=== PATIENT | female | born 2005 | race Caucasian/White ===

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

== ENCOUNTER 2023-01-18 08:30 | Outpatient (CLI) | payer OTHER, SELFPAY ==
[2023-01-18 08:52] VITALS: TEMP 36.7; O2SAT 99
[2023-01-18 08:53] VITALS: BP 118/65; PULSE 80
[2023-01-18 09:16] VITALS: BMI 34.9
--- NOTE | 2023-01-19 01:56 | OB.TRI.PN_ITS ---
Progress Notes Date of Service: 01/18/23 Progress Note: Patient presents for triage evaluation secondary to decreased movement FHT: 140 Moderate variability reactive 10 x 10 accels no decelerations category I tracing [place]: no regular Contractions Assessment and plan: dec movement Reactive NST, reassuring maternal and status patient discharged to home to follow-up as scheduled. See problem list details for additional plan information. Charges/Coding Procedures Urinary/Genital [id number]: 44464-44 non-stress test Interp
== END 2023-01-18 09:28 | disposition home or self-care (01) ==
LOC: WPOUT 08:36 → WP 08:37
PROVIDERS: PCP Nurse Practitioner Pediatrics; Referring Provider Obstetrics & Gynecology; Visit Provider Obstetrics & Gynecology
DX: O36.8190 Decreased fetal movements, unspecified trimester, not applicable or unspecified (principal); Z3A.00 Weeks of gestation of pregnancy not specified
CPT/HCPCS: 59050; 99221; G0378

== ENCOUNTER → 2023-02-08 | Outpatient (CLI) | payer OTHER, SELFPAY ==
[2023-02-08 10:44] LABS: Absolute Lymphocyte Count 1.67 X10^3/uL (0.83-4.51); Absolute Neutrophil Count 6.8 X10^3/uL (2.0-7.7); Basophil# 0.02 X10^3/uL; Basophil% 0.2 % (0-1); Eosinophil# 0.07 X10^3/uL; Eosinophils% 0.8 % (0-5); Hematocrit 34.3 % (37-47); Hemoglobin 11.2 g/dL (12.0-15.0); Lymphocyte # 1.67 X10^3/ul (0.83-4.51); Mean Corp Hgb Conc 32.7 g/dL (32-36); Mean Corpuscular Hgb 28.8 pg (27.0-32.0); Mean Corpuscular Volume 88.2 fL (81-99); Mean Platelet Vol. 10.4 fl (6.2-12.0); Monocyte# 0.66 X10^3/uL; Monocyte% 7.1 % (0-10); NRBC Flagged by Analyzer 0 % (0-5); Neutrophil % 73.1 % (47-70); Platelet Count 169 K/mm3 (150-450); RBC Distribution Width SD 42.4 fl (35.1-43.9); Red Blood Count 3.89 M/mm3 (4.2-5.4); White Blood Count 9.3 K/mm3 (4.4-11.0)
[2023-02-08 11:21] LABS: Glucose Challenge Gest 1H 50g 96 mg/dL (70-140)
[2023-02-08 11:53] LABS: HIV - WCH Non-Reactive (Nonreactive); Syphilis Antibodies Non-reactive
== END | disposition home or self-care (01) ==
LOC: PAVLAB 10:32
PROVIDERS: PCP Nurse Practitioner Pediatrics; Referring Provider Obstetrics & Gynecology; Visit Provider Obstetrics & Gynecology
DX: Z34.00 Encounter for supervision of normal first pregnancy, unspecified trimester (principal)
CPT/HCPCS: 36415; 82950; 85025; 86703; 86780

== ENCOUNTER → 2023-02-26 | Outpatient (CLI) | payer OTHER, SELFPAY | END | disposition home or self-care (01) | LOC: LABSPEC 16:16 | PROVIDERS: PCP Nurse Practitioner Pediatrics; Referring Provider Nurse Practitioner Women's Health; Visit Provider Nurse Practitioner Women's Health | DX: N89.8 Other specified noninflammatory disorders of vagina (principal) | CPT/HCPCS: 87070; 87205 ==

== ENCOUNTER → 2023-04-09 | Outpatient (CLI) | payer OTHER, SELFPAY | END | disposition home or self-care (01) | LOC: LABSPEC 11:37 | PROVIDERS: PCP Nurse Practitioner Pediatrics; Referring Provider Registered Nurse; Visit Provider Registered Nurse | DX: Z34.90 Encounter for supervision of normal pregnancy, unspecified, unspecified trimester (principal) | CPT/HCPCS: 87081 ==

== ENCOUNTER 2023-05-01 17:20 | Outpatient (CLI) | payer OTHER, SELFPAY ==
[2023-05-01 17:31] VITALS: BMI 37.0
[2023-05-01 17:36] VITALS: BP 126/82; PULSE 93
[2023-05-01] MEDS: Lactated Ringers 1,000 ML 999 ML IV (18:05)
[2023-05-01 18:16] LABS: Mucous, Urine 0 SEEN /hpf (<or=2+); Red Blood Cells-Urine 0 SEEN /hpf (0-5)
[2023-05-01 18:25] LABS: Color, Urine Yellow (Yellow); Glucose, Dipstick Normal (Normal); Ketone-Dipstick 5 mg/dl (Negative); Leukocyte Esterase-Dipstick 100 /ul (Negative); Nitrite-Dipstick Negative (Negative); Occult Blood-Urine Negative /ul (Negative); Protein-Dipstick 15 mg/dl (Negative); Urine Bilirubin Dipstick Negative (Negative); Urine Clarity Sl. Cloudy (Clear); Urine Urobilinogen 1 mg/dl (Normal)
[2023-05-01 18:43] LABS: Bacteria 1+ /hpf (None Seen); Squamous Epithelial Cells - UA 0-5 SEEN /hpf (5-10); White Blood Cells 0-5 SEEN /hpf (0-5)
--- NOTE | 2023-05-02 23:45 | OB.TRI.HP_ITS ---
HPI - General HPI Narrative LUCY ANDERSON, is a 18 @ 39 weeks 2 days who presents to L&D with lower than usual amount of kicks. By the time she got to us and was put on monitor the baby was moving rapidly Maternal Data Information RADHA Calculator Estimated Delivery Date Method Current WG Current Estimate 05/06/23 Ultrasound #1 39w 3d Other Estimates 05/11/23 LMP (Certain) 38w 5d 05/02/23 Ultrasound #2 40w 0d PFSH PFSH Medical History Anxiety Migraines Home Medications docosahexaenoic acid 200 mg capsule ( DHA) mg PO 12/13/22 [History Last Taken Unknown] Allergy/AdvReac Type Severity Reaction Status Date / Time doxycycline Allergy Intermediate hives, Verified 04/30/23 09:57 itching Family History Father Heart disease, Onset Age: 50 [place] Social History adopted: No household members: other details: 3 roommates housing: house current occupational status: employed 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 current occupational exposures/hazards: No pets and animals: Yes (boyfriend changing litter box) pets and animals: cat(s) and dog(s) history of recent travel: No sexually active: Yes Smoking Status: Never smoker second hand exposure: Yes alcohol intake: never substance use type: does not use well-balanced diet: rarely or never caffeine: Yes Type: carbonated beverages Number of servings: 2 and coffee Number of servings: 2 eating out: 1-3 times/week what type of physical activity do you participate in: walking frequency: 3-4 times per week seatbelt use: sometimes do you feel safe at home: Yes History 1 Elective abortions Hx Para 0 Spontaneous abortions Hx # Term Pregnancies Ectopic pregnancies Hx # Pregnancies Multiple births # of living children Visit Details Expected Delivery Route/Plan Labor Preferences- CB/BF classes: discussed labor support person: Esteban labor intervention preferences: low intervention pain management options preferred: prefers natural labor but open to epidural cut cord/dad catch: cord : yes PP control planned: considering IUD discussed possible routes of delivery and associated risks: [] special requests: [] Plans Covid status: discussed Flu vaccine: discussed Tdap vaccine: Discussed, obtained Rhogam: NA LARC form signed: yes movement and labor precautions reviewed. Problem list reviewed and updated with the most current plan of care details and appropriate orders placed. Relevant counseling for the gestational age provided. Continue routine care and follow up unless otherwise noted in visit notes/problem list details OB Flowsheet Initial Weight: 195 lb Date -?-?-?-?-?-?-?-?-?-?-?-?- EGA Weight BP Urine Prot -?-?-?-?-?-?-?-?-?-?-?-?- Glucose FHR FuHt Pres Dilation -?-?-?-?-?-?-?-?-?-?-?-?- Effaced St Visit Note 10/02/22 -?-?-?-?-?-?-?-?-?-?-?-?- 9w 1d 195 lb 8 oz (+8 oz) 115/75 -?-?-?-?-?-?-?-?-?-?-?-?- 185 -?-?-?-?-?-?-?-?-?-?-?-?- SM- CRL cons SM- CRL 2.2cm cons with LMP, small subchorionic hematoma seen 10/18/22 -?-?-?-?-?-?-?-?-?-?-?-?- 11w 3d 193 lb (-2 lb) 121/77 Negative -?-?-?-?-?-?-?-?-?-?-?-?- Negative 155 -?-?-?-?-?-?-?-?-?-?-?-?- JV- CRL now jewel uring 12 weeks. we discussed keeping due date consistent with the first ultrasound with radha 05/06/23 for accuracy. no longer see a subchorionic hem. pt reassured. 11/15/22 -?-?-?-?-?-?-?-?-?-?-?-?- 15w 3d 187 lb 4 oz (-7 lb 12 oz) 120/82 Negative -?-?-?-?-?-?-?-?-?-?-?-?- Negative 170 -?-?-?-?-?-?-?-?-?-?-?-?- MH-No Vb. Feels well. Normal PN labs. NIPT today. 12/13/22 -?-?-?-?-?-?-?-?-?-?-?-?- 19w 3d 187 lb 8 oz (-7 lb 8 oz) 187/8 118/78 Negative -?-?-?-?-?-?-?-?-?-?-?-?- Negative 150 -?-?-?-?-?-?-?-?-?-?-?-?- KW- no vb/ctx. A FP discussed-declines today. 01/10/23 -?-?-?-?-?-?-?-?-?-?-?-?- 23w 3d 191 lb 6 oz (-3 lb 10 oz) 126/76 Negative -?-?-?-?-?-?-?-?-?-?-?-?- Negative 140 24 -?-?-?-?-?-?-?-?-?-?-?-?- KW-+fm, no vb/lo f/ctx. no concerns. 28 week labs discussed 02/08/23 -?-?-?-?-?-?-?-?-?-?-?-?- 27w 4d 200 lb 8 oz (+5 lb 8 oz) 112/76 Negative -?-?-?-?-?-?-?-?-?-?-?-?- Negative 140 28 -?-?-?-?-?-?-?-?-?-?-?-?- SM- no vb lof go od fm n oregular ctx cbc gct today 02/26/23 -?-?-?-?-?-?-?--?-?-?-?-?- 30w 1d 200 lb 2 oz (+5 lb 2 oz) 112/74 Negative -?-?-?-?-?-?-?-?-?-?-?-?- Negative 146 30 -?-?-?-?-?-?-?-?-?-?-?-?- MH-Good FM. NO V B. Feels has increased DC w/irritation. See exam. 03/12/23 -?-?-?-?-?-?-?-?-?-?-?-?- 32w 1d 201 lb (+6 lb) 135/88 Negative -?-?-?-?-?-?-?-?-?-?-?-?- Negative 135 32 -?-?-?-?-?-?-?-?-?-?-?-?- LC- no lof/vb/ct x. good fm. increased nasal congestion no fevers. comfort techniques reviewed. 03/26/23 -?-?-?-?-?-?-?-?-?-?-?-?- 34w 1d 202 lb 2 oz (+7 lb 2 oz) 109/72 Negative -?-?-?-?-?-?-?-?-?-?-?-?- Negative 135 34 -?-?-?-?-?-?-?-?-?-?-?-?- SM- no vb lof go od fm no regular ctx discussed labor preferences 04/09/23 -?-?-?-?-?-?-?-?-?-?-?-?- 36w 1d 205 lb 4 oz (+10 lb 4 oz) 118/76 Negative -?-?-?-?-?-?-?-?-?-?-?-?- Negative 137 35 0.5 -?-?-?-?-?-?-?-?-?-?-?-?- 20 -3 LC- no vb/ ctx/lof. good fm. fell yesterday on bottom. enc to call if occurs in future. gbs collected today. 04/17/23 -?-?-?-?-?-?-?-?-?-?-?-?- 37w 2d 205 lb 4 oz (+10 lb 4 oz) 126/82 Negative -?-?-?-?-?-?-?-?-?-?-?-?- Negative 152 37 0.5 -?-?-?-?-?-?-?-?-?-?-?-?- MH-No VB, LOF. N o reg CTX. No cervical change. 04/24/23 -?-?-?-?-?-?-?-?-?-?-?-?- 38w 2d 207 lb (+12 lb) 125/76 Trace -?-?-?-?-?-?-?-?-?-?-?-?- Negative 140 37 1 -?-?-?-?-?-?-?-?-?-?-?-?- -3 KW-no vb /lof/ctx. good fm. labor precautions. 04/30/23 -?-?-?-?-?-?-?-?-?-?-?-?- 39w 1d 208 lb 8 oz (+13 lb 8 oz) 111/75 Negative -?-?-?-?-?-?-?-?-?-?-?-?- Negative 155 38 Cephalic 1 .5 -?-?-?-?-?-?-?-?-?-?-?-?- 60 -2 Sm- no vb lof good fm no regular ctx ROS Constitutional Constitutional: Reports systems reviewed and no addt'l complaints, except as doc umented Gastrointestinal Gastrointestinal: Denies bloating, constipation, cramping, diarrhea, nausea or vomiting Genitourinary Genitourinary: Reports other Details: Denies vaginal odor, vaginal bleeding, or vaginal discharge ; Denies difficulty urinating or flank pain NST FHR Rate Baby A Baseline: baseline 120 with runs of accels up to 150's Variability:: Minimal Accelerations:: 15 x 15 Decelerations:: None NST Reactive:: Yes FHR Category:: Category I Uterine Activity:: occasional contractions Assessment & Plan (1) Decreased movement affecting management of mother, antepartum: (2) Obesity affecting : COMMENT: 1 TM GCT, reviewed healthy weight gain. (3) : QUALIFIERS: Weeks of gestation: 39 weeks Qualified Code(s): Z3A.39 - 39 weeks gestation of COMMENT: GBS negative. NIPT low risk declines carrier and ntd screening, nl anatomy (4) Anxiety disorder affecting , antepartum: COMMENT: stable-not on medication (5) Supervision of normal first : QUALIFIERS: Trimester: third trimester Qualified Code(s): Z34.03 - Encounter for supervision of normal first , third trimester COMMENT: PRR RADHA 05/11/23 brigitte Torres PLAN: Plan nst shows very active fetus with baseline of 120 and runs of prolonged accelerations, moderate variability with accelerations. Charges/Coding Multi Select Codes Visit Charges Office Visit/Consults: 67821 OV L3 Est Urinary/Genital Urinary/Genital CPT Codes: 28537-60 non-stress test Interp
--- NOTE | 2023-05-02 23:45 | OB.TRI.NOTE ---
HPI - General HPI Narrative LUCY ANDERSON, is a 18 @ 39 weeks 2 days who presents to L&D with lower than usual amount of kicks. By the time she got to us and was put on monitor the baby was moving rapidly Maternal Data Information RADHA Calculator Estimated Delivery Date Method Current WG Current Estimate 05/06/23 Ultrasound #1 39w 3d Other Estimates 05/11/23 LMP (Certain) 38w 5d 05/02/23 Ultrasound #2 40w 0d PFSH PFSH Medical History Anxiety Migraines Home Medications docosahexaenoic acid 200 mg capsule ( DHA) mg PO 12/13/22 [History Last Taken Unknown] Allergy/AdvReac Type Severity Reaction Status Date / Time doxycycline Allergy Intermediate hives, Verified 04/30/23 09:57 itching Family History Father Heart disease, Onset Age: 50 [place] Social History adopted: No household members: other details: 3 roommates housing: house current occupational status: employed 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 current occupational exposures/hazards: No pets and animals: Yes (boyfriend changing litter box) pets and animals: cat(s) and dog(s) history of recent travel: No sexually active: Yes Smoking Status: Never smoker second hand exposure: Yes alcohol intake: never substance use type: does not use well-balanced diet: rarely or never caffeine: Yes Type: carbonated beverages Number of servings: 2 and coffee Number of servings: 2 eating out: 1-3 times/week what type of physical activity do you participate in: walking frequency: 3-4 times per week seatbelt use: sometimes do you feel safe at home: Yes History 1 Elective abortions Hx Para 0 Spontaneous abortions Hx # Term Pregnancies Ectopic pregnancies Hx # Pregnancies Multiple births # of living children Visit Details Expected Delivery Route/Plan Labor Preferences- CB/BF classes: discussed labor support person: Esteban labor intervention preferences: low intervention pain management options preferred: prefers natural labor but open to epidural cut cord/dad catch: cord : yes PP control planned: considering IUD discussed possible routes of delivery and associated risks: [] special requests: [] Plans Covid status: discussed Flu vaccine: discussed Tdap vaccine: Discussed, obtained Rhogam: NA LARC form signed: yes movement and labor precautions reviewed. Problem list reviewed and updated with the most current plan of care details and appropriate orders placed. Relevant counseling for the gestational age provided. Continue routine care and follow up unless otherwise noted in visit notes/problem list details OB Flowsheet Initial Weight: 195 lb Date <del>?</del> EGA Weight BP Urine Prot <del>?</del> Glucose FHR FuHt Pres Dilation <del>?</del> Effaced St Visit Note 10/02/22 <del>?</del> 9w 1d 195 lb 8 oz (+8 oz) 115/75 <del>?</del> 185 <del>?</del> SM- CRL cons SM- CRL 2.2cm cons with LMP, small subchorionic hematoma seen 10/18/22 <del>?</del> 11w 3d 193 lb (-2 lb) 121/77 Negative <del>?</del> Negative 155 <del>?</del> JV- CRL now measuring 12 weeks. we discussed keeping due date consistent with the first ultrasound with radha 05/06/23 for accuracy. no longer see a subchorionic hem. pt reassured. 11/15/22 <del>?</del> 15w 3d 187 lb 4 oz (-7 lb 12 oz) 120/82 Negative <del>?</del> Negative 170 <del>?</del> MH-No Vb. Feels well. Normal PN labs. NIPT today. 12/13/22 <del>?</del> 19w 3d 187 lb 8 oz (-7 lb 8 oz) 187/8 118/78 Negative <del>?</del> Negative 150 <del>?</del> KW- no vb/ctx. AFP discussed-declines today. 01/10/23 <del>?</del> 23w 3d 191 lb 6 oz (-3 lb 10 oz) 126/76 Negative <del>?</del> Negative 140 24 <del>?</del> KW-+fm, no vb/lof/ctx. no concerns. 28 week labs discussed 02/08/23 <del>?</del> 27w 4d 200 lb 8 oz (+5 lb 8 oz) 112/76 Negative <del>?</del> Negative 140 28 <del>?</del> SM- no vb lof good fm n oregular ctx cbc gct today 02/26/23 <del>?</del> 30w 1d 200 lb 2 oz (+5 lb 2 oz) 112/74 Negative <del>?</del> Negative 146 30 <del>?</del> MH-Good FM. NO VB. Feels has increased DC w/irritation. See exam. 03/12/23 <del>?</del> 32w 1d 201 lb (+6 lb) 135/88 Negative <del>?</del> Negative 135 32 <del>?</del> LC- no lof/vb/ctx. good fm. increased nasal congestion no fevers. comfort techniques reviewed. 03/26/23 <del>?</del> 34w 1d 202 lb 2 oz (+7 lb 2 oz) 109/72 Negative <del>?</del> Negative 135 34 <del>?</del> SM- no vb lof good fm no regular ctx discussed labor preferences 04/09/23 <del>?</del> 36w 1d 205 lb 4 oz (+10 lb 4 oz) 118/76 Negative <del>?</del> Negative 137 35 0.5 <del>?</del> 20 -3 LC- no vb/ctx/lof. good fm. fell yesterday on bottom. enc to call if occurs in future. gbs collected today. 04/17/23 <del>?</del> 37w 2d 205 lb 4 oz (+10 lb 4 oz) 126/82 Negative <del>?</del> Negative 152 37 0.5 <del>?</del> MH-No VB, LOF. No reg CTX. No cervical change. 04/24/23 <del>?</del> 38w 2d 207 lb (+12 lb) 125/76 Trace <del>?</del> Negative 140 37 1 <del>?</del> -3 KW-no vb/lof/ctx. good fm. labor precautions. 04/30/23 <del>?</del> 39w 1d 208 lb 8 oz (+13 lb 8 oz) 111/75 Negative <del>?</del> Negative 155 38 Cephalic 1.5 <del>?</del> 60 -2 Sm- no vb lof good fm no regular ctx ROS Constitutional Constitutional: Reports systems reviewed and no addt'l complaints, except as documented Gastrointestinal Gastrointestinal: Denies bloating, constipation, cramping, diarrhea, nausea or vomiting Genitourinary Genitourinary: Reports other Details: Denies vaginal odor, vaginal bleeding, or vaginal discharge ; Denies difficulty urinating or flank pain NST FHR Rate Baby A Baseline: baseline 120 with runs of accels up to 150's Variability:: Minimal Accelerations:: 15 x 15 Decelerations:: None NST Reactive:: Yes FHR Category:: Category I Uterine Activity:: occasional contractions Assessment & Plan (1) Decreased movement affecting management of mother, antepartum: (2) Obesity affecting : COMMENT: 1 TM GCT, reviewed healthy weight gain. (3) : QUALIFIERS: Weeks of gestation: 39 weeks Qualified Code(s): Z3A.39 - 39 weeks gestation of COMMENT: GBS negative. NIPT low risk declines carrier and ntd screening, nl anatomy (4) Anxiety disorder affecting , antepartum: COMMENT: stable-not on medication (5) Supervision of normal first : QUALIFIERS: Trimester: third trimester Qualified Code(s): Z34.03 - Encounter for supervision of normal first , third trimester COMMENT: PRR RADHA 05/11/23 brigitte Torres PLAN: Plan nst shows very active fetus with baseline of 120 and runs of prolonged accelerations, moderate variability with accelerations. Charges/Coding Multi Select Codes Visit Charges Office Visit/Consults: 47302 OV L3 Est Urinary/Genital Urinary/Genital CPT Codes: 16283-25 non-stress test Interp
== END 2023-05-01 19:30 | disposition home or self-care (01) ==
LOC: WPOUT 17:22 → WP 17:23
PROVIDERS: PCP Nurse Practitioner Pediatrics; Referring Provider Obstetrics & Gynecology; Visit Provider Obstetrics & Gynecology
DX: O36.8130 Decreased fetal movements, third trimester, not applicable or unspecified (principal); Z3A.39 39 weeks gestation of pregnancy; O99.213 Obesity complicating pregnancy, third trimester; O99.343 Other mental disorders complicating pregnancy, third trimester; F41.9 Anxiety disorder, unspecified
CPT/HCPCS: 96360; 59025; 59050; 81001; 87086; 87428; 99221; J7120; G0378

== ENCOUNTER 2023-05-07 19:11 | Inpatient (IN) | payer OTHER, SELFPAY ==
[2023-05-07] VITALS (10 sets, daily range): BP systolic 129–131; BP diastolic 70–87; PULSE 86–114; TEMP 36.6–36.8; O2SAT 97–99; BMI 37.2
[2023-05-07] MEDS: 0.9% Saline Lock 10 ML Syringe IV (20:00)
[2023-05-07 20:24] LABS: Absolute Lymphocyte Count 1.72 X10^3/uL (0.83-4.51); Absolute Neutrophil Count 7.8 X10^3/uL (2.0-7.7); Basophil# 0.03 X10^3/uL; Basophil% 0.3 % (0-1); Eosinophil# 0.04 X10^3/uL; Eosinophils% 0.4 % (0-5); Hematocrit 35.8 % (37-47); Hemoglobin 11.6 g/dL (12.0-15.0); Lymphocyte # 1.72 X10^3/ul (0.83-4.51); Mean Corp Hgb Conc 32.4 g/dL (32-36); Mean Corpuscular Hgb 27.9 pg (27.0-32.0); Mean Corpuscular Volume 86.1 fL (81-99); Mean Platelet Vol. 11.4 fl (6.2-12.0); Monocyte% 4.9 % (0-10); NRBC Flagged by Analyzer 0 % (0-5); Neutrophil # 7.82 X10^3/uL (2.7-7.7); Neutrophil % 77.1 % (47-70); Platelet Count 158 K/mm3 (150-450); RBC Distribution Width SD 42.9 fl (35.1-43.9); Red Blood Count 4.16 M/mm3 (4.2-5.4); White Blood Count 10.1 K/mm3 (4.4-11.0)
[2023-05-07 21:04] LABS: Syphilis Antibodies Non-reactive
--- NOTE | 2023-05-07 21:46 | HP.PCM.OB_ITS ---
HPI - General General Date of Admission: 05/07/23 HPI Narrative LUCY ANDERSON, is a 18 F who presents for oligo hydramnios 4 cm today in US. no vb lof admits good fm no regular ctx Maternal Data Information RADHA Calculator Estimated Delivery Date Method Current WG Current Estimate 05/06/23 Ultrasound #1 40w 1d Other Estimates 05/11/23 LMP (Certain) 39w 3d 05/02/23 Ultrasound #2 40w 5d PFSH PFSH Medical History Anxiety Migraines Home Medications docosahexaenoic acid 200 mg capsule ( DHA) mg PO 12/13/22 [History Last Taken Unknown] Allergy/AdvReac Type Severity Reaction Status Date / Time doxycycline Allergy Intermediate hives, Verified 05/07/23 20:15 itching Family History Father Heart disease, Onset Age: 50 [place] Surgical History no surgical history Social History adopted: No household members: other details: 3 roommates housing: house current occupational status: employed 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 current occupational exposures/hazards: No pets and animals: Yes (boyfriend changing litter box) pets and animals: cat(s) and dog(s) history of recent travel: No sexually active: Yes Smoking Status: Never smoker second hand exposure: Yes alcohol intake: never substance use type: does not use well-balanced diet: rarely or never caffeine: Yes Type: carbonated beverages Number of servings: 2 and coffee Number of servings: 2 eating out: 1-3 times/week what type of physical activity do you participate in: walking frequency: 3-4 times per week seatbelt use: sometimes do you feel safe at home: Yes History 1 Elective abortions Hx Para 0 Spontaneous abortions Hx # Term Pregnancies Ectopic pregnancies Hx # Pregnancies Multiple births # of living children Visit Details Expected Delivery Route/Plan Labor Preferences- CB/BF classes: discussed labor support person: Esteban labor intervention preferences: low intervention pain management options preferred: prefers natural labor but open to epidural cut cord/dad catch: cord : yes PP control planned: considering IUD discussed possible routes of delivery and associated risks: [] special requests: [] Plans Covid status: discussed Flu vaccine: discussed Tdap vaccine: Discussed, obtained Rhogam: NA LARC form signed: yes movement and labor precautions reviewed. Problem list reviewed and updated with the most current plan of care details and appropriate orders placed. Relevant counseling for the gestational age provided. Continue routine care and follow up unless otherwise noted in visit notes/problem list details OB Flowsheet Initial Weight: 195 lb Date -?-?-?-?-?-?-?-?-?-?-?-?- EGA Weight BP Urine Prot -?-?-?-?-?-?-?-?-?-?-?-?- Glucose FHR FuHt Pres Dilation -?-?-?-?-?-?-?-?-?-?-?-?- Effaced St Visit Note 10/02/22 -?-?-?-?-?-?-?-?-?-?-?-?- 9w 1d 195 lb 8 oz (+8 oz) 115/75 -?-?-?-?-?-?-?-?-?-?-?-?- 185 -?-?-?-?-?-?-?-?-?-?-?-?- SM- CRL cons SM- CRL 2.2cm cons with LMP, small subchorionic hematoma seen 10/18/22 -?-?-?-?-?-?-?-?-?-?-?-?- 11w 3d 193 lb (-2 lb) 121/77 Negative -?-?-?-?-?-?-?-?-?-?-?-?- Negative 155 -?-?-?-?-?-?-?-?-?-?-?-?- JV- CRL now jewel uring 12 weeks. we discussed keeping due date consistent with the first ultrasound with radha 05/06/23 for accuracy. no longer see a subchorionic hem. pt reassured. 11/15/22 -?-?-?-?-?-?-?-?-?-?-?-?- 15w 3d 187 lb 4 oz (-7 lb 12 oz) 120/82 Negative -?-?-?-?-?-?-?-?-?-?-?-?- Negative 170 -?-?-?-?-?-?-?-?-?-?-?-?- MH-No Vb. Feels well. Normal PN labs. NIPT today. 12/13/22 -?-?-?-?-?-?-?-?-?-?-?-?- 19w 3d 187 lb 8 oz (-7 lb 8 oz) 187/8 118/78 Negative -?--?-?-?-?-?-?-?-?-?-?-?- Negative 150 -?-?-?-?-?-?-?-?-?-?-?-?- KW- no vb/ctx. A FP discussed-declines today. 01/10/23 -?-?-?-?-?-?-?-?-?-?-?-?- 23w 3d 191 lb 6 oz (-3 lb 10 oz) 126/76 Negative -?-?-?-?-?-?-?-?-?-?-?-?- Negative 140 24 -?-?-?-?-?-?-?-?-?-?-?-?- KW-+fm, no vb/lo f/ctx. no concerns. 28 week labs discussed 02/08/23 -?-?-?-?-?-?-?-?-?-?-?-?- 27w 4d 200 lb 8 oz (+5 lb 8 oz) 112/76 Negative -?-?-?-?-?-?-?-?-?-?-?-?- Negative 140 28 -?-?-?-?-?-?-?-?-?-?-?-?- SM- no vb lof go od fm n oregular ctx cbc gct today 02/26/23 -?-?-?-?-?-?-?-?-?-?-?-?- 30w 1d 200 lb 2 oz (+5 lb 2 oz) 112/74 Negative -?-?-?-?-?-?-?-?-?-?-?-?- Negative 146 30 -?-?-?-?-?-?-?-?-?-?-?-?- MH-Good FM. NO V B. Feels has increased DC w/irritation. See exam. 03/12/23 -?-?-?-?-?-?-?-?-?-?-?-?- 32w 1d 201 lb (+6 lb) 135/88 Negative -?-?-?-?-?-?-?-?-?-?-?-?- Negative 135 32 -?-?-?-?-?-?-?-?-?-?-?-?- LC- no lof/vb/ct x. good fm. increased nasal congestion no fevers. comfort techniques reviewed. 03/26/23 -?-?-?-?-?-?-?-?-?-?-?-?- 34w 1d 202 lb 2 oz (+7 lb 2 oz) 109/72 Negative -?-?-?-?-?-?-?-?-?-?-?-?- Negative 135 34 -?-?-?-?-?-?-?-?-?-?-?-?- SM- no vb lof go od fm no regular ctx discussed labor preferences 04/09/23 -?-?-?-?-?-?-?-?-?-?-?-?- 36w 1d 205 lb 4 oz (+10 lb 4 oz) 118/76 Negative -?-?-?-?-?-?-?-?-?-?-?-?- Negative 137 35 0.5 -?-?-?-?-?-?-?-?-?-?-?-?- 20 -3 LC- no vb/ ctx/lof. good fm. fell yesterday on bottom. enc to call if occurs in future. gbs collected today. 04/17/23 -?-?-?-?-?-?-?-?-?-?-?-?- 37w 2d 205 lb 4 oz (+10 lb 4 oz) 126/82 Negative -?-?-?-?-?-?-?-?-?-?-?-?- Negative 152 37 0.5 -?-?-?-?-?-?-?-?-?-?-?-?- MH-No VB, LOF. N o reg CTX. No cervical change. 04/24/23 -?-?-?-?-?-?-?-?-?-?-?-?- 38w 2d 207 lb (+12 lb) 125/76 Trace -?-?-?-?-?-?-?-?-?-?-?-?- Negative 140 37 1 -?-?-?-?-?-?-?-?-?-?-?-?- -3 KW-no vb /lof/ctx. good fm. labor precautions. 04/30/23 -?-?-?-?-?-?-?-?-?-?-?-?- 39w 1d 208 lb 8 oz (+13 lb 8 oz) 111/75 Negative -?-?-?-?-?-?-?-?-?-?-?-?- Negative 155 38 Cephalic 1 .5 -?-?-?-?-?-?-?-?-?-?-?-?- 60 -2 Sm- no vb lof good fm no regular ctx 05/07/23 -?-?-?-?-?-?-?-?-?-?-?-?- 40w 1d 210 lb 6 oz (+15 lb 6 oz) 112/76 -?-?-?-?-?-?-?-?-?-?-?-?- 150 37 Cephalic 1.5 -?-?-?-?-?-?-?-?-?-?-?-?- 60 -4 SM- no vb lof good fm no regular ctx get growth US NST FHR Rate Baby A Baseline: 130 Variability:: Moderate Accelerations:: 15 x 15 Decelerations:: None NST Reactive:: Yes FHR Category:: Category I Uterine Activity:: irregular ROS Constitutional Constitutional: Reports systems reviewed and no addt'l complaints, except as documented Eyes Eyes: Denies change in vision ENT HEENT: Reports systems reviewed and no addt'l complaints, except as documented; Denies headache(s) Cardiovascular Cardiovascular: Reports systems reviewed and no addt'l complaints, except as documented; Denies chest pain or dyspnea Respiratory/Chest Respiratory/Chest: Reports systems reviewed and no addt'l complaints, except as documented Gastrointestinal Gastrointestinal: Reports systems reviewed and no addt'l complaints, except as documented; Denies abdominal pain Genitourinary Genitourinary: Reports systems reviewed and no addt'l complaints, except as docu mented, contractions Details: present (irregular) and movement Details: present; Denies dysuria or genital lesions Musculoskeletal Musculoskeletal: Reports systems reviewed and no addt'l complaints, except as documented Neurologic Neurologic: Reports systems reviewed and no addt'l complaints, except as documented Endocrine Endocrinology: Reports systems reviewed and no addt'l complaints, except as documented Vital Signs Vital Signs Vital Signs: 05/07/23 19:47 05/07/23 19:48 05/07/23 19:48 Temperature Temperature Source Pulse Rate 114 H Blood Pressure 131/87 H BP Systolic 131 BP Diastolic 87 Pulse Ox 98 05/07/23 19:48 05/07/23 19:48 05/07/23 19:48 Temperature 97.8 F Temperature Source Temporal Pulse Rate Blood Pressure BP Systolic BP Diastolic Pulse Ox 99 05/07/23 20:39 05/07/23 20:39 05/07/23 20:55 Temperature Temperature Source Pulse Rate 87 96 Blood Pressure BP Systolic BP Diastolic Pulse Ox 97 05/07/23 20:55 05/07/23 21:00 05/07/23 21:00 Temperature Temperature Source Pulse Rate 91 Blood Pressure BP Systolic BP Diastolic Pulse Ox 98 99 05/07/23 21:13 05/07/23 21:13 05/07/23 21:18 Temperature Temperature Source Pulse Rate 86 91 Blood Pressure BP Systolic BP Diastolic Pulse Ox 98 05/07/23 21:18 Temperature Temperature Source Pulse Rate Blood Pressure BP Systolic BP Diastolic Pulse Ox 98 Weight Weight: 210 lb 1.608 oz Body Mass Index (BMI) 37.2 Physical Exam Const alert, oriented x3, no apparent distress and healthy appearing HEENT normocephalic and moist oral mucous membranes Head and Scalp: atraumatic Neck full ROM, no lymphadenopathy, supple and thyroid normal General: trachea midline Lymph Lymphatic: no lymphadenopathy noted Chest inspection of chest normal Resp normal respiratory effort Cardio regular rate GI normal to inspection, nondistended, normoactive bowel sounds, soft to palpation and non-tender Inspection: gravid external exam normal Manual OB Exam: estimated gestational size appropriate, presentation cephalic, dilated, effaced and station Extremity normal to inspection General Extremity: Negative for edema Skin no rashes or lesions noted Neuro no focal motor deficits and deep tendon reflexes 2+ bilaterally Motor Exam: strength 5/5 throughout and clonus absent Psych mental status grossly normal Labs Labs Labs: Blood Type O POSITIVE Antibody Screen NEGATIVE Hct 35.8 % (37-47) L Hgb 11.6 g/dL (12.0-15.0) L Obstetrics US Syphilis Total Ab Non-reactive Rubella IgG Antibody Reactive (Nonreactive) Hep Bs Antigen Non-Reactive (Nonreactive) Chlamydia DNA (KARIME) Negative (Negative) Neisseria gonorrhoeae DNA (KARIME) Negative (Negative) HIV 1&2 Antibody Non-Reactive (Nonreactive) Glucose 1 Hr 50 gm 96 mg/dL (70-140) Assessment & Plan (1) Uterine size date discrepancy: (2) Obesity affecting : COMMENT: 1 TM GCT, reviewed healthy weight gain. (3) : QUALIFIERS: Weeks of gestation: 40 weeks Qualified Code(s): Z3A.40 - 40 weeks gestation of COMMENT: GBS negative. NIPT low risk declines carrier and ntd screening, nl anatomy (4) Anxiety disorder affecting , antepartum: COMMENT: stable-not on medication (5) Supervision of normal first : QUALIFIERS: Trimester: third trimester Qualified Code(s): Z34.03 - Encounter for supervision of normal first , third trimester COMMENT: PRR RADHA 05/11/23 brigitte Torres (6) Encounter for induction of labor: (7) Oligohydramnios in third trimester: PLAN: Plan Patient presents IOL, plan management for with cytotec. Pain management: plans epidural. GBS negative. Management of any complications: oligo I have reviewed the [facility] and made any clinically relevant updates.
[2023-05-07] MEDS: miSOPROStol 25 MCG TABLET VAGINAL (21:57)
[2023-05-08] VITALS (115 sets, daily range): BP systolic 103–143; BP diastolic 52–80; PULSE 81–181; RESP 18; TEMP 36.3–38; O2SAT 90–100
[2023-05-08] MEDS: 0.9% Saline Lock 10 ML Syringe IV ×2 (00:01→13:00)
[2023-05-08] MEDS: Lactated Ringers 1,000 ML 50 ML IV (00:01)
[2023-05-08] MEDS: LACTATED RINGERS 500 ML 999 ML IV ×4 (00:01→08:27)
[2023-05-08] MEDS: fentaNYL-bupivacaine (epidural) 100 ML BAG EPIDURAL ×2 (00:49→05:17)
--- NOTE | 2023-05-08 03:17 | PCM.PN.BLA ---
Progress Note arom clear fluid 6 cm made quick change internal placed. exp managment, position changes
[2023-05-08] MEDS: Lactated Ringers 1,000 ML 200 ML IV ×2 (05:17→08:00)
[2023-05-08] MEDS: Terbutaline 1 MG/ML Vial 0.25 MG SC (05:54)
[2023-05-08] MEDS: Amnioinfusion- 0.9% NS 1,000 ML IV.SOLN. 1000 ML INTRA-UTER (06:02)
[2023-05-08] MEDS: Oxytocin 10 UNITS/ML Vial IM (09:47)
[2023-05-08] MEDS: Oxytocin 15 Units/NS 250ml 15 UNITS/250 ML IV.SOLN 83 UNITS IV (09:49)
--- NOTE | 2023-05-08 10:18 | OP.PCM_ITS ---
Assessment & Plan (1) Vaginal delivery: COMMENT: KW 40 IOL Oligo boy Zack Maternal Data Information RADHA Calculator Estimated Delivery Date Method Current WG Current Estimate 05/06/23 Ultrasound #1 40w 2d Other Estimates 05/11/23 LMP (Certain) 39w 4d 05/02/23 Ultrasound #2 40w 6d Final RADHA: 05/06/23 Final RADHA Source: US >20 weeks Gestational age: 40.2 Vaginal Delivery Maternal Presentation Maternal Presentation: Medically Indicated Induction Maternal Presentation: Progressed well to 10cm dilated and made steady progress with effective maternal pushing. Delivered the head in DIMITRY presentation. The head was delivered atraumatically and no nuchal cord was identified. The anterior and posterior shoulders delivered without complication followed by the rest of the infant, cord was noted to be wrapped under the posterior shoulder. the infant was placed on the maternal abdomen. Delayed cord clamping was employed for approximately 2 minutes. Cord was clamped and cut and gentle traction was applied to the cord and the placenta delivered spontaneously. Immediately following, it was noted to be intact with a 3 vessel cord. Some trailing membranes noted and gently extracted with ring forceps. The perineum and vagina were inspected and noted to have no laceration a second degree laceration which was repaired with 3-0 Vicryl in the usual fashion. EBL was 150cc. Patient and infant tolerated delivery well. Apgars 8/9. Dr Abdul notified of vaginal delivery and orders reviewed. Physician agrees with current plan of care. Type of Induction: Cytotec Medical Reason for Induction: Compromise: list: (oligohydramnios ) Operative Information Date of Procedure: 05/08/23 Pre-Operative Diagnosis: See AP comments Post-Operative Diagnosis: Same Surgery / Procedure Performed: Spontaneous Vaginal Delivery marketing effectiveness manager #1: Anne Brooks Type of Anesthesia: Epidural Estimated Blood Loss: 150 Time of Delivery: 09:15 Findings Presentation: Vertex Amniotic Fluid Description: Lightly stained meconium Placental Delivery Description: Spontaneous Placenta Disposition: [facility] Cord Vessel Description: 3 Vessels Cord Entanglement: - (under posterior shoulder) Infant A Gender: Male (1 minute): 8 (5 minute): 9 Delayed Cord Clamping: Yes Post Vaginal Delivery Medications Given After Delivery: IV Pitocin and IM Pitocin Episiotomy Description: None Laceration: 2nd degree Complication Complications: None Multi Select Codes Urinary/Genital Urinary/Genital CPT Codes: 79887 Vaginal Delivery [facility]
--- NOTE | 2023-05-08 13:00 | DCINST_ITS ---
Discharge Instructions Diet Discharge Diet: No restrictions Activity Discharge Activity: Return to Normal Activity May resume sexual activity in: 6-8 weeks Dressing / Incision Call your doctor if you observe: Fever of 101 or Higher, Coldness, Increased Pain, Numbness or Tingling, Change in Color, Inability to urinate, Inability to have a bowel movement, Using more than 1 pad per hour, Shortness of breath, Dizziness, Fainting spells, Swelling in the ankles, Chest pain, Increased palpitations (irregular heartbeat), Calf discomfort and Uncontrolled pain Follow Up Care Please Follow Up With: Anne Brooks CNM When: Please call the office to schedule your follow up appointment in 6 weeks. If you had high blood pressure please call to schedule an appointment in 2 weeks. Test Results: Test results from this visit will be discussed in further detail at your follow- up appointment, if applicable. Discharge Plan Admission Admit Date/Time: 05/07/23 19:11 Attending Provider: Anne Brooks Primary Care Provider: Marine Mart NP Discharge Orders/Prescriptions Prescriptions: No Action DHA 200 mg capsule PO Referrals / Follow Up: Marine Mart NP, CHANGE PERSON-C [Primary Care Provider] - Disposition Disposition (needs filled in before D/C Order can be placed): Home, Self Care
[2023-05-09 00:21] VITALS: BP 114/69; PULSE 88; RESP 18; TEMP 36.1; O2SAT 98
[2023-05-09 05:04] VITALS: BP 104/50; PULSE 81; RESP 16; TEMP 36.1; O2SAT 97
--- NOTE | 2023-05-09 07:58 | PCM.PN.OB ---
Subjective Subjective Patient doing well without complaints. Tolerating PO. Ambulating and voiding without difficulty. Feeding well. Denies chest pain, shortness of breath, calf pain/swelling, fevers, chills, lightheadedness. Objective Data Objective Data Vital Signs: Vital Signs Temp Pulse Resp BP Pulse Ox O2 Del Method 97 F L 81 16 104/50 L 97 Room Air 05/09/23 05:04 05/09/23 05:04 05/09/23 05:04 05/09/23 05:04 05/09/23 05:04 05/09/23 05:04 Oxygen Delivery Method Room Air Weight: 210 lb 1.608 oz Body Mass Index (BMI) 37.2 Intake & Output: Intake and Output for Last 24 Hours 05/07/23 05/08/23 05/09/23 23:59 23:59 23:59 Intake Total 3517.50 / 3517.50 Output Total 1500 / 1500 Balance 2016.50 / 2016.50 Lab / Micro Data 05/07/23 20:00 ROS Constitutional Constitutional: Denies chills, fatigue, fever(s), poor appetite or weakness Eyes Eyes: Denies blurry vision, change in vision, seeing flashes or spots in vision ENT HEENT: Denies dizziness, headache(s), loss taste/smell or sore throat Cardiovascular Cardiovascular: Denies chest pain, dizziness, dyspnea, irregular heart rhythm, palpitations or rapid heart rate Respiratory/Chest Respiratory/Chest: Denies chest tightness, cough, dyspnea or breast pain Gastrointestinal Gastrointestinal: Denies abdominal pain, constipation or vomiting Genitourinary Genitourinary: Denies dysuria or flank pain Musculoskeletal Musculoskeletal: Denies difficulty walking, joint pain, limited range of motion or numbness Neurologic Neurologic: Denies abnormal movements, abnormal speech, dizziness, numbness, seizure-like activity or syncope Psychiatric Psychiatric: Denies anxiety, behavioral changes, change in appetite, confusion, depression or suicidal thoughts Physical Exam Const alert, oriented x3 and no apparent distress General Appearance: cooperative and comfortable Resp normal respiratory effort Cardio regular rate GI normal to inspection, nondistended, normoactive bowel sounds GI Narrative: uterus is firm below umbilicus Palpation: soft Back/Spine no CVA tenderness and thoraco-lumbar ROM normal Extremity normal to inspection, no clubbing, cyanosis or edema, no calf tenderness and no pedal edema Psych mental status grossly normal, thought process normal, cooperative, affect normal, speech normal, activity/motor behavior normal, denies homicidal ideation and denies suicidal ideation Assessment & Plan (1) Vaginal delivery: COMMENT: KW 40 IOL Oligo boy Zack (2) Anxiety disorder affecting , antepartum: COMMENT: stable-not on medication PLAN: Plan s/p PPD # 1 1. routine post delivery care 2. breast feeding- support given 3. rh positive 4. rubella immune
[2023-05-09 09:00] VITALS: BP 106/60; PULSE 80; RESP 16; TEMP 36.6
[2023-05-09 13:48] VITALS: BP 116/71; PULSE 85; RESP 16; TEMP 36.6
[2023-05-09 20:37] VITALS: BP 125/71; PULSE 18; RESP 18; TEMP 36.4
[2023-05-10 03:00] VITALS: BP 117/68; PULSE 79; RESP 18
--- NOTE | 2023-05-10 07:24 | PCM.PN.OB ---
Subjective Subjective Patient doing well without complaints. Tolerating PO. Ambulating and voiding without difficulty. feeding well. Denies chest pain, shortness of breath, calf pain/swelling, fevers, chills, lightheadedness. Objective Data Objective Data Vital Signs: Vital Signs Temp Pulse Resp BP Pulse Ox O2 Del Method 97.6 F L 79 18 117/68 97 Room Air 05/09/23 20:37 05/10/23 03:00 05/10/23 03:00 05/10/23 03:00 05/09/23 05:04 05/10/23 03:00 Oxygen Delivery Method Room Air Weight: 210 lb 1.608 oz Body Mass Index (BMI) 37.2 Intake & Output: Intake and Output for Last 24 Hours 05/08/23 05/09/23 05/10/23 23:59 23:59 23:59 Intake Total 3517.50 / 3517.50 Output Total 1500 / 1500 Balance 2017.50 / 2017.50 Lab / Micro Data 05/07/23 20:00 ROS Constitutional Constitutional: Reports systems reviewed and no addt'l complaints, except as documented Cardiovascular Cardiovascular: Reports systems reviewed and no addt'l complaints, except as documented Respiratory/Chest Respiratory/Chest: Reports systems reviewed and no addt'l complaints, except as documented Gastrointestinal Gastrointestinal: Reports systems reviewed and no addt'l complaints, except as documented Physical Exam Const alert, oriented x3 and no apparent distress HEENT Head and Scalp: atraumatic Resp normal respiratory effort GI soft to palpation and non-tender Bimanual Exam - Vag & Uterus: uterus non-tender Uterus Palpation: uterus fundus firm (below Umbilicus) Assessment & Plan (1) Vaginal delivery: COMMENT: KW 40 IOL Oligo boy Zack (2) Anxiety disorder affecting , antepartum: COMMENT: stable-not on medication PLAN: Plan s/p PPD # 2 1. routine post delivery care 2. breast feeding- support given 3. rh positive 4. rubella immune
[2023-05-10 08:34] VITALS: BP 111/74; PULSE 87; RESP 16; TEMP 36.7; O2SAT 99
== END 2023-05-10 10:19 | disposition home or self-care (01) | DRG 807 ==
PROVIDERS: Obstetrics & Gynecology; Admitting Provider Advanced Practice Midwife; PCP Nurse Practitioner Pediatrics; Visit Provider Advanced Practice Midwife
DX: O41.03X0 Oligohydramnios, third trimester, not applicable or unspecified (principal); Z37.0 Single live birth; E66.8 Other obesity; O99.214 Obesity complicating childbirth; O26.843 Uterine size-date discrepancy, third trimester; Z3A.40 40 weeks gestation of pregnancy; O77.0 Labor and delivery complicated by meconium in amniotic fluid; O70.1 Second degree perineal laceration during delivery
CPT/HCPCS: 59025; 59050; 85025; 86780; 86850; 86900; 86901; 93005; 99221; J7030; J7120; A4216; G0378

== ENCOUNTER → 2023-05-07 | Outpatient (CLI) | payer OTHER, SELFPAY ==
--- NOTE | 2023-05-07 18:25 | US_ITS ---
STUDY: SECOND AND THIRD TRIMESTER OBSTETRICAL ULTRASOUND - LIMITED REASON FOR EXAM: Female, 18 years old uterine size date discrepancy -- RONALDO LMP: PRIOR ULTRASOUND: None. TECHNIQUE: Transabdominal TECHNICAL QUALITY: Adequate. FINDINGS: There is a single intrauterine fetus. The fetus is in a cephalic presentation. There is demonstrated cardiac activity with a heart rate of 144 bpm. There is a normal amniotic fluid volume. The largest amniotic fluid pocket measures 4.7 cm. The amniotic fluid index (RONALDO) is 6.5 cm. The placenta is anterior in location and is not low lying. There are Grade 2 placental changes. The cervix measures cm in length. BIOMETRY: BPD: 9.6 cm: 39 weeks, 1 days HC: 35.4 cm: 41 weeks, 3 days AC: 34.8 cm: 38 weeks, 5 days FL: 7.5 cm: 38 weeks, 2 days Age by LMP: 40 weeks, 1 days. RADHA by LMP: 05/06/2023. age by prior US: weeks, days. RADHA by prior US: . age by current US: 39 weeks, 3 days. RADHA by current US: 05/11/2023. Estimated weight: 3597 grams, +/- 540 grams, percentile. Gender: US/OB Limited With Biometrics IMPRESSION: Living intrauterine of 39 weeks 3 days as described above. Electronically Signed: Jaquan Wilson MD at 20:54 EDT ,
== END | disposition home or self-care (01) ==
LOC: US 18:20
PROVIDERS: PCP Nurse Practitioner Pediatrics; Visit Provider Obstetrics & Gynecology
DX: O26.849 Uterine size-date discrepancy, unspecified trimester (principal); Z3A.00 Weeks of gestation of pregnancy not specified
CPT/HCPCS: 76816

== ENCOUNTER 2023-06-30 02:43 | Observation (INO) | payer OTHER, SELFPAY ==
[2023-06-30] VITALS (8 sets, daily range): BP systolic 106–121; BP diastolic 55–88; PULSE 57–78; RESP 14–18; TEMP 36.5–36.7; O2SAT 95–100; BMI 33.3; BMI 33.8
[2023-06-30 03:36] LABS: Absolute Lymphocyte Count 0.55 X10^3/uL (0.83-4.51); Absolute Neutrophil Count 5.3 X10^3/uL (2.0-7.7); Basophil# 0.03 X10^3/uL; Basophil% 0.5 % (0-1); Eosinophil# 0.05 X10^3/uL; Eosinophils% 0.8 % (0-5); Hematocrit 43.8 % (37-47); Hemoglobin 13.5 g/dL (12.0-15.0); Lymphocyte # 0.55 X10^3/ul (0.83-4.51); Lymphocyte % 8.6 % (19-41); Mean Corp Hgb Conc 30.8 g/dL (32-36); Mean Corpuscular Hgb 26.5 pg (27.0-32.0); Mean Corpuscular Volume 85.9 fL (81-99); Mean Platelet Vol. 11.2 fl (6.2-12.0); Monocyte# 0.44 X10^3/uL; Monocyte% 6.9 % (0-10); NRBC Flagged by Analyzer 0 % (0-5); Neutrophil # 5.27 X10^3/uL (2.7-7.7); Neutrophil % 82.9 % (47-70); POSITIVE DIFFERENTIAL YES; Platelet Count 229 K/mm3 (150-450); RBC Distribution Width CV 13.8 % (11.6-14.6); RBC Distribution Width SD 43.7 fl (35.1-43.9); White Blood Count 6.4 K/mm3 (4.4-11.0)
[2023-06-30] MEDS: Morphine 4 MG/ML Syringe IV (03:37)
[2023-06-30] MEDS: Ondansetron 4 MG/2 ML Vial IV (03:37)
[2023-06-30] MEDS: 0.9% Normal Saline (1000mL) 1,000 ML 999 ML IV (03:37)
[2023-06-30 03:41] LABS: Differential Indicated SCAN CRITERIA MET
[2023-06-30 03:55] LABS: AST(SGOT) 636 U/L (15-37); Alanine Aminotransfer ALT/SGPT 399 U/L (13-56); Albumin, Serum 4.2 g/dL (3.2-5.0); Alkaline Phosphatase 407 U/L (45-117); Anion Gap 5 (5-15); BUN 11 mg/dL (7-18); Bilirubin, Direct 1.49 mg/dL (0.00-0.30); Calcium,Total 9.7 mg/dL (8.5-10.1); Chloride 107 mmol/L (98-107); Creatinine, Serum 0.85 mg/dL (0.55-1.02); EST Glomerular Filtration Rate 91 mL/min (>60); Est Glom Filt Rate - Afr Amer 110 mL/min (>60); Estimated Creatinine Clearance 87.33 ml/min; Globulin 3.7 g/dL (2.2-4.2); Glucose 151 mg/dL (74-106); Lipase 65 U/L (13-75); Potassium 3.7 mmol/L (3.5-5.1); Protein, Total 7.9 g/dL (6.4-8.2); Sodium Level 139 mmol/L (136-145)
[2023-06-30 04:03] LABS: Differential Comment SCANNED
--- NOTE | 2023-06-30 04:06 | CT_ITS ---
EXAM: CT ABDOMEN AND PELVIS WITH INTRAVENOUS CONTRAST CLINICAL INDICATION: abd pain TECHNIQUE: Helically acquired images were obtained of the abdomen and pelvis with intravenous contrast. This CT exam was performed using one or more of the following dose reduction techniques: automated exposure control, adjustment of the mA and/or kV according to patient size, and/or use of iterative reconstruction technique. CONTRAST: 100 cc of Isovue-370 IV. RADIATION DOSE: CTDIvol = 17.18 mGy, DLP = 982.73 mGy-cm COMPARISON: No relevant prior studies available. FINDINGS: LOWER THORAX: Unremarkable. Lung bases are clear. No cardiomegaly. No significant pericardial effusion. ABDOMEN: LIVER: See below. GALLBLADDER AND BILE DUCTS: Mild pericholecystic and periportal edema. No intra- or extrahepatic biliary ductal dilation. PANCREAS: Unremarkable. No focal cystic or solid mass. SPLEEN: Unremarkable. Normal size without focal cystic or solid mass. ADRENALS: Unremarkable. No nodules. KIDNEYS AND URETERS: Unremarkable. Normal renal size and position. No hydronephrosis. STOMACH AND BOWEL: Moderate amount of fecal material throughout the colon. No stomach or bowel distention. No focal inflammatory change. PELVIS: APPENDIX: Normal appendix. BLADDER: Unremarkable. REPRODUCTIVE: Unremarkable as visualized. No mass. ABDOMEN and PELVIS: INTRAPERITONEAL SPACE: Unremarkable. No ascites or other fluid collection. No free air. BONES/JOINTS: Unremarkable. No suspicious lytic or blastic abnormality. SOFT TISSUES: See above. VASCULATURE: Unremarkable. Abdominal aorta is non-dilated. LYMPH NODES: Unremarkable. No enlarged lymph nodes. CT/Abdomen/Pelvis W IV Cont ONLY IMPRESSION: 1. Mild pericholecystic and periportal edema. This may be due to rapid IV hydration. No radiopaque stone identified. 2. Constipation. Electronically Signed: Diego Tejada MD at 5:05 EST ,
[2023-06-30 04:40] LABS: Mucous, Urine 0 SEEN /hpf (<or=2+); Red Blood Cells-Urine 0 SEEN /hpf (0-5); White Blood Cells 0 SEEN /hpf (0-5)
[2023-06-30 04:41] LABS: Color, Urine Yellow (Yellow); Glucose, Dipstick Normal (Normal); Ketone-Dipstick 5 mg/dl (Negative); Leukocyte Esterase-Dipstick 25 /ul (Negative); Nitrite-Dipstick Negative (Negative); Occult Blood-Urine Negative /ul (Negative); Protein-Dipstick 30 mg/dl (Negative); Urine Clarity Clear (Clear); Urine Urobilinogen 4 mg/dl (Normal); Urine pH 6.5 (5.0 - 8.0)
[2023-06-30 05:04] LABS: Urine Bilirubin Dipstick 3 mg/dL (Negative)
[2023-06-30 05:05] LABS: Bacteria 1+ /hpf (None Seen); Squamous Epithelial Cells - UA 0-5 SEEN /hpf (5-10)
--- NOTE | 2023-06-30 05:33 | US_ITS ---
EXAM: US ABDOMEN LIMITED, RIGHT UPPER QUADRANT CLINICAL INDICATION: RUQ pain TECHNIQUE: Real-time ultrasound of the right upper quadrant with image documentation. COMPARISON: No relevant prior studies available. FINDINGS: LIVER: Hepatopedal flow in the main portal vein. There is normal echotexture. No intrahepatic biliary ductal dilation. GALLBLADDER: Cholelithiasis and sludge within the gallbladder with an 8 mm stone at the gallbladder neck. No gallbladder wall thickening is demonstrated. No pericholecystic fluid. Negative sonographic Hernandez''s sign. COMMON BILE DUCT: Common bile duct is mildly enlarged at 8.3 mm. PANCREAS: Unremarkable as visualized. No focal abnormality is demonstrated in the pancreas. No pancreatic ductal dilatation. RIGHT KIDNEY: Unremarkable. There is no hydronephrosis. No shadowing calculus. No focal lesion or perinephric collection is demonstrated. US/Gallbladder IMPRESSION: 1. Cholelithiasis and sludge within the gallbladder with an 8 mm stone at the gallbladder neck. 2. Common bile duct is mildly enlarged at 8.3 mm. No choledocholithiasis identified. Electronically Signed: Diego Tejada MD at 7:34 EST ,
--- NOTE | 2023-06-30 06:40 | EX.ED.DYSGE1 ---
HPI <Dr. Cr Hudson DO - Last Filed: 07/02/23 22:39> History of Present Illness Chief Complaint: Abd Pain Informant: patient and parent Narrative Narrative: Patient is a 18-year-old female with past medical history of anxiety. She is approximately 8 weeks after a full-term vaginal delivery. She states she has been doing well but that this evening/morning she developed pain in her right upper quadrant/midepigastric region that was sharp and stabbing in nature and led to bouts of nausea and vomiting. She states the pain has subsided slightly from its onset but has been persistent for multiple hours and secondary to this she comes in for evaluation PFS <Dr. 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 current occupational exposures/hazards: No pets and animals: Yes (boyfriend changing litter box) pets and animals: cat(s) and dog(s) history of recent travel: No sexually active: Yes Smoking Status: Never smoker second hand exposure: Yes alcohol intake: never substance use type: does not use well-balanced diet: rarely or never caffeine: Yes Type: carbonated beverages Number of servings: 2 and coffee Number of servings: 2 eating out: 1-3 times/week what type of physical activity do you participate in: walking frequency: 3-4 times per week seatbelt use: sometimes do you feel safe at home: Yes ROS <Dr. Cr Hudson DO - Last Filed: 07/02/23 22:39> ROS ED Constitutional Constitutional ED: Denies chills or fever(s) Eyes Eyes: Denies change in vision ENT ENT ED: Denies rhinorrhea or sore throat Cardiovascular Cardiovascular: Denies chest pain Respiratory/Chest Respiratory/Chest: Denies cough or dyspnea Gastrointestinal Gastrointestinal: Reports abdominal pain, nausea and vomiting; Denies diarrhea Genitourinary Genitourinary ED: Denies dysuria or hematuria Musculoskeletal Musculoskeletal: Denies back pain or myalgias Integumentary Denies rash Neurologic Neurologic: Denies headache(s) Hematologic/Lymphatic Hematologic/Lymphatic: Denies easy bleeding or easy bruising EXAM <Dr. Cr Hudson, DO - Last Filed: 07/02/23 22:39> Physical Exam Const Vital Signs: 06/30/23 02:44 06/30/23 06:14 Temperature 97.9 F 97.7 F L Temperature Source Temporal Oral Pulse Rate 76 78 Respiratory Rate 15 16 Blood Pressure 111/82 H 121/78 H Blood Pressure Mean 91 92 Pulse Ox 99 98 Oxygen Delivery Method Room Air Room Air Positive well nourished and well developed General Appearance ED: well developed; Negative for pallor HEENT Reports moist mucous membranes HEENT Narrative: No oral lesions no airway edema or compromise No signs of infection noted in the posterior pharynx Eyes PERRL and EOMs intact bilaterally General Eye ED: Negative for scleral icterus Neck supple Resp normal respiratory effort and clear to auscultation bilaterally Cardio regular rate and regular rhythm Rate: other Other Details: Heart is regular rate and rhythm without murmurs rubs or gallop Radial and carotid pulses are equal and symmetric GI non-distended GI Narrative: Abdomen is soft and nondistended with normal active bowel sounds. There is mild pain with palpation in the midepigastric region with greatest amount of pain present in the right upper quadrant with voluntary guarding at this site and positive Hernandez sign. No pulsatile mass or fluid wave noted. No rigidity present Auscultation: normoactive bowel sounds Palpation: soft Extremity normal to inspection Extremity Narrative: No asymmetric edema no pitting edema negative Homans' sign bilaterally Neuro oriented x3, CN's II-XII intact bilaterally and no sensory deficits noted Sensorium / Orientation: alert Motor Exam: strength 5/5 throughout Psych mental status grossly normal Skin no rashes or lesions noted General Skin Exam: Negative for jaundice or pallor <Dr. Car Salamanca MD - Last Filed: 06/30/23 08:54> Physical Exam Const Vital Signs: 06/30/23 02:44 06/30/23 06:14 Temperature 97.9 F 97.7 F L Temperature Source Temporal Oral Pulse Rate 76 78 Respiratory Rate 15 16 Blood Pressure 111/82 H 121/78 H Blood Pressure Mean 91 92 Pulse Ox 99 98 Oxygen Delivery Method Room Air Room Air MDM <Dr. Cr Hudson DO - Last Filed: 07/02/23 22:39> [facility] Narrative Medical decision making narrative: Patient presented to the ER with stable vitals but had sudden onset of midepigastric to right upper quadrant pain leading to bouts of nausea and vomiting. Differential diagnosis is for biliary colic versus acute cholecystitis versus common bile duct stone versus pancreatitis versus gastroenteritis. Based on her pain being greatest in the right upper quadrant with positive Hernandez sign there is concern that this is gallbladder dysfunction and therefore basic labs were obtained. Labs show elevation to her liver enzymes concerning for gallbladder dysfunction. The patient's previous labs were reviewed and these were obtained in November 2021. At that time her total bilirubin was 0.2 her direct bilirubin was 0.1 AST was 27 ALT 42 and alkaline phosphatase 128. The values at this time are drastically elevated compared to this concerning for gallbladder dysfunction or potential biliary duct stone. A CT was then obtained with IV contrast showing pericholecystic and periportal edema without obvious stone sludge or signs of acute cholecystitis or biliary duct stone. The case was discussed with Dr. Oscar/general surgeon who recommends patient undergo an ultrasound at this time to further check for potential gallstones or biliary duct stone as a cause of her drastic liver enzymes and symptoms. At this time the gallbladder ultrasound and evaluation by general surgery still pending so the patient will be signed out to the day physician Dr. Salamanca. Most likely based on the patient's symptoms and drastic elevation to her liver enzymes she will require admission for further evaluation and treatment History & Record Review Discussion w/independent historian: Patient and Family Lab Data Attestation: I reviewed the patient's lab results. Labs: Laboratory Results - last 24 hr 06/30/23 06/30/23 03:30 04:30 WBC 6.4 RBC 5.10 Hgb 13.5 Hct 43.8 MCV 85.9 MCH 26.5 L MCHC 30.8 L RDW Std Deviation 43.7 RDW Coeff of Cristino 13.8 Plt Count 229 MPV 11.2 Immature Gran % (Auto) 0.300 Neut % (Auto) 82.9 H Lymph % (Auto) 8.6 L [place] % (Auto) 6.9 Eos % (Auto) 0.8 Baso % (Auto) 0.5 Absolute Neuts (auto) 5.3 Absolute Lymphs (auto) 0.55 L Nucleated RBC % 0 Differential Comment SCANNED Sodium 139 Potassium 3.7 Chloride 107 Carbon Dioxide 27.0 Anion Gap 5 BUN 11 Creatinine 0.85 Estim Creat Clear Calc 87.33 Est GFR (MDRD) Af Amer 110 Est GFR (MDRD) Non-Af 91 BUN/Creatinine Ratio 13.0 Glucose 151 H Calcium 9.7 Total Bilirubin 2.00 H Direct Bilirubin 1.49 H AST 636 H ALT 399 H Alkaline Phosphatase 407 H Total Protein 7.9 Albumin 4.2 Globulin 3.7 Lipase 65 Urine Color Yellow Urine Clarity Clear Urine pH 6.5 Ur Specific [place] 1.020 Urine Protein 30 H Urine Glucose (UA) Normal Urine Ketones 5 H Urine Occult Blood Negative Urine Nitrite Negative Urine Bilirubin 3 H Urine Urobilinogen 4 H Ur Leukocyte Esterase 25 H Urine RBC 0 SEEN Urine WBC 0 SEEN Ur Squamous Epith Cells 0-5 SEEN Urine Bacteria 1+ Urine Mucus 0 SEEN Radiography Diagnostic Testing: Clinical Impression(s) from Imaging Studies Abdomen/Pelvis CT 06/30/23 04:06 IMPRESSION: 1. Mild pericholecystic and periportal edema. This may be due to rapid IV hydration. No radiopaque stone identified. 2. Constipation. Electronically Signed: Diego Tejada MD at 5:05 EST , Gallbladder Ultrasound 06/30/23 05:33 IMPRESSION: 1. Cholelithiasis and sludge within the gallbladder with an 8 mm stone at the gallbladder neck. 2. Common bile duct is mildly enlarged at 8.3 mm. No choledocholithiasis identified. 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 Car Salamanca MD - Last Filed: 06/30/23 08:54> [facility] Lab Data Labs: Laboratory Results - last 24 hr 06/30/23 06/30/23 03:30 04:30 WBC 6.4 RBC 5.10 Hgb 13.5 Hct 43.8 MCV 85.9 MCH 26.5 L MCHC 30.8 L RDW Std Deviation 43.7 RDW Coeff of Cristino 13.8 Plt Count 229 MPV 11.2 Immature Gran % (Auto) 0.300 Neut % (Auto) 82.9 H Lymph % (Auto) 8.6 L [place] % (Auto) 6.9 Eos % (Auto) 0.8 Baso % (Auto) 0.5 Absolute Neuts (auto) 5.3 Absolute Lymphs (auto) 0.55 L Nucleated RBC % 0 Differential Comment SCANNED Sodium 139 Potassium 3.7 Chloride 107 Carbon Dioxide 27.0 Anion Gap 5 BUN 11 Creatinine 0.85 Estim Creat Clear Calc 87.33 Est GFR (MDRD) Af Amer 110 Est GFR (MDRD) Non-Af 91 BUN/Creatinine Ratio 13.0 Glucose 151 H Calcium 9.7 Total Bilirubin 2.00 H Direct Bilirubin 1.49 H AST 636 H ALT 399 H Alkaline Phosphatase 407 H Total Protein 7.9 Albumin 4.2 Globulin 3.7 Lipase 65 Urine Color Yellow Urine Clarity Clear Urine pH 6.5 Ur Specific [place] 1.020 Urine Protein 30 H Urine Glucose (UA) Normal Urine Ketones 5 H Urine Occult Blood Negative Urine Nitrite Negative Urine Bilirubin 3 H Urine Urobilinogen 4 H Ur Leukocyte Esterase 25 H Urine RBC 0 SEEN Urine WBC 0 SEEN Ur Squamous Epith Cells 0-5 SEEN Urine Bacteria 1+ Urine Mucus 0 SEEN Radiography Diagnostic Testing: Clinical Impression(s) from Imaging Studies Abdomen/Pelvis CT 06/30/23 04:06 IMPRESSION: 1. Mild pericholecystic and periportal edema. This may be due to rapid IV hydration. No radiopaque stone identified. 2. Constipation. Electronically Signed: Diego Tejada MD at 5:05 EST , Gallbladder Ultrasound 06/30/23 05:33 IMPRESSION: 1. Cholelithiasis and sludge within the gallbladder with an 8 mm stone at the gallbladder neck. 2. Common bile duct is mildly enlarged at 8.3 mm. No choledocholithiasis identified. Electronically Signed: Diego Tejada MD at 7:34 EST , Treatment and Re-Evaluation Comments:: Patient checked out to me for ultrasound results, I reviewed the images and the report which I agree with, showing stones, sludge, and a gallstone stuck in the neck of the gallbladder, which explains the symptoms she was reporting. No radiographic evidence of choledocholithiasis although the common bile duct is mildly enlarged 8.3 mm. Currently she is asymptomatic and doing well clinically. Discussed with Dr. Oscar, who will see her in the emergency department to admit her, recommend starting Zosyn which we will do, discussed with the patient and her significant other and they are comfortable with that. Discharge Plan Dx/Rx/DC Orders Clinical Impression: Acute calculous cholecystitis, Elevated liver enzymes Disposition Disposition: Acute Care Hospital [facility] Discharge Date/Time: 06/30/23 10:27
[2023-06-30] MEDS: Piperacil/Tazobactam 3.375 GM in 0.9% Normal Saline (50mL MB+) 50 ML IV ×3 (09:22→22:31)
--- NOTE | 2023-06-30 10:36 | PCM.HP.STD ---
HPI - General General Date of Admission: 06/30/23 Date of Service: 06/30/23 Chief Complaint: Acute onset abdominal pain with associated nausea and vomiting HPI Narrative LUCY ANDERSON, is a 18 F who presents to [facility] ER with complaints of acute onset upper abdominal pain and associated nausea and vomiting. She states she has experienced this pain to a milder degree ever since her son was born 8 weeks ago, but after this started at approximately 1600 yesterday it became persistent and associated with the vomiting- both of which were new from her prior presentations. She describes the pain as starting in the right upper quadrant and wrapping around to the back shortly after eating clam chowder yesterday. Presently, while at rest, she denies any particular discomfort. Patient's ER work-up is notable for CT imaging that showed periportal edema but no evidence of cholelithiasis. CBC demonstrated normal white blood cell count but there is evidence of neutrophilia in the differential. CMP shows cholestatic pattern to the elevation of patient's LFTs and hyperbilirubinemia with a total bilirubin of 2.0. Reflex ultrasound was requested by me and showed evidence of cholelithiasis with a 8 mm stone in the gallbladder neck as well as mild common bile duct dilatation to a diameter of 8.3. Notably, radiology does not identify any evidence of cholecystitis with gallbladder wall thickening. Patient has no significant past medical history apart from some anxiety and migraines. There is no past surgical history. 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 current occupational exposures/hazards: No pets and animals: Yes (boyfriend changing litter box) pets and animals: cat(s) and dog(s) history of recent travel: No sexually active: Yes Smoking Status: Never smoker second hand exposure: Yes alcohol intake: never substance use type: does not use well-balanced diet: rarely or never caffeine: Yes Type: carbonated beverages Number of servings: 2 and coffee Number of servings: 2 eating out: 1-3 times/week what type of physical activity do you participate in: walking frequency: 3-4 times per week seatbelt use: sometimes do you feel safe at home: Yes ROS Constitutional Constitutional: Denies chills or fever(s) Gastrointestinal Gastrointestinal: Reports abdominal pain, nausea and vomiting Vital Signs Vital Signs Vital Signs: 06/30/23 02:44 06/30/23 06:14 06/30/23 08:00 Temperature 97.9 F 97.7 F L Temperature Source Temporal Oral Pulse Rate 76 78 Respiratory Rate 15 16 18 Blood Pressure 111/82 H 121/78 H Blood Pressure Mean 91 92 Pulse Ox 99 98 Oxygen Delivery Method Room Air Room Air 06/30/23 10:00 Temperature Temperature Source Pulse Rate Respiratory Rate 18 Blood Pressure Blood Pressure Mean Pulse Ox Oxygen Delivery Method Weight Weight: 188 lb 7.924 oz Body Mass Index (BMI) 33.3 Physical Exam Const alert, oriented x3, no apparent distress and well nourished General Appearance: cooperative Resp normal respiratory effort GI GI Narrative: Laxity of abdominal wall with some striae consistent with recent weight loss from . Patient's abdomen is nondistended. There is tenderness present in the right upper quadrant and epigastrium. Patient does have a positive Hernandez sign. Results Lab / Micro Data 06/30/23 03:30 06/30/23 03:30 Labs: Laboratory Results - last 24 hr 06/30/23 03:30: WBC 6.4, RBC 5.10, Hgb 13.5, Hct 43.8, MCV 85.9, MCH 26.5 L, MCHC 30.8 L, RDW Std Deviation 43.7, RDW Coeff of Cristino 13.8, Plt Count 229, MPV 11.2, Immature Gran % (Auto) 0.300, Neut % (Auto) 82.9 H, Lymph % (Auto) 8.6 L, [place] % (Auto) 6.9, Eos % (Auto) 0.8, Baso % (Auto) 0.5, Absolute Neuts (auto) 5.3, Absolute Lymphs (auto) 0.55 L, Nucleated RBC % 0, Differential Comment SCANNED, Sodium 139, Potassium 3.7, Chloride 107, Carbon Dioxide 27.0, Anion Gap 5, BUN 11, Creatinine 0.85, Estim Creat Clear Calc 87.33, Est GFR (MDRD) Af Amer 110, Est GFR (MDRD) Non-Af 91, BUN/Creatinine Ratio 13.0, Glucose 151 H, Calcium 9.7, Total Bilirubin 2.00 H, Direct Bilirubin 1.49 H, AST 636 H, ALT 399 H, Alkaline Phosphatase 407 H, Total Protein 7.9, Albumin 4.2, Globulin 3.7, Lipase 65 06/30/23 04:30: Urine Color Yellow, Urine Clarity Clear, Urine pH 6.5, Ur Specific [place] 1.020, Urine Protein 30 H, Urine Glucose (UA) Normal, Urine Ketones 5 H, Urine Occult Blood Negative, Urine Nitrite Negative, Urine Bilirubin 3 H, Urine Urobilinogen 4 H, Ur Leukocyte Esterase 25 H, Urine RBC 0 SEEN, Urine WBC 0 SEEN, Ur Squamous Epith Cells 0-5 SEEN, Urine Bacteria 1+, Urine Mucus 0 SEEN Imagaing Radiology Impression Abdomen/Pelvis CT 06/30/23 04:06 IMPRESSION: 1. Mild pericholecystic and periportal edema. This may be due to rapid IV hydration. No radiopaque stone identified. 2. Constipation. Electronically Signed: Diego Tejada MD at 5:05 EST , Gallbladder Ultrasound 06/30/23 05:33 IMPRESSION: 1. Cholelithiasis and sludge within the gallbladder with an 8 mm stone at the gallbladder neck. 2. Common bile duct is mildly enlarged at 8.3 mm. No choledocholithiasis identified. Electronically Signed: Diego Tejada MD at 7:34 EST , Assessment & Plan Assessment/Plan (1) Choledocholithiasis with acute cholecystitis: PLAN: This is a 18-year-old, otherwise healthy but recently , female who presents with acute onset right upper quadrant abdominal discomfort and associated nausea and vomiting. Given her ER work-up her presentation is highly suggestive for choledocholithiasis with associated early cholecystitis. More specifically she has transaminitis with hyperbilirubinemia and a cholestatic pattern, dilatation of her common bile duct and cholelithiasis showing on ultrasound. With exam she has a positive Hernandez sign. Taken together, I have recommended that we proceed with admission, IV antibiotics and trending her comprehensive metabolic panel. If it downtrends further tomorrow, will plan for cholecystectomy with intraoperative cholangiography. If, however, we observe an increase in her LFTs there may be an indication to involve gastroenterology in consultation prior to proceeding to surgery. Given that no operation is planned for today will go ahead with a clear liquid diet. Patient has informed me that she is breast-feeding her and wishes to return to this following her hospital stay. Charges/Coding Visit Charges Inpatient E&M: 46416 Init Hosp L2
[2023-06-30] MEDS: 0.9% Normal Saline (1000mL) 1,000 ML 125 ML IV ×2 (11:27→22:32)
[2023-06-30] MEDS: Acetaminophen 500 MG Tablet PO (18:24)
[2023-06-30 21:54] LABS: Internal QC Validated? YES +Cl - CLEAR BKGD; Pregnancy, Urine Negative Negative
[2023-07-01] VITALS (10 sets, daily range): BP systolic 113–130; BP diastolic 51–83; PULSE 50–109; RESP 14–16; TEMP 36.6–37.2; O2SAT 97–100; BMI 33.8
[2023-07-01 06:14] LABS: Absolute Lymphocyte Count 1.93 X10^3/uL (0.83-4.51); Absolute Neutrophil Count 1.9 X10^3/uL (2.0-7.7); Basophil# 0.02 X10^3/uL; Basophil% 0.4 % (0-1); Eosinophil# 0.18 X10^3/uL; Hemoglobin 11.5 g/dL (12.0-15.0); Lymphocyte # 1.93 X10^3/ul (0.83-4.51); Lymphocyte % 42.8 % (19-41); Mean Corp Hgb Conc 30.3 g/dL (32-36); Mean Corpuscular Hgb 26.7 pg (27.0-32.0); Mean Corpuscular Volume 88.2 fL (81-99); Mean Platelet Vol. 11.5 fl (6.2-12.0); Monocyte% 11.1 % (0-10); NRBC Flagged by Analyzer 0 % (0-5); Neutrophil # 1.87 X10^3/uL (2.7-7.7); Neutrophil % 41.5 % (47-70); Platelet Count 178 K/mm3 (150-450); RBC Distribution Width SD 45.5 fl (35.1-43.9); Red Blood Count 4.31 M/mm3 (4.2-5.4); White Blood Count 4.5 K/mm3 (4.4-11.0)
[2023-07-01] MEDS: Piperacil/Tazobactam 3.375 GM in 0.9% Normal Saline (50mL MB+) 50 ML IV ×2 (06:15→13:45)
[2023-07-01 06:53] LABS: ALB/GLOB Ratio 1.3 RATIO (0.9-2.4); AST(SGOT) 188 U/L (15-37); Alanine Aminotransfer ALT/SGPT 361 U/L (13-56); Albumin, Serum 3.7 g/dL (3.2-5.0); Alkaline Phosphatase 308 U/L (45-117); Anion Gap 6 (5-15); BUN 10 mg/dL (7-18); BUN/Creat Ratio 11.9 RATIO (10-20); Calcium,Total 8.5 mg/dL (8.5-10.1); Chloride 109 mmol/L (98-107); Creatinine, Serum 0.84 mg/dL (0.55-1.02); EST Glomerular Filtration Rate 92 mL/min (>60); Est Glom Filt Rate - Afr Amer 111 mL/min (>60); Estimated Creatinine Clearance 88.37 ml/min; Globulin 2.8 g/dL (2.2-4.2); Glucose 71 mg/dL (74-106); Lipase 17 U/L (13-75); Magnesium 2.1 mg/dL (1.6-2.6); Phosphorus 4.3 mg/dL (2.5-4.9); Potassium 3.8 mmol/L (3.5-5.1); Protein, Total 6.5 g/dL (6.4-8.2); Sodium Level 141 mmol/L (136-145)
--- NOTE | 2023-07-01 09:05 | PCM.PN.SRG ---
Subjective Subjective Seen and examined during AM rounds. She is found sitting up in bed but reports that she is feeling much better today. She does not have any significant abdominal discomfort. Objective Data Objective Data Vital Signs: Vital Signs Temp Pulse Resp BP Pulse Ox O2 Del Method 98.9 F 57 L 14 118/75 99 Room Air 07/01/23 08:16 07/01/23 08:16 07/01/23 08:16 07/01/23 08:16 07/01/23 08:16 07/01/23 08:21 Oxygen Delivery Method Room Air Weight: 190 lb 14.725 oz Body Mass Index (BMI) 33.8 Intake & Output: Intake and Output for Last 24 Hours 06/29/23 06/30/23 07/01/23 23:59 23:59 23:59 Intake Total 2460 / 2460 1014.58 / 1014.58 Balance 2460 / 2460 1014.58 / 1014.58 Lab / Micro Data 07/01/23 05:30 07/01/23 05:30 Labs: Laboratory Results - last 24 hr 06/30/23 21:25: Urine Test Negative 07/01/23 05:30: WBC 4.5, RBC 4.31, Hgb 11.5 L, Hct 38.0, MCV 88.2, MCH 26.7 L, MCHC 30.3 L, RDW Std Deviation 45.5 H, RDW Coeff of Cristino 14.0, Plt Count 178, MPV 11.5, Immature Gran % (Auto) 0.200, Neut % (Auto) 41.5 L, Lymph % (Auto) 42.8 H, [place] % (Auto) 11.1 H, Eos % (Auto) 4.0, Baso % (Auto) 0.4, Absolute Neuts (auto) 1.9 L, Absolute Lymphs (auto) 1.93, Nucleated RBC % 0, Sodium 141, Potassium 3.8, Chloride 109 H, Carbon Dioxide 26.0, Anion Gap 6, BUN 10, Creatinine 0.84, Estim Creat Clear Calc 88.37, Est GFR (MDRD) Af Amer 111, Est GFR (MDRD) Non-Af 92, BUN/Creatinine Ratio 11.9, Glucose 71 L, Calcium 8.5, Phosphorus 4.3, Magnesium 2.1, Total Bilirubin 0.60, AST 188 H, ALT 361 H, Alkaline Phosphatase 308 H, Total Protein 6.5, Albumin 3.7, Globulin 2.8, Albumin/Globulin Ratio 1.3, Lipase 17 Physical Exam Const oriented x3 and no apparent distress Resp normal respiratory effort GI GI Narrative: Persistent epigastric and right upper quadrant tenderness with exam. Positive Hernandez sign persists Assessment & Plan Assessment/Plan (1) Choledocholithiasis with acute cholecystitis: PLAN: This is a 18-year-old female hospital day 2 for admission for probable choledocholithiasis with acute cholecystitis. Her transaminitis and hyperbilirubinemia are responding as would be expected with spontaneous resolution of her choledocholithiasis and her labs are downtrending. However, her exam still suggests cholecystitis with positive Hernandez sign. I have reiterated our plans to proceed with cholecystectomy and intraoperative cholangiogram later today. Patient to remain n.p.o. with empiric antibiotics until that time. All questions were answered from both patient and her family. As long as patient is not confirmed to have persistent choledocholithiasis or there are any other unexpected findings in the operating room, she could be eligible for discharge postoperatively. She and her family were made aware of this possibility and are very interested in discharge given that the separation from her has been difficult. Charges/Coding Visit Charges Inpatient E&M: 19042 Subs Hosp L2
[2023-07-01] MEDS: Lactated Ringers 1,000 ML 15 ML IV (15:00)
--- NOTE | 2023-07-01 15:00 | RAD_ITS ---
CLINICAL HISTORY: Female, 18 years old. Cholecystectomy PROCEDURE: CHOLANGIOGRAM - intraoperative CONSENT: Informed consent obtained SEDATION: General FLUOROSCOPY TIME (if supplied): (:31) seconds. 2 separate cine loops were obtained, one of 135 images, the other 52 Placement of the catheter and the procedure were performed by: Dr. Oscar Fluoroscopy was provided by Kathleen Serrano, who was present in the room time of the procedure. TECHNIQUE: (All elements of maximal sterile barrier technique followed, including US elements as applicable) After the gallbladder was removed. The cystic duct was cannulized, and contrast injected into the cystic duct. There is normal filling of the cystic duct, common bile duct, and there is free flow of contrast into the duodenum. There is no evidence of extravasation of contrast outside the biliary tree to suspect a bile leak. RAD/Cholangiogram/ O R,Initial IMPRESSION: Normal intraoperative cholangiogram Electronically Signed: Breezy Stauffer MD at 10:07 EST ,
[2023-07-01] MEDS: Bupivacaine 0.25% 30 ML Vial (15:40)
--- NOTE | 2023-07-01 15:45 | OP.PCM_ITS ---
Report of Operation Date of Procedure: 07/01/23 Pre-Operative Diagnosis: Choledocholithiasis with cholecystitis Post-Operative Diagnosis: Dilated common bile duct with acute cholecystitis Surgery/Procedure Performed:: Laparoscopic cholecystectomy with intraoperative cholangiogram Description of Surgical Findings:: ? Mild acute cholecystitis ? Mildly dilated common bile duct Surgeon: Diego Oscar [employer] consultant: Rani Calles Type of Anesthesia: General/Supplemental Anesthesiologist: Paul Mckeon Estimated Blood Loss (mL): 20 Description of Procedure: After proper identification in the preoperative holding area the patient was brought to the operating room where she was positioned supine on the operating room table. Preoperatively SCDs were placed. Antibiotics had been administered on the medical surgical [facility] floor just prior to patient's arrival. General anesthesia was then induced. Patient's abdomen was prepped and draped in usual sterile fashion. A formal timeout was conducted to confirm both patient and the procedure. Procedure was begun with a supraumbilical incision which was extended deeply down to the level of the fascia. The fascia was elevated and incised, as well as the peritoneum. A finger sweep was performed to ensure there were no underlying adhesions and a 12 mm balloon trocar was inserted. Pneumoperitoneum was established at 15 mmHg. 3 additional trocars were placed in the epigastrium and in the right upper quadrant (3 x 5 mm). Inspection of the peritoneum revealed no inadvertent injury to the viscera below. The gallbladder was visualized with mild inflammation. The gallbladder fundus was then grasped and elevated cephalad. Then, using careful dissection the peritoneum was opened and the structures of the hepatocystic triangle were delineated. Once the critical view of safety was obtained, the cystic duct was singly clipped and partially divided with a ductotomy. The proximal duct was milked of any debris until there was backflow of bile. A cholangiocatheter was fed into the proximal segment of the cystic duct and clipped into place. Using an Ort[place] clamp, a cholangiocatheter was fed into the proximal segment of the cystic duct and clamped into place. Under fluoroscopy a cholangiogram was then obtained showing a normal length cystic duct flowing into a common bile duct with unobstructed antegrade flow of contrast into the duodenum. There was also retrograde flow through the common hepatic duct into the right and left hepatic ducts. Satisfied with this result, the cholangiocatheter was withdrawn and the proximal cystic duct was sealed with clips and the cystic duct was completely transected. The same process was used for the cystic artery. The gallbladder was then removed from the gallbladder fossa with the use of electrocautery. It is of note that in the last one third of the gallbladder is attachment to the liver there was a aberrant secondary cystic artery feeding the fundal portion of the gallbladder required clipping and division to remove the gallbladder fully. S elective electrocautery was used to obtain hemostasis in the gallbladder fossa. The gallbladder was placed in an Endo Catch bag and removed from the peritoneum. Morison's pouch was irrigated and the effluent was suctioned free of the peritoneum. Hemostasis was again confirmed. Pneumoperitoneum was evacuated and the fascia of the 12 mm port sites was closed with #1Vicryl in a [id number] fashion. A total of 30 mL of local anesthetic was injected at the port sites for postoperative pain control. The skin of each port site was then closed in subcuticular fashion using 4-0 Monocryl. Steri-Strips and bandages were applied as dressings. Patient tolerated the procedure well without any apparent complications. On emergence from their anesthetic the patient was taken to PACU for ongoing recovery. Complications None Admit VTE Documentation VTE Mechan Device Prophylaxis: SCD's Procedures Digestive 40xxx-49xxx: [id number] Laparo cholecystectomy/graph
--- NOTE | 2023-07-01 16:29 | PCM.DC ---
Discharge Instructions Diet Discharge Diet: No restrictions Activity Discharge Activity: May Not Drive (No driving while using narcotic pain medication) and May Shower (Postoperative day 1) May shower in (days): 2 Ice area for (Minutes): 20 Lifting Restrictions: No lifting greater than 15 pounds for 2 weeks after surgery Dressing / Incision Call your doctor if your incision/area has: Continuous Slow Oozing, Increased Pain/ Swelling, Increased Redness, Foul Smelling Discharge and Swelling at the incision site Call your doctor if you observe: Fever of 101 or Higher Remove Dressing in: 2 days (Please leave Steri-Strips intact until they fall off spontaneously or are taken off at your follow-up visit) Cleanse incision/area with: Soap & Water Follow Up Care Please Follow Up With: Diego Oscar MD When: 7-10days postop Test Results: Test results from this visit will be discussed in further detail at your follow-up appointment, if applicable. Discharge Plan Admission Admit Date/Time: 06/30/23 10:41 Primary Reason for Your Visit: Cholecystitis Attending Provider: Diego Oscar Primary Care Provider: Marine Mart NP Discharge Orders/Prescriptions Prescriptions: New oxycodone 5 mg Tablet 5 mg PO Q6H PRN PRN (Reason: Pain Score 6-10) 3 Days Qty: 10 0RF Referrals / Follow Up: Marine Mart NP, [employer] [Primary Care Provider] - Disposition Disposition (needs filled in before D/C Order can be placed): Home, Self Care
--- NOTE | 2023-07-01 16:32 | DS.PCM_ITS ---
Providers Date of Admission: 06/30/23 Primary Care Physician: Marine Mart, BAY-C Reason For Visit: CHOLECYSTITIS WITH CHOLEDOCHOLITHIASIS Diagnosis Discharge Diagnosis (1) Choledocholithiasis with acute cholecystitis: Status: Acute Code(s): K80.42 - Calculus of bile duct with acute cholecystitis without obstruction Plan: This is a 18-year-old female hospital day 2 for admission for probable choledocholithiasis with acute cholecystitis. Her transaminitis and hyperbilirubinemia are responding as would be expected with spontaneous resolution of her choledocholithiasis and her labs are downtrending. However, her exam still suggests cholecystitis with positive Hernandez sign. I have reiterated our plans to proceed with cholecystectomy and intraoperative cholangiogram later today. Patient to remain n.p.o. with empiric antibiotics until that time. All questions were answered from both patient and her family. As long as patient is not confirmed to have persistent choledocholithiasis or there are any other unexpected findings in the operating room, she could be eligible for discharge postoperatively. She and her family were made aware of this possibility and are very interested in discharge given that the separation from her has been difficult. Medications at Discharge Home Medications oxycodone 5 mg tablet 5 mg PO Q6H PRN PRN Pain Score 6-10 3 days #10 tabs 07/01/23 Hospital Course Operations cholecystecomy (With intraoperative cholangiogram 07/01/2023) Procedures None Summary of Care Provided Hospital Course: Patient 18-year-old female who presented on 06/30/2023 with complaints of acute onset abdominal pain with associated nausea and vomiting. She was found to have markedly elevated LFTs and hyperbilirubinemia. CT imaging demonstrated periportal edema as well as edema about the gallbladder. Reflex ultrasound confirmed the presence of cholelithiasis and a mildly dilated common bile duct. When she was also found to have a positive Hernandez sign on exam she was deemed to have choledocholithiasis with cholecystitis. Fortunately, her comprehensive metabolic panel values down trended spontaneously?suggesting spontaneous passage of a stone and she was taken hospital day 2 for laparoscopic cholecystectomy with intraoperative cholangiogram. Procedure was completed in uncomplicated fashion cholangiogram did not show any evidence of a distal filling defect. Postoperatively she tolerated a clear liquid diet and was thus advanced to a regular diet. After resting on the floor she determined that she felt well enough for discharge to home and pain medication had been already ordered to her preferred pharmacy. We reiterated the expectation for outpatient follow-up and discharged home was granted. Weight / BMI Weight Weight: 190 lb 14.725 oz Body Mass Index (BMI) 33.8 ABG / Lab / Microbiology Data 07/01/23 05:30 07/01/23 05:30 Laboratory: Laboratory Results - last 24 hr 06/30/23 21:25: Urine Test Negative 07/01/23 05:30: WBC 4.5, RBC 4.31, Hgb 11.5 L, Hct 38.0, MCV 88.2, MCH 26.7 L, MCHC 30.3 L, RDW Std Deviation 45.5 H, RDW Coeff of Cristino 14.0, Plt Count 178, MPV 11.5, Immature Gran % (Auto) 0.200, Neut % (Auto) 41.5 L, Lymph % (Auto) 42.8 H, [place] % (Auto) 11.1 H, Eos % (Auto) 4.0, Baso % (Auto) 0.4, Absolute Neuts (auto) 1.9 L, Absolute Lymphs (auto) 1.93, Nucleated RBC % 0, Sodium 141, Potassium 3.8, Chloride 109 H, Carbon Dioxide 26.0, Anion Gap 6, BUN 10, Creatinine 0.84, Estim Creat Clear Calc 88.37, Est GFR (MDRD) Af Amer 111, Est GFR (MDRD) Non-Af 92, BUN/Creatinine Ratio 11.9, Glucose 71 L, Calcium 8.5, Phosphorus 4.3, Magnesium 2.1, Total Bilirubin 0.60, AST 188 H, ALT 361 H, Alkaline Phosphatase 308 H, Total Protein 6.5, Albumin 3.7, Globulin 2.8, Albumin/Globulin Ratio 1.3, Lipase 17 D/C Instructions Discharge Diet: No restrictions May shower in (days): 2 Ice area for (Minutes): 20 Call your doctor if your incision/area has: Continuous Slow Oozing, Increased Pain/ Swelling, Increased Redness, Foul Smelling Discharge and Swelling at the incision site Call your doctor if you observe: Fever of 101 or Higher Cleanse incision/area with: Soap & Water Please Follow Up With: Diego Oscar MD When: 7-10days postop Meaningful Use Info Meaningful Use Diagnoses (Choose all that apply): None applicable Discharge Plan Admission Admit Date/Time: 06/30/23 10:41 Primary Reason for Your Visit: Cholecystitis Attending Provider: Diego Oscar Primary Care Provider: Marine Mart NP Discharge Orders/Prescriptions Prescriptions: New oxycodone 5 mg Tablet 5 mg PO Q6H PRN PRN (Reason: Pain Score 6-10) 3 Days Qty: 10 0RF Referrals / Follow Up: Marine Mart NP, [employer] [Primary Care Provider] - Disposition Disposition (needs filled in before D/C Order can be placed): Home, Self Care Charges/Coding Visit Charges Inpatient E&M: 35675 Disch Hosp
[2023-07-01] MEDS: Acetaminophen 500 MG Tablet PO (18:13)
--- NOTE | 2023-07-02 13:45 | GALL_PTH ---
PATIENT: LUCY ANDERSON LOC: [facility]3 U#:[id number] AGE/SX: 18/F ROOM: MS308 RE06/30/[address]: Dr. Diego Oscar MD : 2005 BED: 1 DIS: 07/01/2023 SPEC #: [id number] RECD: 07/03/23 08:45 STATUS: LISA CONLEYJerry #: [id number] KESHIA: 07/02/23 13:[address]: Diego Oscar DEPT: SURGICAL PATHOLOGY RECD BY: Lana Martin ENTERED: 07/03/23 08:45 SP TYPE: KASIE KING DR: Marine Mart, B[facility] Tissues: Gallbladder, NOS Procedures: Surgery Specimen Level III HEADER OPERATION: Laparoscopic cholecystectomy with IOC PRE-OP DIAGNOSIS: Choledocholithiasis with acute cholecystitis TISSUE SUBMITTED: Gallbladder MICROSCOPIC DIAGNOSIS Gallbladder, cholecystectomy: Cholesterolosis, chronic cholecystitis and cholelithiasis. AM:katerina 07/04/2023 MICROSCOPIC DESCRIPTION Slides are reviewed. GROSS DESCRIPTION Received is one container labeled with the patient's name and designated gallbladder. The specimen consists of a gallbladder measuring 8.5 x 3.3 x 3.2 cm. The external surface is smooth and glistening. Focally, it is granular, hemorrhagic and contains cautery artifact. The lumen of the gallbladder contains yellow-green mucoid bile and a single chalky, yellow calculus measuring 0.7 cm and impacted in the cystic duct. The mucosa is bile-stained and without any mass lesions. The gallbladder wall averages 0.2 cm in thickness and is free of mass lesions. Cloth Folder Machine sections of the gallbladder and the cystic duct at margin of resection are submitted in one cassette. / AM:katerina 07/03/2023 TC:3 CPT: 44805
== END 2023-07-01 20:02 | disposition home or self-care (01) | DRG 419 ==
LOC: ED 02:58 → MS3 11:23
PROVIDERS: Emergency Medicine; Admitting Provider Surgery; Emergency Provider Emergency Medicine; PCP Nurse Practitioner Pediatrics; Visit Provider Surgery
PROC: (CPT 47610; principal; 2023-07-01 13:25)
DX: K80.66 Calculus of gallbladder and bile duct with acute and chronic cholecystitis without obstruction (principal)
CPT/HCPCS: 47563; 00790; 36415; 74177; 74300; 76000; 76705; 80048; 80053; 80076; 81001; 81025; 83690; 83735; 84100; 85025; 88304; 94668; 96361; 96365; 96366; 96375; 99221; 99284; J7030; J7120; Q9967; A4216; G0378; J2405

== ENCOUNTER → 2023-12-12 | Outpatient (CLI) | payer OTHER, SELFPAY ==
[2023-12-12 15:16] LABS: Absolute Neutrophil Count 2.9 X10^3/uL (2.0-7.7); Basophil# 0.01 X10^3/uL; Basophil% 0.2 % (0-1); Eosinophil# 0.15 X10^3/uL; Eosinophils% 2.7 % (0-5); Hemoglobin 13.3 g/dL (12.0-15.0); Lymphocyte % 36.5 % (19-41); Mean Corp Hgb Conc 31.7 g/dL (32-36); Mean Corpuscular Hgb 27.5 pg (27.0-32.0); Mean Corpuscular Volume 86.8 fL (81-99); Mean Platelet Vol. 11.4 fl (6.2-12.0); Monocyte# 0.44 X10^3/uL; NRBC Flagged by Analyzer 0 % (0-5); Neutrophil # 2.88 X10^3/uL (2.7-7.7); Neutrophil % 52.6 % (47-70); Platelet Count 204 K/mm3 (150-450); RBC Distribution Width CV 13.7 % (11.6-14.6); RBC Distribution Width SD 43.8 fl (35.1-43.9); Red Blood Count 4.84 M/mm3 (4.2-5.4); White Blood Count 5.5 K/mm3 (4.4-11.0)
[2023-12-12 16:00] LABS: Ferritin 25 ng/mL (8-252)
[2023-12-14 06:09] LABS: Transferrin 289 mg/dL (192-364)
== END | disposition home or self-care (01) ==
LOC: MFPLAB 13:52
PROVIDERS: PCP Nurse Practitioner Pediatrics; Visit Provider Family Medicine
DX: D64.9 Anemia, unspecified (principal)
CPT/HCPCS: 36415; 82728; 84466; 85025

== ENCOUNTER → 2024-05-15 | Outpatient (CLI) | payer OTHER, SELFPAY | END | disposition home or self-care (01) | PROVIDERS: PCP Nurse Practitioner Pediatrics; Referring Provider Advanced Practice Midwife; Visit Provider Advanced Practice Midwife | DX: B37.9 Candidiasis, unspecified (principal) | CPT/HCPCS: 87070; 87205 ==

== ENCOUNTER → 2024-06-10 | Outpatient (CLI) | payer OTHER, SELFPAY ==
[2024-06-10 18:48] LABS: Absolute Lymphocyte Count 2.23 X10^3/uL (0.83-4.51); Absolute Neutrophil Count 4.5 X10^3/uL (2.0-7.7); Basophil# 0.03 X10^3/uL; Basophil% 0.4 % (0-1); Eosinophil# 0.14 X10^3/uL; Eosinophils% 1.9 % (0-5); Hematocrit 42.5 % (37-47); Hemoglobin 13.5 g/dL (12.0-15.0); Lymphocyte # 2.23 X10^3/ul (0.83-4.51); Lymphocyte % 30.1 % (19-41); Mean Corp Hgb Conc 31.8 g/dL (32-36); Mean Corpuscular Hgb 28.3 pg (27.0-32.0); Mean Corpuscular Volume 89.1 fL (81-99); Mean Platelet Vol. 11.4 fl (6.2-12.0); Monocyte# 0.47 X10^3/uL; Monocyte% 6.3 % (0-10); NRBC Flagged by Analyzer 0 % (0-5); Neutrophil # 4.54 X10^3/uL (2.7-7.7); Neutrophil % 61.2 % (47-70); Platelet Count 252 K/mm3 (150-450); RBC Distribution Width CV 12.8 % (11.6-14.6); RBC Distribution Width SD 41.9 fl (35.1-43.9); Red Blood Count 4.77 M/mm3 (4.2-5.4); White Blood Count 7.4 K/mm3 (4.4-11.0)
[2024-06-10 19:10] LABS: ALB/GLOB Ratio 1.2 RATIO (0.9-2.4); AST(SGOT) 13 U/L (15-37); Alanine Aminotransfer ALT/SGPT 27 U/L (13-56); Alkaline Phosphatase 147 U/L (45-117); Anion Gap 8 (5-15); BUN 14 mg/dL (7-18); BUN/Creat Ratio 18.2 RATIO (10-20); Chloride 108 mmol/L (98-107); Creatinine, Serum 0.77 mg/dL (0.55-1.02); EST Glomerular Filtration Rate 100 mL/min (>60); Est Glom Filt Rate - Afr Amer 121 mL/min (>60); Globulin 3.3 g/dL (2.2-4.2); Glucose 96 mg/dL (74-106); Potassium 3.5 mmol/L (3.5-5.1); Protein, Total 7.3 g/dL (6.4-8.2); Sodium Level 140 mmol/L (136-145); T4 Free Direct 0.89 ng/dL (0.76-1.46)
[2024-06-10 20:17] LABS: Vitamin D,25 Hydroxy 13.9 ng/mL
== END | disposition home or self-care (01) ==
LOC: MFPLAB 14:55
PROVIDERS: PCP Family Medicine; Referring Provider Family Medicine; Visit Provider Family Medicine
DX: R53.83 Other fatigue (principal); D64.9 Anemia, unspecified
CPT/HCPCS: 36415; 80053; 82306; 84439; 84443; 84481; 85025

== ENCOUNTER → 2024-06-16 | Outpatient (CLI) | payer OTHER, SELFPAY ==
[2024-06-18 22:07] LABS: Chlamydia By Nucleic Acid AMP Negative (Negative); Gonococcus By Nucleic Acid AMP Negative (Negative)
[2024-06-24 13:07] LABS: HPV Reflexed? NOT INDICATED
== END | disposition home or self-care (01) ==
LOC: LABSPEC 15:45
PROVIDERS: PCP Family Medicine; Referring Provider Nurse Practitioner Women's Health; Visit Provider Nurse Practitioner Women's Health
DX: Z12.4 Encounter for screening for malignant neoplasm of cervix (principal); Z11.3 Encounter for screening for infections with a predominantly sexual mode of transmission
CPT/HCPCS: 87491; 87591; 88175; G0145

== ENCOUNTER 2024-06-26 17:46 | Emergency (ER) | payer OTHER, SELFPAY ==
[2024-06-26 17:47] VITALS: BP 126/80; PULSE 93; RESP 18; TEMP 36.2; O2SAT 100; BMI 34.5
[2024-06-26] MEDS: Ketorolac 15 MG/ML Vial IV (18:34)
[2024-06-26] MEDS: DiphenhydrAMINE 50 MG/ML Syringe 25 MG IV (18:34)
[2024-06-26] MEDS: Metoclopramide 10 MG/2 ML Vial IV (18:34)
--- NOTE | 2024-06-26 19:49 | EDS_ITS ---
HPI History of Present Illness Chief Complaint: Headache Detail of Chief Complaint: Unilateral left-sided headache with sonophobia and photophobia Informant: patient Onset/Context/Timing Onset: Today (A couple of hours prior to presentation) Context: Sudden Timing: Continuous Quality -Headache: Positive for Similar Prior Headaches and Throbbing Location: Left Current Severity: Severe Maximum Severity: Severe Worsened by: Sound and light Relieved by: Nothing Associated Symptoms/Injury Associated Symptoms: Positive for Nausea, Preceding Aura and Photophobia; Negative for Fever, Vomiting, Sore Throat, Sinus Pressure, Numbness, Tingling, Visual Changes, Blurred Vision or Visual Loss Injury - ORTIZ: Negative for Direct Trauma Narrative Narrative: Patient is a 19-year-old female. Last normal menstrual period 1 year ago. She has an IUD in place. She has history of migraine headaches. She denies fever, chills night sweats. She does endorse photophobia. Denies double vision blurred vision loss of vision. She had some mild ringing in ears initially. She has none now. She denies decreased hearing. Denies trouble speech or swallowing. She denies cardiac respiratory symptoms. She does report nausea without vomiting. She denies paresthesia, anesthesia or motor weakness upper lower extremity. Denies problems with coordination or balance. Prior similar symptoms: Yes Recent Illness/Hospitalization: No PFSH PFSH Medical History Vaginal delivery Anxiety Migraines Home Medications ?Medication ?Instructions ?Recorded ?Last Taken ?Type dextroamphetamine-amphetamine 7.5 7.5 mg PO QDAY 06/16/24 Unknown History mg tablet (Adderall) escitalopram oxalate 10 mg tablet 10 mg PO QDAY 06/16/24 Unknown History (Lexapro) levonorgestrel 20.4 mcg/24 hr (up 1 device intrauterine ONCE 06/16/24 Unknown History to 8 yrs) 52 mg intrauterine device (Liletta) Allergy/AdvReac Type Severity Reaction Status Date / Time doxycycline Allergy Intermediate hives, Verified 06/26/24 17:50 itching Family History Father Heart disease, Onset Age: 50 [place] Surgical History Status post laparoscopic cholecystectomy Social History adopted: No household members: other details: 3 roommates housing: house current occupational status: employed 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 current occupational exposures/hazards: No pets and animals: Yes (boyfriend changing litter box) pets and animals: cat(s) and dog(s) history of recent travel: No sexually active: Yes Smoking Status: Never smoker second hand exposure: Yes alcohol intake: never substance use type: does not use well-balanced diet: rarely or never caffeine: Yes Type: carbonated beverages Number of servings: 2 and coffee Number of servings: 2 eating out: 1-3 times/week what type of physical activity do you participate in: walking frequency: 3-4 times per week seatbelt use: sometimes do you feel safe at home: Yes ROS ROS ED Constitutional Constitutional ED: Denies chills, fever(s), subjective, sweats or weight loss Eyes Eyes: Denies blurry vision, change in vision or diplopia ENT ENT ED: Denies ear pain, rhinorrhea or sore throat Cardiovascular Cardiovascular: Denies chest pain or palpitations Respiratory/Chest Respiratory/Chest: Denies cough, dyspnea or dyspnea on exertion Gastrointestinal Gastrointestinal: Reports nausea; Denies abdominal pain, diarrhea or vomiting Genitourinary Genitourinary ED: Denies dysuria, hematuria or urinary frequency Musculoskeletal Musculoskeletal: Denies back pain or neck pain Integumentary Denies rash Neurologic Neurologic: Reports headache(s); Denies paresthesias or weakness Psychiatric Psychiatric: Denies anxiety Hematologic/Lymphatic Hematologic/Lymphatic: Denies easy bleeding or easy bruising EXAM Physical Exam Const Vital Signs: 06/26/24 17:47 06/26/24 19:43 Temperature 97.1 F L 98.2 F Temperature Source Oral Pulse Rate 93 98 Respiratory Rate 18 16 Blood Pressure 126/80 H 128/67 H Blood Pressure Mean 95 87 Pulse Ox 100 98 Oxygen Delivery Method Room Air Positive well nourished and well developed Constitutional Narrative: Patient has a shirt overhead to block out the light. BMI is 34.5. General Appearance ED: well developed; Negative for NAD or pallor HEENT Reports normocephalic, TM's clear and moist mucous membranes HEENT Narrative: Uvula is midline. There is no deviation with protrusion. atraumatic; Negative for temporal artery tenderness or vesicular rash Face and Sinus: Negative for sinus tenderness Tympanic Membrane ED: Yes TM's clear Eyes PERRL and EOMs intact bilaterally Eyes Narrative: There is no nystagmus. There is no APD. General Eye ED: Negative for pale conjunctiva or scleral icterus Neck no lymphadenopathy, supple, no meningeal signs and no JVD Resp normal respiratory effort and clear to auscultation bilaterally Cardio regular rate, regular rhythm, S1 normal heart sound, S2 normal heart sound and no murmurs Back/Spine no CVA tenderness Extremity normal to inspection and full ROM Neuro oriented x3, CN's II-XII intact bilaterally and no sensory deficits noted Neuro Narrative: There is no dysmetria. There is no clonus at the ankles and no Babinski noted. Mark Coma Scale: document GCS findings Spontaneous Obeys Commands Oriented 15 Sensorium / Orientation: awake and alert Coordination / Balance: [id number] test normal and Romberg test negative Speech: speech normal Motor Exam: strength 5/5 throughout Psych mental status grossly normal Skin General Skin Exam: elasticity normal and turgor normal; Negative for jaundice or pallor MDM MDM MDM Narrative Medical decision making narrative: Suspect this is patient's typical migraine. Doubt sinusitis, subarachnoid hemorrhage, venous sinus thrombosis. In my opinion will treat with Benadryl, ketorolac and Reglan. If no improvement then will consider advanced imaging and laboratory testing. Patient was reassessed at 1950. Her headache is resolved. She would like to go home. Discharge Plan Triage Chief Complaint: Headache ED Provider: Robb Reinoso Dx/Rx/DC Orders Clinical Impression: Migraine headache with aura, IUD (intrauterine device) in place Prescriptions: No Action dextroamphetamine-amphetamine [Adderall] 7.5 mg tablet 7.5 mg PO QDAY escitalopram oxalate [Lexapro] 10 mg tablet 10 mg PO QDAY Liletta 20.4 mcg/24 hr (8 yrs) 52 mg intrauterine device 1 device intrauterine ONCE Rx Instructions: as a single dose Primary Care Provider: Alisha Heller Referrals: Alisha Heller MD [Primary Care Provider] - Print Language: Welsh Disposition Disposition: Home, Self Care
[2024-06-26 20:00] VITALS: BP 128/67; PULSE 98; RESP 16; TEMP 36.8; O2SAT 98
== END 2024-06-26 20:00 | disposition home or self-care (01) ==
PROVIDERS: Emergency Provider Emergency Medicine; PCP Family Medicine; Visit Provider Emergency Medicine
DX: G43.109 Migraine with aura, not intractable, without status migrainosus (principal); F41.9 Anxiety disorder, unspecified; Z88.1 Allergy status to other antibiotic agents; Z97.5 Presence of (intrauterine) contraceptive device; Z79.899 Other long term (current) drug therapy
CPT/HCPCS: 96374; 96375; 99284; A4216

== ENCOUNTER 2024-11-24 22:45 | Emergency (ER) | payer OTHER, SELFPAY ==
[2024-11-24 22:46] VITALS: BP 122/90; PULSE 139; RESP 28; TEMP 36.1; O2SAT 100; BMI 32.4
[2024-11-24 23:48] VITALS: BP 115/83; PULSE 114; RESP 18; O2SAT 100
--- NOTE | 2024-11-25 00:25 | CT_ITS ---
PROCEDURE: ABDOMEN/PELVIS W IV CONT ONLY 11/25/2024 REASON FOR EXAM: EPIGASTRIC PAIN TECHNIQUE: Abdomen and pelvis CT with intravenous contrast. Coronal and Sagittal reconstruction series were provided. PATIENT PREPARATION: Per protocol ORAL CONTRAST TYPE: None. CONTRAST: 94 cc Isovue 370 IV One or more dose reduction techniques were used (e.g., Automated exposure control, adjustment of the mA and/or kV according to patient size, use of iterative reconstruction technique. RADIATION DOSE SUMMARY: CTDlvol: 18.81 mGy DLP: 938.70 mGycm COMPARISON: None available FINDINGS: The lung bases are clear. The liver, adrenal glands, kidneys, pancreas and spleen appear within limits. CBD appears within limits post cholecystectomy. Abdominal aorta appears within limits. No adenopathy. No bowel dilation or free air. Normal caliber appendix without secondary signs. Ovaries and uterus appear within limits. Couple of follicles suggested right ovary. Intrauterine device appears centrally located. The bladder appears within limits. No free fluid. Subcutaneous soft tissues appear within limits. No hernia identified. CT/Abdomen/Pelvis W IV Cont ONLY IMPRESSION: No evidence of acute process. Reading Location: [id number]
--- NOTE | 2024-11-25 00:44 | EX.ED.DYSGE1 ---
HPI History of Present Illness Chief Complaint: Anxiety Narrative Narrative: Patient is a 88-uqtb-tqe-year-old female with past medical history of anxiety, migraines, cholecystectomy who presented to the emergency department the chief complaint of abdominal pain. Patient states that her pain is in the epigastric region rates her pain a 8 out of 10. States that this feels similar to when she had her gallbladder out. Patient denies recent sick contacts. She states that she has been passing gas. Patient states that she did have 1 episode of vomiting earlier today and feels that this was secondary to her freaking herself out. [facility] Medical History Vaginal delivery Anxiety Migraines Home Medications ?Medication ?Instructions ?Recorded ?Last Taken ?Type escitalopram oxalate 10 mg tablet 10 mg PO QDAY 06/16/24 Unknown History (Lexapro) levonorgestrel 20.4 mcg/24 hr (up 1 device intrauterine ONCE 06/16/24 Unknown History to 8 yrs) 52 mg intrauterine device (Liletta) dextroamphetamine-amphetamine ER 20 mg PO BID 11/24/24 Unknown History 20 mg 24hr capsule,extend release dicyclomine 20 mg tablet 20 mg PO TID #30 tabs 11/25/24 Unknown Rx ondansetron 4 mg disintegrating 4 mg PO Q6H PRN nausea and 11/25/24 Unknown Rx tablet vomiting #20 tabs Allergy/AdvReac Type Severity Reaction Status Date / Time doxycycline Allergy Intermediate hives, Verified 11/24/24 22:46 itching Family History Father Heart disease, Onset Age: 50 [place] Surgical History Status post laparoscopic cholecystectomy Social History adopted: No household members: other details: 3 roommates housing: house current occupational status: employed 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 current occupational exposures/hazards: No pets and animals: Yes (boyfriend changing litter box) pets and animals: cat(s) and dog(s) history of recent travel: No sexually active: Yes Smoking Status: Current every day smoker tobacco type: e-cigarettes second hand exposure: Yes alcohol intake: never substance use type: does not use well-balanced diet: rarely or never caffeine: Yes Type: carbonated beverages Number of servings: 2 and coffee Number of servings: 2 eating out: 1-3 times/week what type of physical activity do you participate in: walking frequency: 3-4 times per week seatbelt use: sometimes do you feel safe at home: Yes ROS ROS ED ROS Narrative Constitutional: Denies fevers, chills, headaches Cardiovascular: Denies chest pain or palpitations Respiratory: Denies cough and shortness of breath Abdomen: Complains of abdominal pain as noted above and 1 episode of emesis as noted above denies any other vomiting or diarrhea : Denies urinary symptoms, denies possibility states that she has IUD in place Neurological: Denies numbness, weakness, tingling Musculoskeletal: Denies back pain Skin: Denies rashes or lesions EXAM Physical Exam Narrative Exam Narrative: General: Patient is lying in bed rest comfortably did not appear to be in acute distress Head: Atraumatic, normocephalic Eyes: PERRL bilaterally, EOMI bilateral, no conjunctival injection noted Neck: Soft, supple, trachea midline Cardiovascular: Patient is tachycardic with a regular rhythm Respiratory: Clear to auscultation bilaterally Abdomen: Soft, nondistended, tender to palpation epigastric region no rebound or guarding on exam Extremities: +5/5 strength noted in the bilateral upper and lower extremities Neurological: Patient follow commands and that she was at [facility] years 2024 Skin: Warm, dry, intact no rashes or lesions noted Const Vital Signs: 11/24/24 22:46 11/24/24 23:48 11/25/24 01:00 Temperature 96.9 F L Temperature Source Temporal Pulse Rate 139 H 114 H 94 Respiratory Rate 28 H 18 18 Blood Pressure 122/90 H 115/83 H 117/60 Blood Pressure Mean 100 93 79 Pulse Ox 100 100 100 Oxygen Delivery Method Room Air Room Air Room Air MDM MDM MDM Narrative Medical decision making narrative: Patient is a 19-year-old female who presented to the emergency department chief complaint of abdominal pain. On the differential diagnose includes but not limited to bowel obstruction, viral gastroenteritis, pancreatitis. Once workup is obtained reviewed she will be reevaluated. Patient be given IV fluids morphine Zofran. Patient CBC reviewed and was largely unremarkable with no evidence leukocytosis white blood count normal at 10.7, hemoglobin is 14.4, plate count normal at 242. Patient sodium was 139, potassium mildly low at 3.2 she will be given 40 mill equivalents of oral supplementation here, creatinine normal at 0.79. Patient AST and ALT were normal at 18 and 16 respectively total bilirubin normal at 0.39. Patient lipase is normal at 19 test was negative. Patient CT abdomen pelvis with IV contrast reviewed showed no evidence of acute processes. On reevaluation patient she is feeling better she like to go home at this point time. Prescription for Bentyl and Zofran will be sent to the pharmacy. She was advised to continue supportive care and return with worsening symptoms or concerns. She is agreeable this plan all question concerns answered she was discharged home in stable condition. Lab Data Labs: Laboratory Results - last 24 hr 11/25/24 00:43 WBC 10.7 RBC 4.95 Hgb 14.4 Hct 42.5 MCV 85.9 MCH 29.1 MCHC 33.9 RDW Std Deviation 40.2 RDW Coeff of Cristino 13.1 Plt Count 242 MPV 11.2 Immature Gran % (Auto) 0.300 Neut % (Auto) 63.0 Lymph % (Auto) 28.7 [place] % (Auto) 6.9 Eos % (Auto) 0.7 Baso % (Auto) 0.4 Absolute Neuts (auto) 6.7 Absolute Lymphs (auto) 3.07 Nucleated RBC % 0 Sodium 139 Potassium 3.2 L Chloride 104 Carbon Dioxide 21.6 Anion Gap 13 BUN 14 Creatinine 0.79 Estim Creat Clear Calc 114.95 Est GFR (MDRD) Non-Af 110 BUN/Creatinine Ratio 17.3 Glucose 103 H Calcium 9.6 Total Bilirubin 0.39 AST 18 ALT 16 Alkaline Phosphatase 107 H Total Protein 7.1 Albumin 4.7 Globulin 2.3 Albumin/Globulin Ratio 2.0 Lipase 19 Serum , Qual NEGATIVE Radiography Diagnostic Testing: Clinical Impression(s) from Imaging Studies Abdomen/Pelvis CT 11/25/24 00:25 IMPRESSION: No evidence of acute process. Reading Location: [facility] Discharge Plan Triage Chief Complaint: Anxiety ED Provider: Good [facility] Dx/Rx/DC Orders Clinical Impression: Abdominal pain, IUD (intrauterine device) in place Prescriptions: New dicyclomine 20 mg tablet 20 mg PO TID Qty: 30 0RF ondansetron 4 mg tablet,disintegrating 4 mg PO Q6H PRN (Reason: nausea and vomiting) Qty: 20 0RF No Action escitalopram oxalate [Lexapro] 10 mg tablet 10 mg PO QDAY Liletta 20.4 mcg/24 hr (8 yrs) 52 mg intrauterine device 1 device intrauterine ONCE Rx Instructions: as a single dose dextroamphetamine-amphetamine 20 mg capsule,extended release 24hr 20 mg PO BID Primary Care Provider: Alisha Heller Referrals: Alisha Heller MD [Primary Care Provider] - Activity Restrictions/Additional Instructions: Your blood work here today was largely normal and your CT scan of your abdomen did not show any acute findings. Take prescriptions that were sent to your pharmacy as prescribed. Return with worsening symptoms or concerns otherwise follow-up with your doctor in outpatient setting. Print Language: Bel[place]ian Disposition Disposition: Home, Self Care
[2024-11-25] MEDS: 0.9% Normal Saline (1000mL) 1,000 ML 999 ML IV (00:45)
[2024-11-25] MEDS: Ondansetron 4 MG/2 ML Vial IV (00:45)
[2024-11-25 01:00] VITALS: BP 117/60; PULSE 94; RESP 18; O2SAT 100
[2024-11-25 01:23] LABS: Absolute Lymphocyte Count 3.07 X10^3/uL (0.83-4.51); Absolute Neutrophil Count 6.7 X10^3/uL (2.0-7.7); Basophil# 0.04 X10^3/uL; Basophil% 0.4 % (0-1); Eosinophil# 0.08 X10^3/uL; Eosinophils% 0.7 % (0-5); Hematocrit 42.5 % (37-47); Hemoglobin 14.4 g/dL (12.0-15.0); Lymphocyte # 3.07 X10^3/ul (0.83-4.51); Lymphocyte % 28.7 % (19-41); Mean Corp Hgb Conc 33.9 g/dL (32-36); Mean Corpuscular Hgb 29.1 pg (27.0-32.0); Mean Corpuscular Volume 85.9 fL (81-99); Mean Platelet Vol. 11.2 fl (6.2-12.0); Monocyte# 0.74 X10^3/uL; Monocyte% 6.9 % (0-10); NRBC Flagged by Analyzer 0 % (0-5); Neutrophil # 6.73 X10^3/uL (2.7-7.7); Platelet Count 242 K/mm3 (150-450); RBC Distribution Width CV 13.1 % (11.6-14.6); RBC Distribution Width SD 40.2 fl (35.1-43.9); Red Blood Count 4.95 M/mm3 (4.2-5.4); White Blood Count 10.7 K/mm3 (4.4-11.0)
[2024-11-25 01:33] LABS: Internal QC Validated? YES +Cl - CLEAR BKGD; Pregnancy, Serum, hCG Quali. NEGATIVE Negative
[2024-11-25 01:39] LABS: AST(SGOT) 18 U/L (<=31); Alanine Aminotransfer ALT/SGPT 16 U/L (<=34); Albumin, Serum 4.7 g/dL (3.5-5.0); Alkaline Phosphatase 107 U/L (35-104); Anion Gap 13 (5-15); BUN 14 mg/dL (4-19); BUN/Creat Ratio 17.3 RATIO (10-20); Calcium,Total 9.6 mg/dL (7.6-11.0); Carbon Dioxide 21.6 mmol/L (21.0-32.0); Chloride 104 mmol/L (98-108); Creatinine, Serum 0.79 mg/dL (0.70-1.20); EST Glomerular Filtration Rate 110 (>60); Estimated Creatinine Clearance 114.95 ml/min (50-250); Globulin 2.3 g/dL (2.2-4.2); Glucose 103 mg/dL (70-99); Lipase 19 U/L (13-75); Potassium 3.2 mmol/L (3.3-5.1); Protein, Total 7.1 g/dL (5.9-8.4); Sodium Level 139 mmol/L (133-145); Total Bilirubin 0.39 mg/dL (0.00-1.30)
[2024-11-25 02:19] VITALS: BP 103/77; PULSE 90; RESP 18; TEMP 36.7; O2SAT 100
[2024-11-25] MEDS: Potassium Chloride Oral Tablet 20 MEQ 40 MEQ PO (02:26)
[2024-11-25] MEDS: Dicyclomine 10 MG Capsule 20 MG PO (02:26)
== END 2024-11-25 02:31 | disposition home or self-care (01) ==
PROVIDERS: Emergency Provider Emergency Medicine; PCP Family Medicine; Visit Provider Emergency Medicine
DX: R10.13 Epigastric pain (principal); F41.9 Anxiety disorder, unspecified; Z90.49 Acquired absence of other specified parts of digestive tract; Z79.899 Other long term (current) drug therapy; F17.290 Nicotine dependence, other tobacco product, uncomplicated; Z97.5 Presence of (intrauterine) contraceptive device
CPT/HCPCS: 74177; 80053; 83690; 84703; 85025; 96361; 96374; 96375; 99284; Q9967; A4216; J2405

== ENCOUNTER → 2025-02-05 | Outpatient (CLI) | payer OTHER, SELFPAY ==
--- NOTE | 2025-02-05 07:12 | CT_ITS ---
PROCEDURE: BRAIN/HEAD WITHOUT CONTRAST 02/05/2025 REASON FOR EXAM: WORENDING MIGRAINES TECHNIQUE: BRAIN/HEAD WITHOUT CONTRAST Coronal and Sagittal reconstruction series were provided. One or more dose reduction techniques were used (e.g., Automated exposure control, adjustment of the mA and/or kV according to patient size, use of iterative reconstruction technique. RADIATION DOSE SUMMARY: CTDlvol: 44.99 mGy DLP: 745.49 mGycm COMPARISON: None FINDINGS: Brain: Normal CSF Spaces: Normal Sinuses/Mastoids: Mild degree of mucosal thickening of the inferior aspect of the right maxillary sinus. Bones: Unremarkable CT/Brain/Head without Contrast IMPRESSION: NORMAL NONCONTRAST HEAD CT. Reading Location: [id number]
--- OUTSIDE RECORDS SUMMARY | 2025-02-05 07:13 | XMS RPT_ITS | CCD ---
Author Organization [facility] Team Providers Care Edging Catcher Name Role Phone Inez Martinez MD Primary Care Provider Brittny BODY AND FENDER WORKER, BODY AND FENDER WORKER-C Marine Primary Care Provider Brittny BODY AND FENDER WORKER, BODY AND FENDER WORKER-C Marine Referring Provider Dr. Negar Chavez Attending Provider [phone] Unavailable Primary Care Provider UnavailDr. Cookie Suarez Attending Provider [phone] Callao BODY AND FENDER WORKER, BODY AND FENDER WORKER-C Marine Primary Care Provider Callao BODY AND FENDER WORKER, BODY AND FENDER WORKER-C Marine Referring Provider Dr. Negar Chavez Attending Provider [phone] Dr. Cookie Alvarado Attending Provider [phone] Daija BODY AND FENDER WORKER, BODY AND FENDER WORKER-C Tiffanie Attending Provider [phone] INEZ MARTINEZ Primary Care Unavailable INEZ MARTINEZ Attending Unavailable REFERRED, SELF Referring Unavailable MARINE BLOOM Primary Care Unavailable COOKIE HUBBARD Referring Unavailab REYNOLD Garcia Attending Unavailable INEZ MARTINEZ Primary Care Unavailable INEZ MARTINEZ Attending Unavailable INEZ MARTINEZ Referring Unavailable CAMERON Brooks Attending Provider [phone] Brittny BODY AND FENDER WORKER, BODY AND FENDER WORKER-C Marine Primary Care Provider Callao BODY AND FENDER WORKER, BODY AND FENDER WORKER-C Marine Referring Provider Dr. Negar Chavez Attending Provider [phone] Dr. Negar Chavez Referring Provider [phone] Dr. Negar Chavez Other Provider [phone] Callao BODY AND FENDER WORKER, BODY AND FENDER WORKER-C Marine Primary Care Provider Brittny BODY AND FENDER WORKER, BODY AND FENDER WORKER-C Marine Referring Provider [phone] CAMERON Brooks Attending Provider Pomeroy BODY AND FENDER WORKER, BODY AND FENDER WORKER-C Tiffanie Attending Provider [phone] CAMERON Mesa Attending Provider Brittny BODY AND FENDER WORKER, BODY AND FENDER WORKER-C Marine Primary Care Provider Callao BODY AND FENDER WORKER, BODY AND FENDER WORKER-C Marine Referring Provider [phone] CAMERON Mesa Attending Provider Dr. Negar Chavez Attending Provider [phone] Daija BODY AND FENDER WORKER, BODY AND FENDER WORKER-C Tiffanie Attending Provider [phone] CAMERON Brooks Attending Provider [phone] Dr. Cookie Alvarado Attending Provider [phone] Dr. Cookie Alvarado Referring Provider [phone] Dr. Cookie Alvarado Other Provider Dr. Negar Chavez Admit Provider Dr. Negar Chavez Other Provider CAMERON Brooks Admit Provider [phone] CAMERON Brooks Other Provider [phone] Cr Hudson Emergency Provider Dr. Diego Oscar Admit Provider Dr. Diego Oscar Attending Provider Dr. Diego Oscar Other Provider Callao BODY AND FENDER WORKER, BODY AND FENDER WORKER-C Marine Primary Care Provider Callao BODY AND FENDER WORKER, BODY AND FENDER WORKER-C Marine Referring Provider Daija BODY AND FENDER WORKER, BODY AND FENDER WORKER-C Tiffanie Attending Provider Unavailable Primary Care Provider Alisha Salazar MD Primary Care Provider Dr. Good Mabry DO Emergency Provider Pomeroy BODY AND FENDER WORKER, Tiffanie Referring Unavailable Daija BODY AND FENDER WORKER, Tiffanie Attending Unavailable Arron, Chalon Primary Care Unavailable Anne Brooks Attending Unavailable Anne Brooks Referring Unavailable Brittny BODY AND FENDER WORKER, Marine Primary Care Unavailira e Anne Brooks Attending Unavailable Brittny BODY AND FENDER WORKER, Marine Primary Care Unavailabl e Brittny BODY AND FENDER WORKER, Marine Referring Unavailabl e Arron, Chalon Primary Care Unavailable Callao BODY AND FENDER WORKER, Marine Referring Unavailabl e Daija BODY AND FENDER WORKER, Tiffanie Attending Unavailable Arron, Chalon Primary Care Unavailable Arron, Chalon Attending Unavailable Arron, Chalon Referring Unavailable ReinosoRobb Attending Unavailable Arron, Chalon Primary Care Unavailable Arron, Chalon Primary Care Unavailable Good Mabry Attending Unavailable Arron, Chalon Attending Unavailable Arron, Chalon Referring Unavailable Arron, Chalon Primary Care Unavailable Allergies Allergy Classification Reported Allergen(s) Allergy Type Date of Onset Reaction(s) Facility (17 sources) Doxycycline; Translations: [DOXYCYCLINE] Drug Allergy 1 Hives, Itching, Rash, Swelling [facility] Work Phone: (1 source) Doxycycline Drug Allergy 5 [facility] Medications Current Medications Medication Drug Class(es) Dates Sig (Normalized) Sig (Original) 24 hr amphetamine aspartate 5 mg / amphetamine sulfate 5 mg / dextroamphetamine saccharate 5 mg / dextroamphetamine sulfate 5 mg extended release oral capsule (3 sources) Central Nervous System Stimulant Start: 11-24-2024 take 1 capsule by mouth twice daily Dextroamphetamin e-Amphetamine 20 mg capsule,extended release 24hr Active 20 mg PO TWICE A DAY November 24, 2024 12:00am Start: 06-16-2024 End: 11-24-2024 take 1 tablet by mouth once daily Dextroamphetamine-Amphetamine (Adderall) 7.5 mg tablet Discontinued 7.5 mg PO daily June 16, 2024 1:00am November 24, 2024 11:42pm Start: 01-25-2024 take 1 capsule by mo [facility] once amphetamine-dextroamphetamine XR (ADDERA LL XR) 20 mg capsule Take 1 capsule by mouth every afternoon. 01/25/2024 Active azelaic acid 0.15 mg/mg topi paige gel (14 sources) Start: 12-26-2020 Azelaic Acid 1 5 % gel Apply to affected area. 12/26/2020 Active Start: 12-26-2020 End: 12-13-2022 Azelaic Acid 15 % gel Discon tinued TOPICAL December 26, 2020 12:00am December 13, 2022 1:40pm DAILY TO FULL FACE Comment on above: Apply to affected ar ea. dicyclomine hydrochloride 20 mg oral tablet (1 source) Anticholinergic Start: 11-26-19 25 take 1 tablet by mouth three times daily Dicyclomine 20 mg tablet Active 20 mg PO THREE TIMES A DAY November 25, 2024 12:00am escitalopram 10 mg oral tablet (2 sources) Serotonin Reuptake Inhibitor Start: 06-16-20 take 1 tablet by mouth once daily Escitalopram Oxalate (Lexapro) 10 mg tablet Active 10 mg PO daily June 16, 2024 1:00am Start: 02-29-2024 take 1 tablet by mouth once es citalopram oxalate (LEXAPRO) 20 mg tablet Take 1 tablet by mouth every afternoon. 02/29/2024 Active levonorgestrel 0.087844 mg/hr intrauterine system (1 source) Progestin, Progestin-containing Intrauterine Device Start: 06-16-2024 Levonorgestrel (Liletta) 20.4 mcg/24 hr (8 yrs) 52 mg intrauterine device Active 1 NMA INTRA-UTER ONCE June 16, 2024 1:00am as a single dose lisdexamfetamine dimesylate 20 mg oral capsule (3 sources) Central Nervous System Stimulant Start: 12-18-2014 take 1 capsule by mouth once daily lisdexamfetamine (VYVANSE) 20 mg capsule Take 1 capsule by mouth once daily. 30 capsule 0 12/18/2014 Active Comment on above: Take 1 capsule by [facility] once daily. [place] (Nk) (1 source) Start: 07-24-2023 [place] (Nk) Active July 24, 2023 1:00am [place] 3 1200 MG CAPS (1 source) Start: 03-11-2021 take 1 capsule by mouth twice daily at mealtime [place] 3 1200 MG CAPS Take 1 Capsule (1,200 mg) by mouth 2 times daily Take with meals 60 Capsule 2 03/11/2021 Active ondansetron 4 mg disintegrating oral tablet (4 sources) Serotonin-3 Receptor Antagonist Start: 11-25-2024 take 1 tablet by mouth every six hours as needed for nausea and vomiting Ondansetron 4 mg tablet,disintegrati ng Active 4 mg PO EVERY 6 HOURS as needed for nausea and vomiting November 25, 2024 12:00am Start: 06-03-2021 take 1 tablet by jacob th every eight hours as needed for nausea ondansetron (ZOFRAN) 8 mg tablet Take 1 Tablet (8 mg) by mouth every 8 hours as needed for Nausea for up to 21 days 06/03/2021 Active Comment on above: Take 1 Tablet (8 mg) by mouth every 8 hours as needed for Nausea for up to 21 days vit no.124/iron/folic ( VITAMIN ORAL) (3 sources) vit no.124/iron/folic ( VITAMIN ORAL) Take by mouth. Active vit no. 124/iron/folic ( VITAMIN ORAL) Take by mouth. 0 Active Comment on above: Take by mouth. spironolactone 50 mg oral tablet (3 sources) Aldosterone Antagonist Start: 06-02-20 take 1 tablet by mouth once daily spironolactone (ALDACTONE) 50 mg tablet TAKE 1 TABLET BY MOUTH ONCE DAILY at the same time every day 06/02/2021 Active Comment on above: TAKE 1 TABLET BY JACOB TH ONCE DAILY at the same time every day SUMAtriptan 50 mg oral tablet (4 sources) Serotonin-1b and Serotonin-1d Receptor Agonist Start: 06-03-20 SUMAtriptan (IMITREX) 50 mg tablet Take 1-2 tabs at onset of headache, may repeat dose 2 hours later prn with a max dose of 200 mg per day 06/03/2021 Active Comment on above: Take 1-2 tabs at ons et of headache, may repeat dose 2 hours later prn with a max dose of 200 mg per day vitamin B-2 (RIBOFLAVIN) 100 MG capsule (1 source) Start: 04-12-20 take 1 capsule by mouth twice daily vitamin B-2 (RIBOFLAVIN) 100 MG capsule Take 1 Cap (100 mg) by mouth 2 times daily 60 Cap 1 04/12/2020 Active Completed/Discontinued Medications Medication Drug Class(es) Dates Sig (Normalized) Sig (Original) docosahexaenoic acid 200 mg oral capsule (7 sources) Start: 12-13-2022 End: 06-30-2023 Docosahexaenoic Acid ( Dha) 200 mg capsule Discontinued mg PO December 13, 2022 12:00am June 30, 2023 3:51am fluconazole 150 mg oral tablet (1 source) Azole Antifungal Start: 05-15-2024 End: 06-16-2024 Fluconazole 150 mg tablet Discontinued 150 mg PO Every 3 Days 2 0 May 15, 2024 12:00am June 16, 2024 3:47pm december repeat second dose 72 hrs after first dose if symptoms persist metroNIDAZOLE 500 mg oral tablet (1 source) Nitroimidazole Antimicrobial Start: 05-17-2024 End: 06-16-2024 take 1 tablet by mouth twice daily Metronidazole 500 mg tablet Discontinued 500 mg PO TWICE A DAY May 17, 2024 12:00am June 16, 2024 3:47pm oxyCODONE hydrochloride 5 mg oral tablet (3 sources) Opioid Agonist Start: 07-01-2023 End: 07-17-2023 take 1 tablet by mouth every six hours as needed for pain Oxycodone 5 mg Tablet Discontinued 5 mg PO EVERY 6 HOURS NEEDED as needed for Pain Score 6-10 10 July 01, 2023 July 17, 2023 11:12am predniSONE 20 mg oral tablet (11 sources) Start: 12-26-2020 End: 07-20-2021 take 3 tablets by mouth once daily Prednisone 20 mg tablet Discontinued 60 mg PO DAILY December 26, 2020 12:00am July 20, 2021 10:49am Start: 12-26-2020 End: 07-20-2021 take 60 mg by mouth once daily Prednisone Discontinued 60 MG PO DAILY December 26, 2020 12:00am July 20, 2021 10:49am Problems Active Problems Problem Classification Problem Date Documented Date Episodic/Chronic Abdominal pain (2 sources) Abdominal pain; Translations: [Unspecified abdominal pain] Onset: 11-28-2024 11-25-2024 Episodic Anxiety disorders (10 sources) Anxiety; Translations: [Anxiety disorder, unspecified] 09-26-2022 Chronic Biliary tract disease (10 sources) Acute cholecystitis due to biliary calculus; Translations: [Calculus of gallbladder with acute cholecystitis without obstruction] 06-30-2023 Episodic Contraceptive and procreative management (2 sources) Encounter for routine checking of intrauterine contraceptive device; Translations: [Surveillance of intrauterine contraceptive device] 09-11-2023 Episodic Comment on above: brandon 06/2023 Disorders of lipid metabolism (1 source) Hyperlipidemia; Translations: [Other hyperlipidemia] Chronic Disorders of teeth and jaw (1 source) Toothache; Translations: [Other specified disorders of teeth and supporting structures] 04-14-2024 Episodic Disorders usually diagnosed in infancy, childhood, or adolescence (3 sources) Attention deficit hyperactivity disorder, predominantly inattentive type; Translations: [Other specified behavioral and emotional disorders with onset usually occurring in childhood and adolescence] Onset: 10-05-2011 10-05-2011 Chronic Headache; including migraine (2 sources) Migraine with aura; Translations: [Migraine with aura, not intractable, without status migrainosus] Onset: 01-22-2025 07-04-2024 Chronic Headache; including migraine (1 source) Headache; including migraine; Translations: [Headache, unspecified] Onset: 07-25-2024 Menstrual disorders (1 source) Amenorrhea, unspecified; Translations: [Amenorrhea, unspecified] Onset: 06-16-2024 Chronic Other complications of (10 sources) Maternal obesity complicating , childbirth and the puerperium, antepartum; Translations: [Obesity complicating , unspecified trimester] 10-02-2022 Chronic Comment on above: 1 TM GCT, reviewed h ealthy weight gain. Other complications of (20 sources) Obesity complicating , unspecified trimester; Translations: [Obesity complicating , childbirth, or the puerperium, unspecified as to episode of care or not applicable] 10-02-2022 Chronic Other complications of (9 sources) Anxiety in ; Translations: [Other mental disorders complicating , unspecified trimester] 09-26-2022 Episodic Other complications of (20 sources) Other mental disorders complicating , unspecified trimester; Translations: [Mental disorders of mother, antepartum condition or complication] 10-02-2022 Episodic Comment on above: stable-not on medica tion Other complications of (1 source) Other specified related conditions, unspecified trimester; Translations: [Other specified complications of , unspecified as to episode of care or not applicable] 02-26-2023 Episodic Other complications of (4 sources) Uterine size for dates discrepancy; Translations: [Uterine size-date discrepancy, unspecified trimester] 05-15-2023 Episodic Other complications of (4 sources) Reduced movement; Translations: [Decreased movements, unspecified trimester, not applicable or unspecified] 05-07-2023 Episodic Other complications of (4 sources) Decreased movements, unspecified trimester, not applicable or unspecified; Translations: [Decreased movements, affecting management of mother, antepartum condition or complication] 05-01-2023 Episodic Other complications of (2 sources) Uterine size-date discrepancy, unspecified trimester; Translations: [Uterine size date discrepancy, unspecified as to episode of care or not applicable] 05-10-2023 Episodic Other liver diseases (4 sources) Elevated liver enzymes level; Translations: [Abnormal levels of other serum enzymes] 06-30-2023 Episodic Other liver diseases (2 sources) Abnormal levels of other serum enzymes; Translations: [Other nonspecific abnormal serum enzyme levels] 06-30-2023 Episodic Other non-traumatic joint disorders (1 source) Hip pain; Translations: [Pain in left hip] Episodic Other and delivery including normal (20 sources) Normal ; Translations: [Encounter for supervision of normal first , unspecified trimester] 10-01-2022 Episodic Comment on above: KW 40 IOL [place] boy Zack PRR RADHA 05/11/23 boy Zack BF-Esteban GBS negative. NIPT l ow risk declines carrier and ntd screening, nl anatomy Other upper respiratory infections (2 sources) Sore throat symptom; Translations: [Acute pharyngitis, unspecified] 03-09-2023 Episodic Polyhydramnios and other problems of amniotic cavity (20 sources) Subchorionic hematoma; Translations: [Other specified disorders of amniotic fluid and membranes, first trimester, not applicable or unspecified] 10-02-2022 Episodic Comment on above: fu in 2-3 weeks to r eevaluate, 1.5cm. gone on visit 10/18/22 Spondylosis; intervertebral disc disorders; other back problems (1 source) Low back pain; Translations: [Lumbar pain] Episodic Past or Other Problems Problem Classification Problem Date Documented Date Episodic/Chronic Genitourinary symptoms and ill-defined conditions (3 sources) Urinary symptoms ; Translations: [Unspecified symptoms and signs involving the genitourinary system] Onset: 05-15-2024 06-16-2024 Episodic Malaise and fatigue (1 source) Other fatigue; Translations: [Other fatigue] Onset: 07-02-2024 Episodic Mycoses (2 sources) Mycosis; Translations: [Candidiasis, unspecified] Onset: 06-06-2024 06-16-2024 Episodic Other screening for suspected conditions (not mental disorders or infectious disease) (6 sources) Patient encounter status; Translations: [Encounter for test, result unknown] Onset: 07-07-2024 Episodic Results Test Name Value Interpretation Reference Range Facility Abdomen/Pelvis W IV Cont ONL Yon 11-25-2024 Abdomen/Pelvis W IV Cont ONLY [facility] Imaging Services [address] [place] [address] Abdomen/Pelvis W IV Cont ONLY MR#: [id number] Acct: [id number] Name: LUCY ANDERSON Rep #: [id number] : 2005 F 19 From: Jose Juan Martinez MD PCP: Dr. Alisha Heller MD Status: REG ER Study: Abdomen/Pelvis W IV Cont ONLY Date of Exam: Exam# [id number] Ordering Dr: Good Mabry DO PROCEDURE: ABDOMEN/PELVIS W IV CONT ONLY 11/25/2024 REASON FOR EXAM: EPIGASTRIC PAIN TECHNIQUE: Abdomen and pelvis CT with intravenous contrast. Coronal and Sagittal reconstruction series were provided. PATIENT PREPARATION: Per protocol ORAL CONTRAST TYPE: None. CONTRAST: 94 cc Isovue 370 IV One or more dose reduction techniques were used (e.g., Automated exposure control, adjustment of the mA and/or kV according to patient size, use of iterative reconstruction technique. RADIATION DOSE SUMMARY: CTDlvol: 18.81 mGy DLP: 938.70 mGycm COMPARISON: None available FINDINGS: The lung bases are clear. The liver, adrenal glands, kidneys, pancreas and spleen appear within limits. CBD appears within limits post cholecystectomy. Abdominal aorta appears within limits. No adenopathy. No bowel dilation or free air. Normal caliber appendix without secondary signs. Ovaries and uterus appear within limits. Couple of follicles suggested right ovary. Intrauterine device appears centrally located. The bladder appears within limits. No free fluid. Subcutaneous soft tissues appear within limits. No hernia identified. CT/Abdomen/Pelvis W IV Cont ONLY IMPRESSION: No evidence of acute process. Reading Location: [facility] CC: Dr. Alisha Heller MD; Dr. Good Mabry DO Industrial Methods Consultant: Signed Normal [facility] Absolute neutrophil countOrd ered By: Good Mabry on 11-25-2024 Neutrophils (Bld) [#/Vol] 6.7 10*3/uL 2.0-7.7 [facility] Anion gap in Serum or Plasma Ordered By: Good Mabry on 11-25-2024 Anion gap [Moles/Vol] 13 mmol/L - [facility] BUN/creatinine ratioOrdered By: Good Mabry on 11-25-2024 Urea nitrogen/Creatinine [Mass ratio] 17.3 mg/mg - [facility] Basophil percentageOrdered B y: Good Mabry on 11-25-2024 Basophils/100 WBC (Bld) 0.4 % 0-1 [facility] Beta HCG ( test) Ql Ordered By: Good Mabry on 11-25-2024 Serum Test, Qualitative Negative [facility] Bilirubin, totalOrdered By: oGod Mabry on 11-25-2024 Bilirubin [Mass/Vol] 0.39 mg/dL 0.00-1.30 [facility] CBC W/Diff, Automatedon 11-11 Absolute Lymph 3.07 X10 3/uL Normal 0.83-4.51 [facility] Comment on above: Performed By: #### L 501.2450, L500.4050, L100.0100, L700.6800 ####[facility] [address] [place], [address] Absolute Neut 6.7 X10 3/uL Normal 2.0-7.7 [facility] Comment on above: Performed By: #### L 501.2450, L500.4050, L100.0100, L700.6800 ####[facility] [address] [place], [address] Basophils/100 WBC (Bld) 0.4 % Normal 0-1 [facility] Comment on above: Performed By: #### L 501.2450, L500.4050, L100.0100, L700.6800 ####[facility] [address] [place], [address] Eosinophils/100 WBC (Bld) 0.7 % Normal 0-5 [facility] Comment on above: Performed By: #### L 501.2450, L500.4050, L100.0100, L700.6800 ####[facility] [address] [place], [address] Erythrocyte distribution width (RBC) [Ratio] 13.1 % Normal 11.6-14.6 [facility] Comment on above: Performed By: #### L 501.2450, L500.4050, L100.0100, L700.6800 ####[facility] [address] [place], [address] Hematocrit (Bld) [Volume fraction] 42.5 % Normal 37-47 [facility] Comment on above: Performed By: #### L 501.2450, L500.4050, L100.0100, L700.6800 ####[facility] [address] [place], [address] Hemoglobin (Bld) [Mass/Vol] 14.4 g/dL Normal 12.0-15.0 [facility] Comment on above: Performed By: #### L 501.2450, L500.4050, L100.0100, L700.6800 ####[facility] [address] [place], [address] IG% 0.300 Normal 0.0-0.9 [facility] Comment on above: Result Comment: IG% - Immature Granulocytes (promyelocytes, myelocytes and metamyelocytes) > 1% indicates that a LEFT SHIFT is Present. Performed By: #### L 501.2450, L500.4050, L100.0100, L700.6800 ####[facility] [address] [place], [address] Lymphocytes/100 WBC (Bld) 28.7 % Normal 19-41 [facility] Comment on above: Performed By: #### L 501.2450, L500.4050, L100.0100, L700.6800 ####[facility] [address] [place], [address] MCH (RBC) [Entitic mass] 29.1 pg Normal 27.0-32.0 [facility] Comment on above: Performed By: #### L 501.2450, L500.4050, L100.0100, L700.6800 ####[facility] [address] [place], [address] MCHC (RBC) [Mass/Vol] 33.9 g/dL Normal 32-36 [facility] Comment on above: Performed By: #### L 501.2450, L500.4050, L100.0100, L700.6800 ####[facility] [address] [place], [address] MCV (RBC) [Entitic vol] 85.9 fL Normal 81-99 [facility] Comment on above: Performed By: #### L 501.2450, L500.4050, L100.0100, L700.6800 ####[facility] [address] [place], [address] Monocytes/100 WBC (Bld) 6.9 % Normal 0-10 [facility] Comment on above: Performed By: #### L 501.2450, L500.4050, L100.0100, L700.6800 ####[facility] [address] [place], [address] Neutrophils/100 WBC (Bld) 63.0 % Normal 47-70 [facility] Comment on above: Performed By: #### L 501.2450, L500.4050, L100.0100, L700.6800 ####[facility] [address] [place], [address] Nucleated RBC (Bld) [#/Vol] 0 10*3/uL Normal 0-5 [facility] Comment on above: Performed By: #### L 501.2450, L500.4050, L100.0100, L700.6800 ####[facility] [address] [place], [address] Platelet mean volume (Bld) [Entitic vol] 11.2 fL Normal 6.2-12.0 [facility] Comment on above: Performed By: #### L 501.2450, L500.4050, L100.0100, L700.6800 ####[facility] [address] [place], [address] Platelets (Bld) [#/Vol] 242 10*3/uL Normal 150-450 [facility] Comment on above: Performed By: #### L 501.2450, L500.4050, L100.0100, L700.6800 ####[facility] [address] [place], [address] RBC (Bld) [#/Vol] 4.95 10*6/uL Normal 4.2-5.4 [facility] Comment on above: Performed By: #### L 501.2450, L500.4050, L100.0100, L700.6800 ####[facility] [address] [place], [address] RDW SD 40.2 fl Normal 35.1-43.9 [facility] Comment on above: Performed By: #### L 501.2450, L500.4050, L100.0100, L700.6800 ####[facility] [address] [place], [address] WBC (Bld) [#/Vol] 10.7 10*3/uL Normal 4.4-11.0 [facility] Comment on above: Performed By: #### L 501.2450, L500.4050, L100.0100, L700.6800 ####[facility] [address] [place], [address] Carbon dioxide, total [Moles /volume] in Central venous bloodOrdered By: Good Mabry on 11-25-2024 CO2 [Moles/Vol] 21.6 mmol/L 21.0-32.0 [facility] Chloride assayOrdered By: Sharan Mabry on 11-25-2024 Chloride [Moles/Vol] 104 mmol/L 98-108 [facility] Comprehensive Metabolic Prof ilon 11-25-2024 Albumin [Mass/Vol] 4.7 g/dL Normal 3.5-5.0 [facility] Comment on above: Performed By: #### L 501.2450, L500.4050, L100.0100, L700.6800 ####[facility] [address] [place], [address] Albumin/Globulin [Mass ratio] 2.0 {ratio} Normal 0.9-2.4 [facility] Comment on above: Performed By: #### L 501.2450, L500.4050, L100.0100, L700.6800 ####[facility] [address] [place], [address] ALK PHOS 107 U/L High 35-104 [facility] Comment on above: Performed By: #### L 501.2450, L500.4050, L100.0100, L700.6800 ####[facility] [address] [place], [address] ALT [Catalytic activity/Vol] 16 U/L Normal <=34 [facility] Comment on above: Performed By: #### L 501.2450, L500.4050, L100.0100, L700.6800 ####[facility] [address] [place], [address] AST [Catalytic activity/Vol] 18 U/L Normal <=31 [facility] Comment on above: Performed By: #### L 501.2450, L500.4050, L100.0100, L700.6800 ####[facility] [address] [place], [address] Bilirubin [Mass/Vol] 0.39 mg/dL Normal 0.00-1.30 [facility] Comment on above: Performed By: #### L 501.2450, L500.4050, L100.0100, L700.6800 ####[facility] [address] [place], [address] BUN/CRE 17.3 RATIO Normal 10-20 [facility] Comment on above: Performed By: #### L 501.2450, L500.4050, L100.0100, L700.6800 ####[facility] [address] [place], [address] Calcium [Mass/Vol] 9.6 mg/dL Normal 7.6-11.0 [facility] Comment on above: Performed By: #### L 501.2450, L500.4050, L100.0100, L700.6800 ####[facility] [address] [place], [address] Chloride [Moles/Vol] 104 mmol/L Normal 98-108 [facility] Comment on above: Performed By: #### L 501.2450, L500.4050, L100.0100, L700.6800 ####[facility] [address] [place], [address] CO2 [Moles/Vol] 21.6 mmol/L Normal 21.0-32.0 [facility] Comment on above: Performed By: #### L 501.2450, L500.4050, L100.0100, L700.6800 ####[facility] [address] [place], [address] Creatinine [Mass/Vol] 0.79 mg/dL Normal 0.70-1.20 [facility] Comment on above: Performed By: #### L 501.2450, L500.4050, L100.0100, L700.6800 ####[facility] [address] [place], [address] ECRCL 114.95 ml/min Normal 50-250 [facility] Comment on above: Performed By: #### L 501.2450, L500.4050, L100.0100, L700.6800 ####[facility] [address] [place], [address] GAP 13 Normal 5-15 [facility] Comment on above: Performed By: #### L 501.2450, L500.4050, L100.0100, L700.6800 ####[facility] [address] [place], [address] GFR/1.73 sq M.predicted among non-blacks MDRD (S/P/Bld) [Vol rate/Area] 110 mL/min/{1.73_m2} Normal >60 [facility] Comment on above: Result Comment: mL/m in/1.73m2 CKD-EPI Creatinine Equation (2020) Performed By: #### L 501.2450, L500.4050, L100.0100, L700.6800 ####[facility] [address] [place], [address] Globulin (S) [Mass/Vol] 2.3 g/dL Normal 2.2-4.2 [facility] Comment on above: Performed By: #### L 501.2450, L500.4050, L100.0100, L700.6800 ####[facility] [address] [place], [address] Glucose [Mass/Vol] 103 mg/dL High 70-99 [facility] Comment on above: Performed By: #### L 501.2450, L500.4050, L100.0100, L700.6800 ####[facility] [address] [place], [address] Potassium [Moles/Vol] 3.2 mmol/L Low 3.3-5.1 [facility] Comment on above: Performed By: #### L 501.2450, L500.4050, L100.0100, L700.6800 ####[facility] [address] [place], [address] Sodium [Moles/Vol] 139 mmol/L Normal 133-145 [facility] Comment on above: Performed By: #### L 501.2450, L500.4050, L100.0100, L700.6800 ####[facility] [address] [place], [address] T PROT 7.1 g/dL Normal 5.9-8.4 [facility] Comment on above: Performed By: #### L 501.2450, L500.4050, L100.0100, L700.6800 ####[facility] [address], [address] Urea nitrogen [Mass/Vol] 14 mg/dL Normal 4-19 [facility] Comment on above: Performed By: #### L 501.2450, L500.4050, L100.0100, L700.6800 ####[facility] [address] [place], [address] Emergency Department Summary on 11-25-2024 Emergency Department Summary [facility] Medical Records Department [address] [place] [address] Emergency Department Summary 11/25/24 MR#: [id number] Acct: [id number] Name: LUCY ANDERSON Rep #: [id number] : 2005 19 From: Good Mabry DO PCP: Dr. Alisha Heller MD Status:REG ER Location: ED HPI History of Present Illness Chief Complaint: Anxiety Narrative Narrative: Patient is a 64-lhlv-jmq-year-old female with past medical history of anxiety, migraines, cholecystectomy who presented to the emergency department the chief complaint of abdominal pain. Patient states that her pain is in the epigastric region rates her pain a 8 out of 10. States that this feels similar to when she had her gallbladder out. Patient denies recent sick contacts. She states that she has been passing gas. Patient states that she did have 1 episode of vomiting earlier today and feels that this was secondary to her freaking herself out. [facility] Medical History Vaginal delivery Anxiety Migraines Home Medications ???Medication ???Instructions ???Recorded ???Last Taken ???Type escitalopram oxalate 10 mg tablet 10 mg PO QDAY 06/16/24 Unknown Hi story (Lexapro) levonorgestrel 20.4 mcg/24 hr (up 1 device intrauterine ONCE Unknown History to 8 yrs) 52 mg intrauterine device (Liletta) dextroamphetamine-am phetamine ER 20 mg PO BID 11/24/24 Unknown Hist ory 20 mg 24hr capsule,extend release dicyclomine 20 mg tablet 20 mg PO TID #30 tabs 11/25/24 Unk nown Rx ondansetron 4 mg disintegrating 4 mg PO Q6H PRN nausea and 5 Unknown Rx tablet vomiting #20 tabs Allergy/AdvReac Type Severity Reaction Status Date / Time doxycycline Allergy Intermediate hives, Verified 11/24/24 22:46 itching Family History Father Heart disease, Onset Age: 50 [place] Surgical History Status post laparoscopic cholecystectomy Social History adopted: No household members: other details: 3 roommates housing: house current occupational status: employed 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 occupational exposures/hazards: No pets and animals: Yes (boyfriend changing litter box) pets and animals: cat(s) and dog(s) history of recent travel: No sexually active: Yes Smoking Status: Current every day smoker tobacco type: e-cigarettes second hand exposure: Yes alcohol intake: never substance use type: does not use well-balanced diet: rarely or never caffeine: Yes Type: carbonated beverages Number of servings: 2 and coffee Number of servings: 2 eating out: 1-3 times/week what type of physical activity do you participate in: walking frequency: 3-4 times per week seatbelt use: sometimes do you feel safe at home: Yes ROS ROS ED ROS Narrative Constitutional: Denies fevers, chills, headaches Cardiovascular: Denies chest pain or palpitations Respiratory: Denies cough and shortness of breath Abdomen: Complains of abdominal pain as noted above and 1 episode of emesis as noted above denies any other vomiting or diarrhea : Denies urinary symptoms, denies possibility states that she has IUD in place Neurological: Denies numbness, weakness, tingling Musculoskeletal: Denies back pain Skin: Denies rashes or lesions EXAM Physical Exam Narrative Exam Narrative: General: Patient is lying in bed rest comfortably did not appear to be in acute distress Head: Atraumatic, normocephalic Eyes: PERRL bilaterally, EOMI bilateral, no conjunctival injection noted Neck: Soft, supple, trachea midline Cardiovascular: Patient is tachycardic with a regular rhythm Respiratory: Clear to auscultation bilaterally Abdomen: Soft, nondistended, tender to palpation epigastric region no rebound or guarding on exam Extremities: +5/5 strength noted in the bilateral upper and lower extremities Neurological: Patient follow commands and that she was at [facility] 2024 Skin: Warm, dry, intact no rashes or lesions noted Const Vital Signs: 11/24/24 22:46 11/24/24 23:48 11/25/24 01:00 Temperature 96.9 F L Temperature Source Temporal Pulse Rate 139 H 114 H 94 Respiratory Rate 28 H 18 18 Blood Pressure 122/90 H 115/83 H 117/60 Blood Pressure Mean 100 93 79 Pulse Ox 100 100 100 Oxygen Delivery Method Room Air Room Air Room Air MDM MDM MDM Narrative Medical decision making narrative: Patient is a 19-year-old female who presented to the emergency department chief complaint of abdominal pain. On the differential diagnose includes but not limited to bowel obstruction, viral gastroenteritis, pancreatitis (more content not included)... Normal [facility] Eosinophil percentageOrdered By: Good Mabry on 11-25-2024 Eosinophils/100 WBC (Bld) 0.7 % 0-5 [facility] Erythrocyte distribution wid th (RBC) [Ratio]Ordered By: Good Mabry on 11-25-2024 Erythrocyte distribution width (RBC) [Entitic vol] 40.2 fL 35.1-43.9 [facility] Erythrocyte distribution wid th ratioOrdered By: Good Mabry on 11-25-2024 Erythrocyte distribution width (RBC) [Ratio] 13.1 % 11.6-14.6 [facility] Estimation of creatinine dee aranceOrdered By: Good Mabry on 11-25-2024 Estimated Creatinine Clearance Calc 114.95 ml/min 50-250 [facility] GFR/1.73 sq M.predicted barron g non-blacks MDRD (S/P/Bld) [Vol rate/Area]Ordered By: Good Mabry on 11-25-2024 Estimated GFR (MDRD) Non-Af Amer 110 >60 [facility] Comment on above: mL/min/1.73m2 CKD-EP I Creatinine Equation (2020) Hematocrit Auto (Bld) [Volum e fraction]Ordered By: Good Mabry on 11-25-2024 Hematocrit (Bld) [Volume fraction] 42.5 % 37-47 [facility] Hemoglobin measurementOrdere d By: Good Mabry on 11-25-2024 Hemoglobin (Bld) [Mass/Vol] 14.4 g/dL 12.0-15.0 [facility] Immature granulocytes/100 WB C Auto (Bld)Ordered By: Good Mabry on 11-25-2024 Immature granulocytes/100 WBC (Bld) 0.300 % 0.0-0.9 [facility] Comment on above: IG% - Immature Granu locytes (promyelocytes, myelocytes and metamyelocytes) > 1% indicates that a LEFT SHIFT is Present. Laboratory - Chemistry and C hemistry - challengeOrdered By: Good Mabry on 11-25-2024 AST [Catalytic activity/Vol] 18 U/L <32 [facility] Lipaseon 11-25-2024 Lipase [Catalytic activity/Vol] 19 U/L Normal 13-75 [facility] Comment on above: Result Comment: Plea se note: LIPASE revised reference range effective 22. New Lipase methodology. Expected to produce lower values than the previous assay method. NEW Reference Range: 13 - 75 U/L Performed By: #### L 501.2450, L500.4050, L100.0100, L700.6800 ####[facility] [address] [place], [address] Lipase measurementOrdered By : Good Mabry on 11-25-2024 Lipase [Catalytic activity/Vol] 19 U/L 13-75 [facility] Comment on above: Please note:LIPASE r evised reference range effective 22. New Lipase methodology. Expected to produce lower values than the previous assay method. NEW Reference Range: 13 - 75 U/L Lymphocytes Auto (Unsp spec) [#/Vol]Ordered By: Good Mabry on 11-25-2024 Lymphocytes (Bld) [#/Vol] 3.07 10*3/uL 0.83-4.51 [facility] Lymphocytes/100 WBC Auto (Un sp spec)Ordered By: Good Mabry on 11-25-2024 Lymphocytes/100 WBC (Bld) 28.7 % 19-41 [facility] MCV (mean corpuscular volume ) determinationOrdered By: Good Mabry on 11-25-2024 MCV (RBC) [Entitic vol] 85.9 fL 81-99 [facility] Mean corpuscular hemoglobin (MCH) determinationOrdered By: Good Mabry on 11-25-2024 MCH (RBC) [Entitic mass] 29.1 pg 27.0-32.0 [facility] Mean corpuscular hemoglobin concentration (MCHC) determinationOrdered By: Good Mabry on 11-25-2024 MCHC (RBC) [Mass/Vol] 33.9 g/dL 32-36 [facility] Mean platelet volume determi nationOrdered By: Good Mabry on 11-25-2024 Platelet mean volume (Bld) [Entitic vol] 11.2 fL 6.2-12.0 [facility] Monocyte percentageOrdered B y: Good Mabry on 11-25-2024 Monocytes/100 WBC (Bld) 6.9 % 0-10 [facility] Neutrophil percentageOrdered By: Good Mabry on 11-25-2024 Neutrophils/100 WBC (Bld) 63.0 % 47-70 [facility] Nucleated red blood cell per centageOrdered By: Good Mabry on 11-25-2024 Nucleated RBC/100 WBC (Bld) [Ratio] 0 % 0-5 [facility] Platelet countOrdered By: Sharan Mabry on 11-25-2024 Platelets (Bld) [#/Vol] 242 10*3/uL 150-450 [facility] Potassium (Unsp spec) [Mass/ Vol]Ordered By: Good Mabry on 11-25-2024 Potassium [Moles/Vol] 3.2 mmol/L Low 3.3-5.1 [facility] ,Serum,hCG Quali.on 11-25-2024 HCG, SERUM QUAL Negative Normal [facility] Comment on above: Performed By: #### L 501.2450, L500.4050, L100.0100, L700.6800 ####[facility] [address] [place], [place], [id number] RBC Auto (Bld) [#/Vol]Ordere d By: Good Mabry on 11-25-2024 RBC (Bld) [#/Vol] 4.95 10*6/uL 4.2-5.4 [facility] Serum creatinine measurement (mass/volume)Ordered By: Good Mabry on 11-25-2024 Creatinine [Mass/Vol] 0.79 mg/dL 0.70-1.20 [facility] Serum globulin measurementOr dered By: Good Mabry on 11-25-2024 Globulin (S) [Mass/Vol] 2.3 g/dL 2.2-4.2 [facility] Serum glucose measurement (m ass/volume)Ordered By: Good Mabry on 11-25-2024 Glucose [Mass/Vol] 103 mg/dL High 70-99 [facility] Serum or plasma alanine bobo otransferase (ALT) measurementOrdered By: Good Mabry on 11-25-2024 ALT [Catalytic activity/Vol] 16 U/L <35 [facility] Serum or plasma albumin jewel urement (mass/volume)Ordered By: Good Mabry on 11-25-2024 Albumin [Mass/Vol] 4.7 g/dL 3.5-5.0 [facility] Serum or plasma albumin/glob ulin mass ratioOrdered By: Good Mabry on 11-25-2024 Albumin/Globulin [Mass ratio] 2.0 {ratio} 0.9-2.4 [facility] Serum or plasma alkaline sanya sphatase measurementOrdered By: Good Mabry on 11-25-2024 ALP [Catalytic activity/Vol] 107 U/L High 35-104 [facility] Serum or plasma calcium jewel urement (mass/volume)Ordered By: Good Mabry on 11-25-2024 Calcium [Mass/Vol] 9.6 mg/dL 7.6-11.0 [facility] Serum or plasma urea nitroge n measurement (mass/volume)Ordered By: Good Mabry on 11-25-2024 Urea nitrogen [Mass/Vol] 14 mg/dL 4-19 [facility] Sodium levelOrdered By: Samra Mabry on 11-25-2024 Sodium [Moles/Vol] 139 mmol/L 133-145 [facility] Total proteinOrdered By: Sofia Mabry on 11-25-2024 Protein [Mass/Vol] 7.1 g/dL 5.9-8.4 [facility] White blood cell (WBC) count Ordered By: Good Mabry on 11-25-2024 WBC (Bld) [#/Vol] 10.7 10*3/uL 4.4-11.0 [facility] Emergency Department Summary on 06-26-2024 Emergency Department Summary [facility] Medical Records Department [address] [place] [address] Emergency Department Summary 06/26/24 MR#: [id number] Acct: [id number] Name: LUCY ANDERSON Rep #: [id number] : 2005 19 From: Robb Reinoso MD PCP: Dr. Alisha Heller MD Status:REG ER Location: ED HPI History of Present Illness Chief Complaint: Headache Detail of Chief Complaint: Unilateral left-sided headache with sonophobia and photophobia Informant: patient Onset/Context/Timing Onset: Today (A couple of hours prior to presentation) Context: Sudden Timing: Continuous Quality -Headache: Positive for Similar Prior Headaches and Throbbing Location: Left Current Severity: Severe Maximum Severity: Severe Worsened by: Sound and light Relieved by: Nothing Associated Symptoms/Injury Associated Symptoms: Positive for Nausea, Preceding Aura and Photophobia; Negative for Fever, Vomiting, Sore Throat, Sinus Pressure, Numbness, Tingling, Visual Changes, Blurred Vision or Visual Loss Injury - ORTIZ: Negative for Direct Trauma Narrative Narrative: Patient is a 19-year-old female. Last normal menstrual period 1 year ago. She has an IUD in place. She has history of migraine headaches. She denies fever, chills night sweats. She does endorse photophobia. Denies double vision blurred vision loss of vision. She had some mild ringing in ears initially. She has none now. She denies decreased hearing. Denies trouble speech or swallowing. She denies cardiac respiratory symptoms. She does report nausea without vomiting. She denies paresthesia, anesthesia or motor weakness upper lower extremity. Denies problems with coordination or balance. Prior similar symptoms: Yes Recent Illness/Hospitalizat ion: No PFSH PFSH Medical History Vaginal delivery Anxiety Migraines Home Medications ???Medication ???Instructions ???Recorded ???Last Taken ???Type dextroamphetamine-am phetamine 7.5 7.5 mg PO QDAY 06/16/24 Unknown History mg tablet (Adderall) escitalopram oxalate 10 mg tablet 10 mg PO QDAY 06/16/24 Unknown History (Lexapro) levonorgestrel 20.4 mcg/24 hr (up 1 device intrauterine ONCE 06/16/24 Unknown History to 8 yrs) 52 mg intrauterine device (Liletta) Allergy/AdvReac Type Severity Reaction Status Date / Time doxycycline Allergy Intermediate hives, Verified 06/26/24 17:50 itching Family History Father Heart disease, Onset Age: 50 [place] Surgical History Status post laparoscopic cholecystectomy Social History adopted: No household members: other details: 3 roommates housing: house current occupational status: employed 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 occupational exposures/hazards: No pets and animals: Yes (boyfriend changing litter box) pets and animals: cat(s) and dog(s) history of recent travel: No sexually active: Yes Smoking Status: Never smoker second hand exposure: Yes alcohol intake: never substance use type: does not use well-balanced diet: rarely or never caffeine: Yes Type: carbonated beverages Number of servings: 2 and coffee Number of servings: 2 eating out: 1-3 times/week what type of physical activity do you participate in: walking frequency: 3-4 times per week seatbelt use: sometimes do you feel safe at home: Yes ROS ROS ED Constitutional Constitutional ED: Denies chills, fever(s), subjective, sweats or weight loss Eyes Eyes: Denies blurry vision, change in vision or diplopia ENT ENT ED: Denies ear pain, rhinorrhea or sore throat Cardiovascular Cardiovascular: Denies chest pain or palpitations Respiratory/Chest Respiratory/Chest: Denies cough, dyspnea or dyspnea on exertion Gastrointestinal Gastrointestinal: Reports nausea; Denies abdominal pain, diarrhea or vomiting Genitourinary Genitourinary ED: Denies dysuria, hematuria or urinary frequency Musculoskeletal Musculoskeletal: Denies back pain or neck pain Integumentary Denies rash Neurologic Neurologic: Reports headache(s); Denies paresthesias or weakness Psychiatric Psychiatric: Denies anxiety Hematologic/Lymphati c Hematologic/Lymphati c: Denies easy bleeding or easy bruising EXAM Physical Exam Const Vital Signs: 06/26/24 17:47 06/26/24 19:43 Temperature 97.1 F L 98.2 F Temperature Source Oral Pulse Rate 93 98 Respiratory Rate 18 16 Blood Pressure 126/80 H 128/67 H Blood Pressure Mean 95 87 Pulse Ox 100 98 Oxygen Delivery Method Room Air Positive well nourished and well developed Constitutional Narrative: Patient has a shirt overhead to block out the light. BMI is 34.5. General Audie (more content not included)... Normal [facility] PAP I-G w/rfx hrHPV-Aptimaon 06-24-2024 ADEQ Comment Normal . [facility] Comment on above: Order Comment: Speci ed Comment: [id number] Comment: Source.............CervixSpecimen Comment: LMP / Prev Treat...[id number] Comment: No. of containers..01 ThinPrep Vial Result Comment: Sati sfactory for evaluation. Endocervical and/or squamous metaplastic cells (endocervical component) are present. Performed By: #### L 7000.1800, L7400.0353 ####[facility] [address] [facility] [place], [place], [id number] COMM . Normal . [facility] Comment on above: Order Comment: Speci men Comment: [id number] Comment: Source.............CervixSpecimen Comment: LMP / Prev Treat...[id number] Comment: No. of containers..01 ThinPrep Vial Performed By: #### L 7000.1800, L7400.0353 ####[facility] [address] [facility]. [place], [place], [address] COMMENT Comment Normal . [facility] Comment on above: Order Comment: Speci men Comment: [id number] Comment: Source.............CervixSpecimen Comment: LMP / Prev Treat...[id number] Comment: No. of containers..01 ThinPrep Vial Result Comment: This liquid based ThinPrep(R) pap test was screened with the use of an image guided system. Performed By: #### L 7000.1800, L7400.0353 ####[facility] [address] [place], [place], [id number] DIAG Comment Normal . [facility] Comment on above: Order Comment: Speci men Comment: [id number] Comment: Source.............CervixSpecimen Comment: LMP / Prev Treat...[id number] Comment: No. of containers..01 ThinPrep Vial Result Comment: NEGA TIVE FOR INTRAEPITHELIAL LESION OR MALIGNANCY. Performed By: #### L 7000.1800, L7400.0353 ####[facility] [address] [place], [address] HPV RFLX Comment Normal . [facility] Comment on above: Order Comment: Speci men Comment: [id number] Comment: Source.............CervixSpecimen Comment: LMP / Prev Treat...[id number] Comment: No. of containers..01 ThinPrep Vial Result Comment: The HPV DNA reflex criteria were not met with this specimen result therefore, no HPV testing was performed. Performed at: - [address] [id number] [employer] Co[employer] Machine Setter: Janelle Christine MD, Phone: [phone] Performed By: #### L 7000.1800, L7400.0353 ####[facility] [address] [place], [place], [address] PAPSMR Comment Normal . [facility] Comment on above: Order Comment: Speci men Comment: [id number] Comment: Source.............CervixSpecimen Comment: LMP / Prev Treat...[id number] Comment: No. of containers..01 ThinPrep Vial Result Comment: The Pap smear is a screening test designed to aid in the detection of premalignant and malignant conditions of the uterine cervix. It is not a diagnostic procedure and should not be used as the sole means of detecting cervical cancer. Both false-positive and false-negative reports do occur. Performed By: #### L 7000.1800, L7400.0353 ####[facility] [address] [place], [place], [address] PERFORM Comment Normal . [facility] Comment on above: Order Comment: Speci men Comment: [id number] Comment: Source.............CervixSpecimen Comment: LMP / Prev Treat...[id number] Comment: No. of containers..01 ThinPrep Vial Result Comment: Eduardo Linton, French Comber (ASCP) Performed By: #### L 7000.1800, L7400.0353 ####[facility] [address] [place], [place], [address] Chlamydia/GC KARIME aptimaon CHLAMY,NUC ACID Negative Normal Negative [facility] Comment on above: Performed By: #### L 7000.1800, L7400.0353 ####[facility] [address] [place], [place], [address] GC BY NUC ACID Negative Normal Negative [facility] Comment on above: Result Comment: Perf ormed at: =G - [facility] [address] [place] [id number] [employer] Machine Setter: Janelle Christine MD, Phone: [phone] Performed By: #### L 7000.1800, L7400.0353 ####[facility] [address] [place], [place], [address] Mortgage Closer Office Visit Reporton 06-16-2024 Mortgage Closer Office Visit Report [facility] [address] [place] [address], [address] [place] [address] OFFICE VISIT Date of Service: 06/16/24 MR#: [id number] Acct: [id number] Name: LUCY ANDERSON Rep #: [id number] : 2005 Provider: CARMEN wise Age/Sex: 19/F Location[place] [facility] [place]: Signed Intake Vital Signs 09/11/23 15:19 05/15/24 15:35 06/16/24 14:38 06/16/24 14:47 Height 5 ft 3 in 5 ft 3 in 5 ft 3 in 5 ft 3 in Weight: 194 lb BMI 34.3 BP 126/82 H 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: 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 Policy Checker Required: No Is patient in pain?: No Allergies doxycycline Allergy (Intermediate, Verified 06/16/24 14:37) hives, itching Medications ???Medication ???Instructions ???Recorded ???Confirmed ???Type dextroamphetamine-am phetamine 7.5 7.5 mg PO QDAY 06/16/24 06/16/24 History mg tablet (Adderall) escitalopram oxalate 10 mg tablet 10 mg PO QDAY 06/16/24 06/16/24 History (Lexapro) levonorgestrel 20.4 mcg/24 hr (up 1 device intrauterine ONCE 06/16/24 06/16/24 History to 8 yrs) 52 mg intrauterine device (Liletta) Is last menstrual period known: Yes Last Menstrual Period: 05/16/24 Post menopausal: No Patient : No : No PFSH Medical History Vaginal delivery Anxiety Migraines Surgical History Status post laparoscopic cholecystectomy Family History Father Heart disease, Onset Age: 50 [place] Social History adopted: No household members: other details: 3 roommates housing: house current occupational status: employed 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 occupational exposures/hazards: No pets and animals: Yes (boyfriend changing litter box) pets and animals: cat(s) and dog(s) history of recent travel: No sexually active: Yes Smoking Status: Never smoker second hand exposure: Yes alcohol intake: never substance use type: does not use well-balanced diet: rarely or never caffeine: Yes Type: carbonated beverages Number of servings: 2 and coffee Number of servings: 2 eating out: 1-3 times/week what type of physical activity do you participate in: walking frequency: 3-4 times per week seatbelt use: sometimes do you feel safe at home: Yes History 1 Elective abortions Hx Para 1 Spontaneous abortions Hx # Term Pregnancies Ectopic pregnancies Hx # Pregnancies Multiple births # of living children 1 Past Pregnancies Del. Date Name GA/Weeks Outcome Route Bth Weight Infant Gen Labor Lgth Anesthesia Del Locatn Provider FOB 05/08/23 Zack 40 live - full term Male epidural wch Ricky umanzor Todd Delivery Date: 05/08/23 Last Updated by: Lori Jaimes 2nd degree laceration HPI Encounter for routine gynecological examination Details: LUCY ANDERSON is a 19 year old who presents for annual exam. Random spotting with IUD, happy with contraception. Same partner. Last PAP: baseline Other preventative health care screenings: Arron Female Reproductive History Last Menstrual Period: 05/16/24 Questions: metorrhagia: No, sexually active: Yes, dyspareunia: No and PCB: No ROS Const Constitutional: Denies fatigue, weight gain or weight loss Cardio Card: Denies chest pain Resp Resp: Denies cough or dyspnea on exertion GI GI: Denies abdominal pain, bloating, change in stool character, constipation or vomiting : Reports as per HPI; Denies difficulty voiding, pelvic pain, urinary frequency, urinary incontinence, urinary urgency, vaginal discharge or vaginal pruritus Exam Const General: cooperative, healthy appearing, no acute distress and well developed Orientation: alert, oriented to person and oriented to place [facility] Head: normal to inspection Neck Neck: normal visual inspection Thyroid: thyroid normal Lymphatic: no lymphadenopathy noted Chest Breast inspection: normal inspection of the breasts and normal inspection of the axillae Breast palpation: normal palpation of the breasts, normal palpation of the axillae and no axillary lymphadenopathy Resp Effort Inspection: normal respiratory effort GI Palpation: soft, no masses and nontender Rectal Exam: deferred External Female Exam: normal external appearance and normal appearance of the urethra Urethra: normal appearance of the urethra and normal palpation Speculum Exam - Vagina: normal appearance of the vagina and normal vaginal discharge Speculum Exam - Cervix: normal appearance of the cervix Bimanual Exam- Vagina Uterus: normal bimanual exam, uterine size normal, uterine shape normal and non-t (more content not included)... Normal [facility] CBC W/Diff, Automatedon 10-2 Absolute Lymph 2.23 X10 3/uL Normal 0.83-4.51 [facility] Comment on above: Order Comment: Order Date: 06/10/24 Order Info: 0184-1 - CBCD Performed By: #### L 501.9520, L501.15465, L506.0400, L100.0100, L500.4050, L506.1000 #### [facility] [address] [place], [address] Absolute Neut 4.5 X10 3/uL Normal 2.0-7.7 [facility] Comment on above: Order Comment: Order Date: 06/10/24 Order Info: 0184-1 - CBCD Performed By: #### L 501.9520, L501.00680, L506.0400, L100.0100, L500.4050, L506.1000 #### [facility] [address] [place], [address] Basophils/100 WBC (Bld) 0.4 % Normal 0-1 [facility] Comment on above: Order Comment: Order Date: 06/10/24 Order Info: 0184-1 - CBCD Performed By: #### L 501.9520, L501.40264, L506.0400, L100.0100, L500.4050, L506.1000 #### [facility] [address] [place], [address] Eosinophils/100 WBC (Bld) 1.9 % Normal 0-5 [facility] Comment on above: Order Comment: Order Date: 06/10/24 Order Info: 0184-1 - CBCD Performed By: #### L 501.9520, L501.93736, L506.0400, L100.0100, L500.4050, L506.1000 #### [facility] [address] [place], [address] Erythrocyte distribution width (RBC) [Ratio] 12.8 % Normal 11.6-14.6 [facility] Comment on above: Order Comment: Order Date: 06/10/24 Order Info: 0184-1 - CBCD Performed By: #### L 501.9520, L501.09330, L506.0400, L100.0100, L500.4050, L506.1000 #### [facility] [address] [place], [address] Hematocrit (Bld) [Volume fraction] 42.5 % Normal 37-47 [facility] Comment on above: Order Comment: Order Date: 06/10/24 Order Info: 0184-1 - CBCD Performed By: #### L 501.9520, L501.80589, L506.0400, L100.0100, L500.4050, L506.1000 #### [facility] [address] [place], [address] Hemoglobin (Bld) [Mass/Vol] 13.5 g/dL Normal 12.0-15.0 [facility] Comment on above: Order Comment: Order Date: 06/10/24 Order Info: 0184-1 - CBCD Performed By: #### L 501.9520, L501.37126, L506.0400, L100.0100, L500.4050, L506.1000 #### [facility] [address] [place], [address] IG% 0.100 Normal 0.0-0.9 [facility] Comment on above: Order Comment: Order Date: 06/10/24 Order Info: 0184-1 - CBCD Result Comment: IG% - Immature Granulocytes (promyelocytes, myelocytes and metamyelocytes) > 1% indicates that a LEFT SHIFT is Present. Performed By: #### L 501.9520, L501.18380, L506.0400, L100.0100, L500.4050, L506.1000 #### [facility] [address] [place], [address] Lymphocytes/100 WBC (Bld) 30.1 % Normal 19-41 [facility] Comment on above: Order Comment: Order Date: 06/10/24 Order Info: 0184 - CBCD Performed By: #### L 501.9520, L501.46710, L506.0400, L100.0100, L500.4050, L506.1000 #### [facility] [address] [place], [address] MCH (RBC) [Entitic mass] 28.3 pg Normal 27.0-32.0 [facility] Comment on above: Order Comment: Order Date: 06/10/24 Order Info: 0184- - CBCD Performed By: #### L 501.9520, L501.40879, L506.0400, L100.0100, L500.4050, L506.1000 #### [facility] [address] [place], [address] MCHC (RBC) [Mass/Vol] 31.8 g/dL Low 32-36 [facility] Comment on above: Order Comment: Order Date: 06/10/24 Order Info: 0184- - CBCD Performed By: #### L 501.9520, L501.39167, L506.0400, L100.0100, L500.4050, L506.1000 #### [facility] [address] [place], [address] MCV (RBC) [Entitic vol] 89.1 fL Normal 81-99 [facility] Comment on above: Order Comment: Order Date: 06/10/24 Order Info: 0184- - CBCD Performed By: #### L 501.9520, L501.49336, L506.0400, L100.0100, L500.4050, L506.1000 #### [facility] [address] [place], [address] Monocytes/100 WBC (Bld) 6.3 % Normal 0-10 [facility] Comment on above: Order Comment: Order Date: 06/10/24 Order Info: 0184- - CBCD Performed By: #### L 501.9520, L501.51519, L506.0400, L100.0100, L500.4050, L506.1000 #### [facility] [address] [place], [address] Neutrophils/100 WBC (Bld) 61.2 % Normal 47-70 [facility] Comment on above: Order Comment: Order Date: 06/10/24 Order Info: 0184 - CBCD Performed By: #### L 501.9520, L501.80271, L506.0400, L100.0100, L500.4050, L506.1000 #### [facility] [address] [place], [address] Nucleated RBC (Bld) [#/Vol] 0 10*3/uL Normal 0-5 [facility] Comment on above: Order Comment: Order Date: 06/10/24 Order Info: 0184- - CBCD Performed By: #### L 501.9520, L501.52404, L506.0400, L100.0100, L500.4050, L506.1000 #### [facility] [address] [place], [address] Platelet mean volume (Bld) [Entitic vol] 11.4 fL Normal 6.2-12.0 [facility] Comment on above: Order Comment: Order Date: 06/10/24 Order Info: 0184- - CBCD Performed By: #### L 501.9520, L501.37789, L506.0400, L100.0100, L500.4050, L506.1000 #### [facility] [address] [place], [address] Platelets (Bld) [#/Vol] 252 10*3/uL Normal 150-450 [facility] Comment on above: Order Comment: Order Date: 06/10/24 Order Info: 0184- - CBCD Performed By: #### L 501.9520, L501.35677, L506.0400, L100.0100, L500.4050, L506.1000 #### [facility] [address] [place], [address] RBC (Bld) [#/Vol] 4.77 10*6/uL Normal 4.2-5.4 [facility] Comment on above: Order Comment: Order Date: 06/10/24 Order Info: 0184 - CBCD Performed By: #### L 501.9520, L501.95858, L506.0400, L100.0100, L500.4050, L506.1000 #### [facility] [address] [place], [address] RDW SD 41.9 fl Normal 35.1-43.9 [facility] Comment on above: Order Comment: Order Date: 06/10/24 Order Info: 0184- - CBCD Performed By: #### L 501.9520, L501.84555, L506.0400, L100.0100, L500.4050, L506.1000 #### [facility] [address] [place], [address] WBC (Bld) [#/Vol] 7.4 10*3/uL Normal 4.4-11.0 [facility] Comment on above: Order Comment: Order Date: 06/10/24 Order Info: 0184-1 - CBCD Performed By: #### L 501.9520, L501.54996, L506.0400, L100.0100, L500.4050, L506.1000 #### [facility] [address] [place], [address] Comprehensive Metabolic Prof ilon 06-10-2024 Albumin [Mass/Vol] 4.0 g/dL Normal 3.2-5.0 [facility] Comment on above: Order Comment: Order Date: 06/10/24 Order Info: 0786-1 - CMP Order Info: 3051-0 - T3F Order Info: 3016-3 - TSH Order Info: 302-7 - T4F Performed By: #### L 501.9520, L501.06276, L506.0400, L100.0100, L500.4050, L506.1000 #### [facility] [address] [place], [address] Albumin/Globulin [Mass ratio] 1.2 {ratio} Normal 0.9-2.4 [facility] Comment on above: Order Comment: Order Date: 06/10/24 Order Info: 0786-1 - CMP Order Info: 3051-0 - T3F Order Info: 3016-3 - TSH Order Info: 3024-7 - T4F Performed By: #### L 501.9520, L501.79986, L506.0400, L100.0100, L500.4050, L506.1000 #### [facility] [address] [place], [address] ALK P 147 U/L High 45-117 [facility] Comment on above: Order Comment: Order Date: 06/10/24 Order Info: 0786-1 - CMP Order Info: 3051-0 - T3F Order Info: 3016-3 - TSH Order Info: 3024-7 - T4F Performed By: #### L 501.9520, L501.55543, L506.0400, L100.0100, L500.4050, L506.1000 #### [facility] [address] [place], [address] ALT [Catalytic activity/Vol] 27 U/L Normal 13-56 [facility] Comment on above: Order Comment: Order Date: 06/10/24 Order Info: 0786-1 - CMP Order Info: 3051-0 - T3F Order Info: 3016-3 - TSH Order Info: 3024-7 - T4F Performed By: #### L 501.9520, L501.04132, L506.0400, L100.0100, L500.4050, L506.1000 #### [facility] [address] [place], [address] AST [Catalytic activity/Vol] 13 U/L Low 15-37 [facility] Comment on above: Order Comment: Order Date: 06/10/24 Order Info: 0786-1 - CMP Order Info: 3051-0 - T3F Order Info: 3016-3 - TSH Order Info: 3024-7 - T4F Performed By: #### L 501.9520, L501.27447, L506.0400, L100.0100, L500.4050, L506.1000 #### [facility] [address] [place], [address] Bilirubin [Mass/Vol] 0.30 mg/dL Normal 0.20-1.00 [facility] Comment on above: Order Comment: Order Date: 06/10/24 Order Info: 0786-1 - CMP Order Info: 3051-0 - T3F Order Info: 3016-3 - TSH Order Info: 3024-7 - T4F Result Comment: For patients on eltrombopag therapy, use of Dimension [place] TBIL is not recommended. Performed By: #### L 501.9520, L501.10019, L506.0400, L100.0100, L500.4050, L506.1000 #### [facility] [address] [place], [address] BUN/CRE 18.2 RATIO Normal 10-20 [facility] Comment on above: Order Comment: Order Date: 06/10/24 Order Info: 0786-1 - CMP Order Info: 3051-0 - T3F Order Info: 3016-3 - TSH Order Info: 3024-7 - T4F Performed By: #### L 501.9520, L501.28809, L506.0400, L100.0100, L500.4050, L506.1000 #### [facility] [address] [place], [address] CA,Total 9.0 mg/dL Normal 8.5-10.1 [facility] Comment on above: Order Comment: Order Date: 06/10/24 Order Info: 07-1 - CMP Order Info: 3051-0 - T3F Order Info: 3016-3 - TSH Order Info: 3024-7 - T4F Performed By: #### L 501.9520, L501.44718, L506.0400, L100.0100, L500.4050, L506.1000 #### [facility] [address] [place], [address] Chloride [Moles/Vol] 108 mmol/L High 98-107 [facility] Comment on above: Order Comment: Order Date: 06/10/24 Order Info: 0786-1 - CMP Order Info: 3051-0 - T3F Order Info: 3016-3 - TSH Order Info: 3024-7 - T4F Performed By: #### L 501.9520, L501.09275, L506.0400, L100.0100, L500.4050, L506.1000 #### [facility] [address] [place], [address] CO2 [Moles/Vol] 24.0 mmol/L Normal 21.0-32.0 [facility] Comment on above: Order Comment: Order Date: 06/10/24 Order Info: 0786-1 - CMP Order Info: 3051-0 - T3F Order Info: 3 - TSH Order Info: 7 - T4F Performed By: #### L 501.9520, L501.00706, L506.0400, L100.0100, L500.4050, L506.1000 #### [facility] [address] [place], [address] Creatinine [Mass/Vol] 0.77 mg/dL Normal 0.55-1.02 [facility] Comment on above: Order Comment: Order Date: 06/10/24 Order Info: 785-1 - CMP Order Info: 0 - T3F Order Info: 3015-10 - TSH Order Info: 3024-02 - T4F Result Comment: The validity of the calculated GFR GFRAA in patients over 70 years has not been determined. Clinical correlation is essential. Performed By: #### L 501.9520, L501.95938, L506.0400, L100.0100, L500.4050, L506.1000 #### [facility] [address] [place], [address] EST GFR - AA 121 mL/min Normal >60 [facility] Comment on above: Order Comment: Order Date: 06/10/24 Order Info: 07 - CMP Order Info: 0 - T3F Order Info: 3015-10 - TSH Order Info: 3024-02 - T4F Result Comment: Afri can Albanian GFR Calc Performed By: #### L 501.9520, L501.31800, L506.0400, L100.0100, L500.4050, L506.1000 #### [facility] [address] [place], [address] GAP 8 Normal 5-15 [facility] Comment on above: Order Comment: Order Date: 06/10/24 Order Info: 071 - CMP Order Info: 1-0 - T3F Order Info: 3015-10 - TSH Order Info: 7 - T4F Performed By: #### L 501.9520, L501.40808, L506.0400, L100.0100, L500.4050, L506.1000 #### [facility] [address] [place], [address] GFR/1.73 sq M.predicted among non-blacks MDRD (S/P/Bld) [Vol rate/Area] 100 mL/min/{1.73_m2} Normal >60 [facility] Comment on above: Order Comment: Order Date: 06/10/24 Order Info: 785-1 - CMP Order Info: 3050-0 - T3F Order Info: 3 - TSH Order Info: 7 - T4F Result Comment: Non- GFR Calc Performed By: #### L 501.9520, L501.38502, L506.0400, L100.0100, L500.4050, L506.1000 #### [facility] [address] [place], [address] Globulin (S) [Mass/Vol] 3.3 g/dL Normal 2.2-4.2 [facility] Comment on above: Order Comment: Order Date: 06/10/24 Order Info: 785-08 - CMP Order Info: 0 - T3F Order Info: 3 - TSH Order Info: 7 - T4F Performed By: #### L 501.9520, L501.82497, L506.0400, L100.0100, L500.4050, L506.1000 #### [facility] [address] [place], [address] Glucose [Mass/Vol] 96 mg/dL Normal 74-106 [facility] Comment on above: Order Comment: Order Date: 06/10/24 Order Info: 1 - CMP Order Info: 3050-0 - T3F Order Info: 3013 - TSH Order Info: 3027 - T4F Performed By: #### L 501.9520, L501.02680, L506.0400, L100.0100, L500.4050, L506.1000 #### [facility] [address] [place], [address] Potassium [Moles/Vol] 3.5 mmol/L Normal 3.5-5.1 [facility] Comment on above: Order Comment: Order Date: 06/10/24 Order Info: 86-1 - CMP Order Info: 3051-0 - T3F Order Info: 3016-3 - TSH Order Info: 3024-7 - T4F Performed By: #### L 501.9520, L501.05791, L506.0400, L100.0100, L500.4050, L506.1000 #### [facility] [address] [place], [address] Sodium [Moles/Vol] 140 mmol/L Normal 136-145 [facility] Comment on above: Order Comment: Order Date: 06/10/24 Order Info: 785-1 - CMP Order Info: 3051-0 - T3F Order Info: 3016-3 - TSH Order Info: 3024-7 - T4F Performed By: #### L 501.9520, L501.69007, L506.0400, L100.0100, L500.4050, L506.1000 #### [facility] [address] [place], [address] T PROT 7.3 g/dL Normal 6.4-8.2 [facility] Comment on above: Order Comment: Order Date: 06/10/24 Order Info: 0786-1 - CMP Order Info: 3051-0 - T3F Order Info: 3016-3 - TSH Order Info: 3024-7 - T4F Performed By: #### L 501.9520, L501.36206, L506.0400, L100.0100, L500.4050, L506.1000 #### [facility] [address] [place], [address] Urea nitrogen [Mass/Vol] 14 mg/dL Normal 7-18 [facility] Comment on above: Order Comment: Order Date: 06/10/24 Order Info: 07 - CMP Order Info: 3051-0 - T3F Order Info: 3 - TSH Order Info: 7 - T4F Performed By: #### L 501.9520, L501.96624, L506.0400, L100.0100, L500.4050, L506.1000 #### [facility] [address] [place], [address] Free T3on 06-10-2024 Free T3 [Mass/Vol] 3.0 pg/mL Normal 2.18-3.98 [facility] Comment on above: Order Comment: Order Date: 06/10/24 Order Info: 07 - CMP Order Info: 3051-0 - T3F Order Info: 3 - TSH Order Info: 3024-02 - T4F Performed By: #### L 501.9520, L501.19332, L506.0400, L100.0100, L500.4050, L506.1000 #### [facility] [address] [place], [address] T4 Free Directon 06-10-2024 T4 FREE DIRECT 0.89 ng/dL Normal 0.76-1.46 [facility] Comment on above: Order Comment: Order Date: 06/10/24Order Info: 07 - CMPOrder Info: 305-0 - Q2MBqpeq Info: 3 - TSHOrder Info: 7 - T4F Performed By: #### L 501.9520, L501.47127, L506.0400, L100.0100, L500.4050, L506.1000 ####[facility] [address] [place], [address] Thyroid Stim Hormone (TSH)on 06-10-2024 TSH 1.250 uIU/mL Normal 0.358-3.740 [facility] Comment on above: Order Comment: Order Date: 06/10/24 Order Info: 0786- - CMP Order Info: 3051-0 - T3F Order Info: 3016-3 - TSH Order Info: 3024-7 - T4F Performed By: #### L 501.9520, L501.52482, L506.0400, L100.0100, L500.4050, L506.1000 #### [facility] [address] [place], [address] Vitamin D,25 Hydroxyon 06-10 Vitamin D 25-OH 13.9 ng/mL Normal [facility] Comment on above: Order Comment: Order Date: 06/10/24Order Info: 08553-0 - VITD25 Result Comment: Crystal min D 25(OH) Status Range Deficiency <20 ng/mL (50nmol/L) Insufficiency 20 - 30 ng/mL (50 - 75 nmol/L) Sufficiency 30 - 100 ng/mL (75 - 250 nmol/L) Toxicity >100 ng/mL (>250 nmol/L) Performed By: #### L 501.9520, L501.72756, L506.0400, L100.0100, L500.4050, L506.1000 ####[facility] [address] [place], [address] Genital Culture Comprehensiv kenroy 05-18-2024 VAC Reason for Exam: yeast injection No Neisseria or beta-hemolytic Streptococcus isolated. Presumptive C albicans Amount Growth 3+ G. vaginalis (Presumptive) G. vaginalis (Presumptive) Normal [facility] Comment on above: Performed By: #### M , M100.3200 #### [facility] [address] [place], [address] Gram Stainon 05-15-2024 GS Reason for Exam: yeast injection Gram Stain 4+ Gram positive rods No Gram negative diplococci Rare White Blood Cells 1+ Epithelial cells 4+ Gram variable chase Very Rare Yeast Like Organisms Score = 4 Interpretation: 0-3 Normal, 4-6 Intermediate, 7-10 Positive BV Normal [facility] Comment on above: Performed By: #### M 100.2000, M100.3200 #### [facility] [place], [address] Mortgage Closer Office Visit Reporton 05-15-2024 Mortgage Closer Office Visit Report [facility] [address], [address] [place] [address] OFFICE VISIT Date of Service: 05/15/24 MR#: [id number] Acct: [id number] Name: LUCY ANDERSON Rep #: [id number] : 2005 Provider: CAMEORN Stevens ams Age/Sex: 19/F [place] [facility] [place]: Signed Intake Vital Signs 09/11/23 15:19 05/15/24 15:34 05/15/24 15:35 Height 5 ft 3 in 5 ft 3 in 5 ft 3 in Weight: 190 lb BMI 33.6 BP 119/81 H Intake Visit Reasons: odorous vaginal disharge, vaginal pain Policy Checker Required: No Is patient in pain?: No Allergies doxycycline Allergy (Intermediate, Verified 05/15/24 15:35) hives, itching Medications ???Medication ???Instructions ???Recorded ???Confirmed ???Type fluconazole 150 mg tablet 150 mg PO Q3D 2 doses #2 tabs 05/15/24 05/15/24 Rx Post menopausal: No Patient : No : No PFSH Medical History (Updated 05/15/24 @ 15:49 by Anne Brooks CNM) Vaginal delivery Anxiety Migraines Surgical History (Updated 09/11/23 @ 15:27 by Tiffanie Choe NP, [employer]) Status post laparoscopic cholecystectomy Family History Father Heart disease, Onset Age: 50 [place] Social History adopted: No household members: other details: 3 roommates housing: house current occupational status: employed 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 occupational exposures/hazards: No pets and animals: Yes (boyfriend changing litter box) pets and animals: cat(s) and dog(s) history of recent travel: No sexually active: Yes Smoking Status: Never smoker second hand exposure: Yes alcohol intake: never substance use type: does not use well-balanced diet: rarely or never caffeine: Yes Type: carbonated beverages Number of servings: 2 and coffee Number of servings: 2 eating out: 1-3 times/week what type of physical activity do you participate in: walking frequency: 3-4 times per week seatbelt use: sometimes do you feel safe at home: Yes HPI odorous vaginal disharge, vaginal pain Details: LUCY ANDERSON is a 19 year old who presents for vaginal odor and discharge x 3 days. feels as though she has swelling and burning occasionally. has not tried anything for relief. possible UTI sx. History 1 Elective abortions Hx Para 1 Spontaneous abortions Hx # Term Pregnancies Ectopic pregnancies Hx # Pregnancies Multiple births # of living children 1 Past Pregnancies Del. Date Name GA/Weeks Outcome Route Bth Weight Infant Gen Labor Lgth Anesthesia Del Locatn Provider FOB 05/08/23 Zack 40 live - full term Male epidural wch Ricky Brooks Delivery Date: 05/08/23 Last Updated by: Lori Jaimes 2nd degree laceration ROS Const Constitutional: Reports system reviewed and no additional complaints, except as documented Cardio Card: Reports system reviewed and no additional complaints, except as documented Resp Resp: Reports system reviewed and no additional complaints, except as documented GI GI: Reports system reviewed and no additional complaints, except as documented : Reports system reviewed and no additional complaints, except as documented; Denies difficulty voiding, dysuria or urinary frequency Skin Skin/Breast: Reports system reviewed and no additional complaints, except as documented Neuro Neuro: Reports system reviewed and no additional complaints, except as documented Psych Psych: Reports system reviewed and no additional complaints, except as documented Exam Const General: cooperative, healthy appearing, comfortable and no acute distress Resp Effort Inspection: normal respiratory effort, able to speak in complete sentences and symmetric chest movement GI Inspection: normal to inspection Palpation: soft External Female Exam: normal external appearance and normal appearance of the urethra Urethra: normal appearance of the urethra Speculum Exam - Vagina: normal appearance of the vagina and abnormal vaginal discharge (thick) white Speculum Exam - Cervix: normal appearance of the cervix and nontender Bimanual Exam- Vagina Uterus: normal bimanual exam, normal palpation, uterine size normal, No tender and non-tender Bimanual Exam- Adnexa, other: normal Pelvic Support: normal Skin General: no rashes or lesions noted Neuro General: patient alert, patient awake and patient oriented x3 Cognition: normal cognition Speech: speech normal Gait: normal gait Extrem General: normal to inspection Psych Appearance: grossly normal and well kempt Mental Status: mental status grossly normal Affect: normal affect Speech and Movement: speech and movement normal Attitude: access coordinator (more content not included)... Normal [facility] CNOVon 04-14-2024 CNOV Office Visit (UCWSTR) LUCY ANDERSON ([id number]) 1 F Date Time Provider Department 04/14/24 10:00 AM JEREMIAS ARAUZ [facility] During your visit today, we recorded the following information about you: Temperature Pulse Respiration Blood pressure 98.2 degrees 86/minute 16/minute 128/82 Weight 86.1 kg Jeremias Arauz, JOÃO.[employer] 04/14/2024 10:11 AM Signed Subjective HPI Nontoxic-appearing female presents urgent care chief plaint dental pain. Duration of symptoms 2 weeks. Associated symptoms pain and swelling. Pain is mostly on the left lower. Did have wisdom teeth removed. Presents today with persistent discomfort. Did finish amoxicillin. Has not followed up with dentist yet. No trismus difficulty swallowing and secretion decreased range of motion of neck. Denies any fever body aches chills productive cough chest pain shortness of breath pleuritic pain hemoptysis nausea vomiting abdominal pain change in bowel or bladder habits. Past medical history prescription medication use and allergies reviewed. .Patient presents with: Dental Problem: left wisdom tooth removal x 2 weeks, still swelling after taking amoxicillin PAST MEDICAL HISTORY 10/05/2011: ADD (attention deficit disorder) 06/26/14: NEGATIVE HISTORY OF Comment: Normal [facility] [employer] No date: NEGATIVE MEDICAL HISTORY PAST SURGICAL HISTORY 11/05/08: TONSILLECTOMY AND ADENOIDECTOMY ALLERGIES Doxycycline MEDICATIONS amphetamine-dextroam phetamine XR (ADDERALL XR) 20 mg capsule Take 1 capsule by mouth every afternoon. escitalopram oxalate (LEXAPRO) 20 mg tablet Take 1 tablet by mouth every afternoon. SUMAtriptan (IMITREX) 50 mg tablet Take 1-2 tabs at onset of headache, may repeat dose 2 hours later prn with a max dose of 200 mg per day vit no.124/iron/folic ( VITAMIN ORAL) Take by mouth. (Patient not taking: Reported on 04/14/2024) spironolactone (ALDACTONE) 50 mg tablet TAKE 1 TABLET BY MOUTH ONCE DAILY at the same time every day (Patient not taking: Reported on 10/19/2022) ondansetron (ZOFRAN) 8 mg tablet Take 1 Tablet (8 mg) by mouth every 8 hours as needed for Nausea for up to 21 days (Patient not taking: Reported on 04/14/2024) Azelaic Acid 15 % gel Apply to affected area. (Patient not taking: Reported on 10/19/2022) lisdexamfetamine (VYVANSE) 20 mg capsule Take 1 capsule by mouth once daily. (Patient not taking: Reported on 06/28/2021) FAMILY HISTORY Problem Relation Age of Onset Hypertension Paternal Grandmother Prostate Cancer Paternal Grandfather Social History Tobacco Use Smoking status: Never Passive exposure: Yes Smokeless tobacco: Never Tobacco comments: dad and mom smokes outside Substance Use Topics Alcohol use: No Drug use: No BP 128/82 Pulse 86 Temp 36.8 ?C (98.2 ?F) Resp 16 Wt 86.1 kg (189 lb 13.1 oz) SpO2 98% Review of Systems Constitutional: Negative for chills, fever and malaise/fatigue. HENT: Negative for congestion, ear discharge, ear pain, sinus pain and sore throat. Dental swelling Eyes: Negative for blurred vision, pain, discharge and redness. Respiratory: Negative for cough, hemoptysis, sputum production, shortness of breath, wheezing and stridor. Cardiovascular: Negative for chest pain. Gastrointestinal: Negative for abdominal pain, diarrhea, nausea and vomiting. Musculoskeletal: Negative for myalgias. Skin: Negative for itching and rash. Neurological: Negative for dizziness and headaches. Objective Physical Exam Constitutional: General: She is not in acute distress. Appearance: She is not diaphoretic. HENT: Head: Normocephalic. Jaw: No trismus, tenderness, swelling or pain on movement. Comments: Mild facial swelling noted. No erythema. Mouth/Throat: Mouth: Mucous membranes are moist. Pharynx: Oropharynx is clear. Uvula midline. No pharyngeal swelling, oropharyngeal exudate, posterior oropharyngeal erythema or uvula swelling. Comments: No erythema noted. No evidence of bacterial infection. Eyes: Conjunctiva/sclera: Conjunctivae normal. Pupils: Pupils are equal, round, and reactive to light. Cardiovascular: Rate and Rhythm: Normal rate and regular rhythm. Heart sounds: Normal heart sounds. Pulmonary: Effort: Pulmonary effort is normal. No tachypnea, accessory muscle usage or respiratory distress. Breath sounds: Normal breath sounds. No stridor. No wheezing, rhonchi or rales. Abdominal: Palpations: Abdomen is soft. Musculoskeletal: Cervical back: Normal range of motion and neck supple. No edema, erythema, rigidity or tenderness. No pain with movement. Normal range of motion. Lymphadenopathy: Cervical: No cervical adenopathy. Skin: General: Skin is warm and dry. Neurological: Mental Status: She is alert and oriented to person, place, and time. ASSESSMENT/PLAN: 1. Pain, dental - ICD9: 525.9, ICD10: K08.8 (more content not included)... Normal [facility] Absolute lymphocyte countOrd ered By: Alisha Heller on 12-12-2023 Lymphocytes Auto (Unsp spec) [#/Vol] 2.00 10*3/uL 0.83-4.51 [facility] Automated lymphocyte count a s percentage of total leukocytesOrdered By: Alisha Heller on 12-12-2023 Lymphocytes/100 WBC Auto (Unsp spec) 36.5 % 19-41 [facility] Basophil percentageOrdered B y: Alisha Heller on 12-12-2023 Basophils/100 WBC (Bld) 0.2 % 0-1 [facility] Eosinophils/100 WBC (Bld) 2.7 % 0-5 [facility] Hemoglobin (Bld) [Mass/Vol] 13.3 g/dL 12.0-15.0 [facility] Monocytes/100 WBC (Bld) 8.0 % 0-10 [facility] Neutrophils (Bld) [#/Vol] 2.9 10*3/uL 2.0-7.7 [facility] Neutrophils/100 WBC (Bld) 52.6 % 47-70 [facility] WBC (Bld) [#/Vol] 5.5 10*3/uL 4.4-11.0 [facility] Determination of erythrocyte mean corpuscular volume (MCV)Ordered By: Alisha Heller on 12-12-2023 MCV (RBC) [Entitic vol] 86.8 fL 81-99 [facility] Erythrocyte distribution wid th ratioOrdered By: Alisha Arron on 12-12-2023 Erythrocyte distribution width (RBC) [Ratio] 13.7 % 11.6-14.6 [facility] Erythrocyte distribution wid th standard deviationOrdered By: [facility] on 12-12-2023 Erythrocyte distribution width (RBC) [Entitic vol] 43.8 fL 35.1-43.9 [facility] Hematocrit Auto (Bld) [Volum e fraction]Ordered By: Alisha Heller on 12-12-2023 Hematocrit (Bld) [Volume fraction] 42.0 % 37-47 [facility] Immature granulocytes/100 WB C Auto (Bld)Ordered By: [facility] on 12-12-2023 Immature granulocytes/100 WBC (Bld) 0.000 % 0.0-0.9 [facility] Comment on above: IG% - Immature Granu locytes (promyelocytes, myelocytes and metamyelocytes) > 1% indicates that a LEFT SHIFT is Present. Laboratory - Chemistry and C hemistry - challengeOrdered By: Alisha Heller on 12-12-2023 Ferritin [Mass/Vol] 25 ng/mL 8-252 [facility] Transferrin [Mass/Vol] 289 mg/dL 192-364 [facility] Comment on above: Performed at: [address] [id number] Director: Marcus Davis PhD, Phone: [phone] Laboratory - Hematology and Cell countsOrdered By: Alisha Heller on 12-12-2023 MCH (RBC) [Entitic mass] 27.5 pg 27.0-32.0 [facility] MCHC (RBC) [Mass/Vol] 31.7 g/dL 32-36 [facility] Nucleated RBC/100 WBC (Bld) [Ratio] 0 % 0-5 [facility] Platelet mean volume (Bld) [Entitic vol] 11.4 fL 6.2-12.0 [facility] Platelets (Bld) [#/Vol] 204 10*3/uL 150-450 [facility] RBC Auto (Bld) [#/Vol]Ordere d By: Alisha Heller on 12-12-2023 RBC (Bld) [#/Vol] 4.84 10*6/uL 4.2-5.4 [facility] Absolute lymphocyte countOrd ered By: Diego Oscar on 07-01-2023 Lymphocytes Auto (Unsp spec) [#/Vol] 1.93 10*3/uL 0.83-4.51 [facility] Basophil percentageOrdered B y: Diego Oscar on 07-01-2023 Basophil percentage 4.3 mg/dL 2.5-4.9 [facility] Basophils/100 WBC (Bld) 0.4 % 0-1 [facility] Bilirubin [Mass/Vol] 0.60 mg/dL 0.20-1.00 [facility] Comment on above: For patients on eltr ombopag therapy, use of Dimension [place] TBIL is not recommended. Chloride [Moles/Vol] 109 mmol/L 98-107 [facility] Eosinophils/100 WBC (Bld) 4.0 % 0-5 [facility] Glucose [Mass/Vol] 71 mg/dL 74-106 [facility] Neutrophils (Bld) [#/Vol] 1.9 10*3/uL 2.0-7.7 [facility] Neutrophils/100 WBC (Bld) 41.5 % 47-70 [facility] Potassium [Moles/Vol] 3.8 mmol/L 3.5-5.1 [facility] Protein [Mass/Vol] 6.5 g/dL 6.4-8.2 [facility] Sodium [Moles/Vol] 141 mmol/L 136-145 [facility] WBC (Bld) [#/Vol] 4.5 10*3/uL 4.4-11.0 [facility] Blood erythrocytes count (nu mber/volume)Ordered By: Diego Oscar on 07-01-2023 RBC (Bld) [#/Vol] 4.31 10*6/uL 4.2-5.4 [facility] Blood hemoglobin measurement (mass/volume)Ordered By: Diego Oscar on 07-01-2023 Hemoglobin (Bld) [Mass/Vol] 11.5 g/dL 12.0-15.0 [facility] Blood lymphocytes/100 leukoc ytesOrdered By: Diego Oscar on 07-01-2023 Lymphocytes/100 WBC (Bld) 42.8 % 19-41 [facility] Blood monocytes/100 leukocyt esOrdered By: Diego Oscar on 07-01-2023 Monocytes/100 WBC (Bld) 11.1 % 0-10 [facility] Blood platelet mean volumeOr dered By: Diego Oscar on 07-01-2023 Platelet mean volume (Bld) [Entitic vol] 11.5 fL 6.2-12.0 [facility] Determination of erythrocyte mean corpuscular volume (MCV)Ordered By: Diego Oscar on 07-01-2023 MCV (RBC) [Entitic vol] 88.2 fL 81-99 [facility] Hematocrit Auto (Bld) [Volum e fraction]Ordered By: Diego Oscar on 07-01-2023 Hematocrit (Bld) [Volume fraction] 38.0 % 37-47 [facility] Laboratory - Chemistry and C hemistry - challengeOrdered By: Diego Oscar on 07-01-2023 ALP [Catalytic activity/Vol] 308 U/L 45-117 [facility] ALT [Catalytic activity/Vol] 361 U/L 13-56 [facility] CO2 [Moles/Vol] 26.0 mmol/L 21.0-32.0 [facility] Globulin (S) [Mass/Vol] 2.8 g/dL 2.2-4.2 [facility] Lipase [Catalytic activity/Vol] 17 U/L 13-75 [facility] Comment on above: Please note:LIPASE r evised reference range effective 22. New Lipase methodology. Expected to produce lower values than the previous assay method. NEW Reference Range: 13 - 75 U/L Magnesium [Mass/Vol] 2.1 mg/dL 1.6-2.6 [facility] Urea nitrogen/Creatinine [Mass ratio] 11.9 mg/mg 10-20 [facility] Laboratory - Hematology and Cell countsOrdered By: Diego Oscar on 07-01-2023 Erythrocyte distribution width (RBC) [Entitic vol] 45.5 fL 35.1-43.9 [facility] Erythrocyte distribution width (RBC) [Ratio] 14.0 % 11.6-14.6 [facility] Immature granulocytes/100 WBC (Bld) 0.200 % 0.0-0.9 [facility] Comment on above: IG% - Immature Granu locytes (promyelocytes, myelocytes and metamyelocytes) > 1% indicates that a LEFT SHIFT is Present. MCH (RBC) [Entitic mass] 26.7 pg 27.0-32.0 [facility] Nucleated RBC/100 WBC (Bld) [Ratio] 0 % 0-5 [facility] MCHC Auto (RBC) [Mass/Vol]Or dered By: Diego Oscar on 07-01-2023 MCHC (RBC) [Mass/Vol] 30.3 g/dL 32-36 [facility] No Panel InformationOrdered By: Diego Oscar on 07-01-2023 Estimated Creatinine Clearance Calc 88.37 ml/min [facility] Estimated GFR (MDRD) Amer 111 mL/min >60 [facility] Comment on above: GFR Calc Estimated GFR (MDRD) Non-Af Amer 92 mL/min >60 [facility] Comment on above: Non- GFR Calc Platelets bldOrdered By: Luis Angel Oscar on 07-01-2023 Platelets (Bld) [#/Vol] 178 10*3/uL 150-450 [facility] Serum or plasma albumin jewel urement (mass/volume)Ordered By: Diego Oscar on 07-01-2023 Albumin [Mass/Vol] 3.7 g/dL 3.2-5.0 [facility] Serum or plasma albumin/glob ulin mass ratioOrdered By: Diego Oscar on 07-01-2023 Albumin/Globulin [Mass ratio] 1.3 {ratio} 0.9-2.4 [facility] Serum or plasma calcium jewel urement (mass/volume)Ordered By: Diego Oscar on 07-01-2023 Calcium [Mass/Vol] 8.5 mg/dL 8.5-10.1 [facility] Serum or plasma creatinine m easurement (mass/volume)Ordered By: Diego Oscar on 07-01-2023 Creatinine [Mass/Vol] 0.84 mg/dL 0.55-1.02 [facility] Comment on above: The validity of the calculated GFR & GFRAA in patients over 70 years has not been determined. Clinical correlation is essential. Serum or plasma urea nitroge n measurement (mass/volume)Ordered By: Diego Oscar on 07-01-2023 Urea nitrogen [Mass/Vol] 10 mg/dL 7- [facility] Thin prep Papanicolaou smear with manual screeningOrdered By: Diego Oscar on 07-01-2023 Thin prep Papanicolaou smear with manual screening 188 U/L 15-37 [facility] Thin prep Papanicolaou smear with manual screening 6 5-15 [facility] Absolute lymphocyte countOrd ered By: Cr Hudson on 06-30-2023 Lymphocytes Auto (Unsp spec) [#/Vol] 0.55 10*3/uL 0.83-4.51 [facility] Basophil percentageOrdered B y: Cr Hudson on 06-30-2023 Basophil percentage 0 SEEN /hpf 0-5 [facility] Basophils/100 WBC (Bld) 0.5 % 0-1 [facility] Bilirubin [Mass/Vol] 2.00 mg/dL 0.20-1.00 [facility] Comment on above: For patients on eltr ombopag therapy, use of Dimension [place] TBIL is not recommended. Chloride [Moles/Vol] 107 mmol/L 98-107 [facility] Eosinophils/100 WBC (Bld) 0.8 % 0-5 [facility] Glucose [Mass/Vol] 151 mg/dL 74-106 [facility] Comment on above: Fasting Glucose resu lt greater than or equal to 126 mg/dL suggests DIABETES MELLITUS per A.D.A. criteria. Neutrophils (Bld) [#/Vol] 5.3 10*3/uL 2.0-7.7 [facility] Neutrophils/100 WBC (Bld) 82.9 % 47-70 [facility] Potassium [Moles/Vol] 3.7 mmol/L 3.5-5.1 [facility] Protein [Mass/Vol] 7.9 g/dL 6.4-8.2 [facility] Sodium [Moles/Vol] 139 mmol/L 136-145 [facility] WBC (Bld) [#/Vol] 6.4 10*3/uL 4.4-11.0 [facility] Bilirubin Test strip Ql (U)O rdered By: Cr Hudson on 06-30-2023 Bilirubin Ql (U) 3 mg/dL Negative [facility] Comment on above: COLOR OF URINE MAY A FFECT DIPSTICK RESULTS. Blood erythrocytes count (nu mber/volume)Ordered By: Cr Hudson on 06-30-2023 RBC (Bld) [#/Vol] 5.10 10*6/uL 4.2-5.4 [facility] Blood hemoglobin measurement (mass/volume)Ordered By: Cr Hudson on 06-30-2023 Hemoglobin (Bld) [Mass/Vol] 13.5 g/dL 12.0-15.0 [facility] Blood lymphocytes/100 leukoc ytesOrdered By: Cr Hudson on 06-30-2023 Lymphocytes/100 WBC (Bld) 8.6 % 19-41 [facility] Blood manual differential co mment interpretation (narrative result)Ordered By: Cr Hudson on 06-30-2023 Manual differential comment Rob (Bld) [Interp] SCANNED [facility] Comment on above: LYMPHOPENIA NOTED Blood monocytes/100 leukocyt esOrdered By: Cr Hudson on 06-30-2023 Monocytes/100 WBC (Bld) 6.9 % 0-10 [facility] Blood platelet mean volumeOr dered By: Cr Hudson on 06-30-2023 Platelet mean volume (Bld) [Entitic vol] 11.2 fL 6.2-12.0 [facility] Determination of erythrocyte mean corpuscular volume (MCV)Ordered By: Cr Hudson on 06-30-2023 MCV (RBC) [Entitic vol] 85.9 fL 81-99 [facility] Direct bilirubinOrdered By: Cr Hudson on 06-30-2023 Bilirubin.direct [Mass/Vol] 1.49 mg/dL 0.00-0.30 [facility] Hematocrit Auto (Bld) [Volum e fraction]Ordered By: Cr Hudson on 06-30-2023 Hematocrit (Bld) [Volume fraction] 43.8 % 37-47 [facility] Ketones Test strip Ql (U)Ord ered By: Cr Hudson on 06-30-2023 Ketones Ql (U) 5 mg/dl Negative [facility] Laboratory - Chemistry and C hemistry - challengeOrdered By: Paul Mckeon on 06-30-2023 HCG ( test) Ql (U) Negative [facility] Comment on above: Very dilute urine sp ecimens, as indicated by a low specificgravity, may not contain school admissions representative levels of hCG. If is still suspected, a first morning urinespecimen should be collected 48 hours later and tested. Laboratory - Chemistry and C hemistry - challengeOrdered By: Cr Hudson on 06-30-2023 ALP [Catalytic activity/Vol] 407 U/L 45-117 [facility] ALT [Catalytic activity/Vol] 399 U/L 13-56 [facility] CO2 [Moles/Vol] 27.0 mmol/L 21.0-32.0 [facility] Globulin (S) [Mass/Vol] 3.7 g/dL 2.2-4.2 [facility] Lipase [Catalytic activity/Vol] 65 U/L 13-75 [facility] Comment on above: Please note:LIPASE r evised reference range effective 22. New Lipase methodology. Expected to produce lower values than the previous assay method. NEW Reference Range: 13 - 75 U/L Urea nitrogen/Creatinine [Mass ratio] 13.0 mg/mg 10-20 [facility] Laboratory - Hematology and Cell countsOrdered By: Cr Hudson on 06-30-2023 Erythrocyte distribution width (RBC) [Entitic vol] 43.7 fL 35.1-43.9 [facility] Erythrocyte distribution width (RBC) [Ratio] 13.8 % 11.6-14.6 [facility] Immature granulocytes/100 WBC (Bld) 0.300 % 0.0-0.9 [facility] Comment on above: IG% - Immature Granu locytes (promyelocytes, myelocytes and metamyelocytes) > 1% indicates that a LEFT SHIFT is Present. MCH (RBC) [Entitic mass] 26.5 pg 27.0-32.0 [facility] Nucleated RBC/100 WBC (Bld) [Ratio] 0 % 0-5 [facility] MCHC Auto (RBC) [Mass/Vol]Or dered By: Cr Hudson on 06-30-2023 MCHC (RBC) [Mass/Vol] 30.8 g/dL 32-36 [facility] Mucus LM Ql (Urine sed)Order ed By: Cr Hudson on 06-30-2023 Mucus Ql (Urine sed) 0 SEEN /hpf [facility] Nitrite Test strip Ql (U)Ord ered By: Cr Hudson on 06-30-2023 Nitrite Ql (U) Negative Negative [facility] No Panel InformationOrdered By: Cr Hudson on 06-30-2023 Estimated Creatinine Clearance Calc 87.33 ml/min [facility] Estimated GFR (MDRD) Amer 110 mL/min >60 [facility] Comment on above: GFR Calc Estimated GFR (MDRD) Non-Af Amer 91 mL/min >60 [facility] Comment on above: Non- GFR Calc Platelets bldOrdered By: Vadim Hudson on 06-30-2023 Platelets (Bld) [#/Vol] 229 10*3/uL 150-450 [facility] Protein Test strip Ql (U)Ord ered By: Cr Hudson on 06-30-2023 Protein Ql (U) 30 mg/dl Negative [facility] Serum or plasma albumin jewel urement (mass/volume)Ordered By: Cr Hudson on 06-30-2023 Albumin [Mass/Vol] 4.2 g/dL 3.2-5.0 [facility] Serum or plasma calcium jewel urement (mass/volume)Ordered By: Cr Hudson on 06-30-2023 Calcium [Mass/Vol] 9.7 mg/dL 8.5-10.1 [facility] Serum or plasma creatinine m easurement (mass/volume)Ordered By: Cr Hudson on 06-30-2023 Creatinine [Mass/Vol] 0.85 mg/dL 0.55-1.02 [facility] Comment on above: The validity of the calculated GFR & GFRAA in patients over 70 years has not been determined. Clinical correlation is essential. Serum or plasma urea nitroge n measurement (mass/volume)Ordered By: Cr Hudson on 06-30-2023 Urea nitrogen [Mass/Vol] 11 mg/dL 7-18 [facility] Squamous epithelial cells de tection in urine sediment by light microscopyOrdered By: Cr Hudson on 06-30-2023 Epithelial cells.squamous LM Ql (Urine sed) 0-5 SEEN /hpf 5-10 [facility] Thin prep Papanicolaou smear with manual screeningOrdered By: Cr Hudson on 06-30-2023 Thin prep Papanicolaou smear with manual screening 636 U/L 15-37 [facility] Thin prep Papanicolaou smear with manual screening 5 5-15 [facility] Urine blood detectionOrdered By: Cr Hudson on 06-30-2023 RBC Ql (U) Negative Negative [facility] RBC Ql (U) 0 SEEN /hpf 0-5 [facility] Urine clarityOrdered By: Vadim Hudson on 06-30-2023 Clarity (U) Clear Clear [facility] Urine color determinationOrd ered By: Cr Hudson on 06-30-2023 Color (U) Yellow Yellow [facility] Urine glucose detectionOrder ed By: Cr Hudson on 06-30-2023 Glucose Ql (U) Normal mg/dl Normal [facility] Urine leukocyte esterase det ection by dipstickOrdered By: Cr Hudson on 06-30-2023 Leukocyte esterase Test strip Ql (U) 25 /ul Negative [facility] Urine pHOrdered By: Cr white on 06-30-2023 pH (U) 6.5 [pH] 5.0 - 8.0 [facility] Urine sediment bacteria coun t by microscopy (number/high power field)Ordered By: Cr Hudson on 06-30-2023 Bacteria LM.HPF (Urine sed) [#/Area] 1 /[HPF] None Seen [facility] Urine specific gravity measu rementOrdered By: Cr Hudson on 06-30-2023 Specific gravity (U) [Rel density] 1.020 1.002-1.030 [facility] Urobilinogen Auto test strip Ql (U)Ordered By: Cr Hudson on 06-30-2023 Urobilinogen Ql (U) 4 mg/dl Normal [facility] Absolute lymphocyte countOrd ered By: Negar Chavez on 05-07-2023 Lymphocytes Auto (Unsp spec) [#/Vol] 1.72 10*3/uL 0.83-4.51 [facility] Basophil percentageOrdered B y: Negar Chavez on 05-07-2023 Basophils/100 WBC (Bld) 0.3 % 0-1 [facility] Eosinophils/100 WBC (Bld) 0.4 % 0-5 [facility] Neutrophils (Bld) [#/Vol] 7.8 10*3/uL 2.0-7.7 [facility] Neutrophils/100 WBC (Bld) 77.1 % 47-70 [facility] WBC (Bld) [#/Vol] 10.1 10*3/uL 4.4-11.0 [facility] Blood erythrocytes count (nu mber/volume)Ordered By: Negar Chavez on 05-07-2023 RBC (Bld) [#/Vol] 4.16 10*6/uL 4.2-5.4 [facility] Blood hemoglobin measurement (mass/volume)Ordered By: Negar Chavez on 05-07-2023 Hemoglobin (Bld) [Mass/Vol] 11.6 g/dL 12.0-15.0 [facility] Blood lymphocytes/100 leukoc ytesOrdered By: Negar Chavez on 05-07-2023 Lymphocytes/100 WBC (Bld) 17.0 % 19-41 [facility] Blood monocytes/100 leukocyt esOrdered By: Negar Chavez on 05-07-2023 Monocytes/100 WBC (Bld) 4.9 % 0-10 [facility] Blood platelet mean volumeOr dered By: Negar Chavez on 05-07-2023 Platelet mean volume (Bld) [Entitic vol] 11.4 fL 6.2-12.0 [facility] Determination of erythrocyte mean corpuscular volume (MCV)Ordered By: Negar Chavez on 05-07-2023 MCV (RBC) [Entitic vol] 86.1 fL 81-99 [facility] Hematocrit Auto (Bld) [Volum e fraction]Ordered By: Negar Chavez on 05-07-2023 Hematocrit (Bld) [Volume fraction] 35.8 % 37-47 [facility] Laboratory - Hematology and Cell countsOrdered By: Negar Chavez on 05-07-2023 Erythrocyte distribution width (RBC) [Entitic vol] 42.9 fL 35.1-43.9 [facility] Erythrocyte distribution width (RBC) [Ratio] 14.0 % 11.6-14.6 [facility] Immature granulocytes/100 WBC (Bld) 0.300 % 0.0-0.9 [facility] Comment on above: IG% - Immature Granu locytes (promyelocytes, myelocytes and metamyelocytes) > 1% indicates that a LEFT SHIFT is Present. MCH (RBC) [Entitic mass] 27.9 pg 27.0-32.0 [facility] Nucleated RBC/100 WBC (Bld) [Ratio] 0 % 0-5 [facility] MCHC Auto (RBC) [Mass/Vol]Or dered By: Negar Chavez on 05-07-2023 MCHC (RBC) [Mass/Vol] 32.4 g/dL 32-36 [facility] Platelets bldOrdered By: Fidel Chavez on 05-07-2023 Platelets (Bld) [#/Vol] 158 10*3/uL 150-450 [facility] Serum Treponema species anti body detectionOrdered By: Negar Chavez on 05-07-2023 Treponema sp Ab Ql (S) Non-Reactive [facility] Basophil percentageOrdered B y: Cookie Coles on 05-01-2023 Basophil percentage 0-5 SEEN /hpf 0-5 [facility] Bilirubin Test strip Ql (U)O rdered By: Cookie Coles on 05-01-2023 Bilirubin Ql (U) Negative Negative [facility] Culture, urineOrdered By: Eliseo Coles on 05-01-2023 Bacteria identified Cx Nom (U) Culture exhibits no growth. [facility] Influenza virus A and B and SARS-CoV-2 (COVID-19) Ag panel - Upper respiratory specimOrdered By: Cookie Coles on 05-01-2023 SARS-CoV-2 (COVID-19) RNA KARIME+probe Ql (Resp) [facility] Ketones Test strip Ql (U)Ord ered By: Cookie Coles on 05-01-2023 Ketones Ql (U) 5 mg/dl Negative [facility] Mucus LM Ql (Urine sed)Order ed By: Cookie Coles on 05-01-2023 Mucus Ql (Urine sed) 0 SEEN /hpf [facility] Nitrite Test strip Ql (U)Ord ered By: Cookie Coles on 05-01-2023 Nitrite Ql (U) Negative Negative [facility] Protein Test strip Ql (U)Ord ered By: Cookie Coles on 05-01-2023 Protein Ql (U) 15 mg/dl Negative [facility] Squamous epithelial cells de tection in urine sediment by light microscopyOrdered By: Cookie Coles on 05-01-2023 Epithelial cells.squamous LM Ql (Urine sed) 0-5 SEEN /hpf 5-10 [facility] Urine blood detectionOrdered By: Cookie Coles on 05-01-2023 RBC Ql (U) Negative Negative [facility] RBC Ql (U) 0 SEEN /hpf 0-5 [facility] Urine clarityOrdered By: Rosemary Coles on 05-01-2023 Clarity (U) Sl. Cloudy Clear [facility] Urine color determinationOrd ered By: Cookie Cloes on 05-01-2023 Color (U) Yellow Yellow [facility] Urine glucose detectionOrder ed By: Cookie Coles on 05-01-2023 Glucose Ql (U) Normal mg/dl Normal [facility] Urine leukocyte esterase det ection by dipstickOrdered By: Cookie Coles on 05-01-2023 Leukocyte esterase Test strip Ql (U) 100 /ul Negative [facility] Urine pHOrdered By: Cookie Coles on 05-01-2023 pH (U) 7.0 [pH] 5.0 - 8.0 [facility] Urine sediment bacteria coun t by microscopy (number/high power field)Ordered By: Cookie Coles on 09-19-2023 Bacteria LM.HPF (Urine sed) [#/Area] 1 /[HPF] None Seen [facility] Urine specific gravity measu rementOrdered By: Cookie Coles on 05-01-2023 Specific gravity (U) [Rel density] 1.020 1.002-1.030 [facility] Urobilinogen Auto test strip Ql (U)Ordered By: Cookie Coles on 05-01-2023 Urobilinogen Ql (U) 1 mg/dl Normal [facility] Laboratory - Chemistry and C hemistry - challengeon 04-30-2023 Glucose Ql (U) Negative [facility] Laboratory - Urinalysison Protein Ql (U) Negative [facility] Laboratory - Chemistry and C hemistry - challengeon 04-24-2023 Glucose Ql (U) Negative [facility] Laboratory - Urinalysison Protein Ql (U) Trace [facility] Laboratory - Chemistry and C hemistry - challengeon 04-17-2023 Glucose Ql (U) Negative [facility] Laboratory - Urinalysison Protein Ql (U) Negative [facility] Laboratory - Chemistry and C hemistry - challengeon 04-09-2023 Glucose Ql (U) Negative [facility] Laboratory - Urinalysison Protein Ql (U) Negative [facility] No Panel InformationOrdered By: Amy Mesa on 04-09-2023 Group B Streptococcus Culture Group B Beta Streptococcus is not isolated. [facility] Group B Streptococcus Culture Group B Beta Streptococcus is not isolated. [facility] Laboratory - Chemistry and C hemistry - challengeon 03-26-2023 Glucose Ql (U) Negative [facility] Laboratory - Urinalysison Protein Ql (U) Negative [facility] Laboratory - Chemistry and C hemistry - challengeon 03-12-2023 Glucose Ql (U) Negative [facility] Laboratory - Urinalysison Protein Ql (U) Negative [facility] STREP A MOLECULAR (POC)on Procedural Control Valid [facility] Strep A (POCT) Negative Negative [facility] Gram stain for investigation of transfusion reactionOrdered By: Tiffanie Choe on 02-26-2023 Microscopic observation Gram stain Nom (Unsp spec) [facility] Laboratory - Chemistry and C hemistry - challengeon 02-26-2023 Glucose Ql (U) Negative [facility] Laboratory - Urinalysison Protein Ql (U) Negative [facility] No Panel Informationon 02-26 POC Bacterial Vaginitis (Rapid) Negative [facility] Thin prep Papanicolaou smear with manual screeningOrdered By: Tiffanie Choe on 02-26-2023 Thin prep Papanicolaou smear with manual screening Neisseria or beta-hemolytic Streptococcus isolated. [facility] Absolute lymphocyte countOrd ered By: Cookie Coles on 02-08-2023 Lymphocytes Auto (Unsp spec) [#/Vol] 1.67 10*3/uL 0.83-4.51 [facility] Basophil percentageOrdered B y: Cookie Coles on 02-08-2023 Basophils/100 WBC (Bld) 0.2 % 0-1 [facility] Eosinophils/100 WBC (Bld) 0.8 % 0-5 [facility] Neutrophils (Bld) [#/Vol] 6.8 10*3/uL 2.0-7.7 [facility] Neutrophils/100 WBC (Bld) 73.1 % 47-70 [facility] WBC (Bld) [#/Vol] 9.3 10*3/uL 4.4-11.0 [facility] Blood erythrocytes count (nu mber/volume)Ordered By: Cookie Coles on 02-08-2023 RBC (Bld) [#/Vol] 3.89 10*6/uL 4.2-5.4 [facility] Blood hemoglobin measurement (mass/volume)Ordered By: Cookie Coles on 02-08-2023 Hemoglobin (Bld) [Mass/Vol] 11.2 g/dL 12.0-15.0 [facility] Blood lymphocytes/100 leukoc ytesOrdered By: Cookie Coles on 02-08-2023 Lymphocytes/100 WBC (Bld) 18.0 % 19-41 [facility] Blood monocytes/100 leukocyt esOrdered By: Cookie Coles on 02-08-2023 Monocytes/100 WBC (Bld) 7.1 % 0-10 [facility] Blood platelet mean volumeOr dered By: Cookie Coles on 02-08-2023 Platelet mean volume (Bld) [Entitic vol] 10.4 fL 6.2-12.0 [facility] Determination of erythrocyte mean corpuscular volume (MCV)Ordered By: Cookie Coles on 02-08-2023 MCV (RBC) [Entitic vol] 88.2 fL 81-99 [facility] Gestational diabetes screen 1-hour screen with 50g oral glucose loadOrdered By: Cookie Coles on 02-08-2023 Glucose 1 Hr post 50 g glucose PO [Mass/Vol] 96 mg/dL 70-140 [facility] HIV 1 and HIV-2 antibody ass ay with HIV-1 p24 antigen detectionOrdered By: Cookie Coles on 02-08-2023 HIV 1+2 Ab+HIV1 p24 Ag IA Ql Non-Reactive Nonreactive [facility] Hematocrit Auto (Bld) [Volum e fraction]Ordered By: Cookie Coles on 02-08-2023 Hematocrit (Bld) [Volume fraction] 34.3 % 37-47 [facility] Laboratory - Chemistry and C hemistry - challengeon 02-08-2023 Glucose Ql (U) Negative [facility] - Hematology and Cell countsOrdered By: Cookie Coles on 02-08-2023 Erythrocyte distribution width (RBC) [Entitic vol] 42.4 fL 35.1-43.9 [facility] Erythrocyte distribution width (RBC) [Ratio] 13.0 % 11.6-14.6 [facility] Immature granulocytes/100 WBC (Bld) 0.800 % 0.0-0.9 [facility] Comment on above: IG% - Immature Granu locytes (promyelocytes, myelocytes and metamyelocytes) > 1% indicates that a LEFT SHIFT is Present. MCH (RBC) [Entitic mass] 28.8 pg 27.0-32.0 [facility] Nucleated RBC/100 WBC (Bld) [Ratio] 0 % 0-5 [facility] Laboratory - Urinalysison Protein Ql (U) Negative [facility] MCHC Auto (RBC) [Mass/Vol]Or dered By: Cookie Coles on 02-08-2023 MCHC (RBC) [Mass/Vol] 32.7 g/dL 32-36 [facility] Platelets bldOrdered By: Rosemary Coles on 02-08-2023 Platelets (Bld) [#/Vol] 169 10*3/uL 150-450 [facility] Serum Treponema species anti body detectionOrdered By: Cookie Coles on 02-08-2023 Treponema sp Ab Ql (S) Non-Reactive [facility] Laboratory - Chemistry and C hemistry - challengeon 01-10-2023 Glucose Ql (U) Negative [facility] Laboratory - Urinalysison Protein Ql (U) Negative [facility] Laboratory - Chemistry and C hemistry - challengeon 12-13-2022 Glucose Ql (U) Negative [facility] Laboratory - Urinalysison Protein Ql (U) Negative [facility] Laboratory - Chemistry and C hemistry - challengeon 11-15-2022 Glucose Ql (U) Negative [facility] Laboratory - Urinalysison Protein Ql (U) Negative [facility] No Panel InformationOrdered By: Dr. Chavez on 11-15-2022 Miscellaneous Test Comment MAILED SPECIMEN [facility] Absolute lymphocyte countOrd ered By: Dr. Chavez on 10-18-2022 Lymphocytes Auto (Unsp spec) [#/Vol] 2.42 10*3/uL 0.83-4.51 [facility] Basophil percentageOrdered B y: Dr. Chavez on 10-18-2022 Basophils/100 WBC (Bld) 0.4 % 0-1 [facility] Eosinophils/100 WBC (Bld) 1.3 % 0-5 [facility] Neutrophils (Bld) [#/Vol] 5.1 10*3/uL 2.0-7.7 [facility] Neutrophils/100 WBC (Bld) 61.6 % 47-70 [facility] WBC (Bld) [#/Vol] 8.3 10*3/uL 4.4-11.0 [facility] Blood erythrocytes count (nu mber/volume)Ordered By: Dr. hCavez on 10-18-2022 RBC (Bld) [#/Vol] 4.34 10*6/uL 4.2-5.4 [facility] Blood hemoglobin measurement (mass/volume)Ordered By: Dr. Chavez on 10-18-2022 Hemoglobin (Bld) [Mass/Vol] 12.3 g/dL 12.0-15.0 [facility] Blood lymphocytes/100 leukoc ytesOrdered By: Dr. Chavez on 10-18-2022 Lymphocytes/100 WBC (Bld) 29.1 % 19-41 [facility] Blood monocytes/100 leukocyt esOrdered By: Dr. Chavez on 10-18-2022 Monocytes/100 WBC (Bld) 7.2 % 0-10 [facility] Blood platelet mean volumeOr dered By: Dr. Chavez on 10-18-2022 Platelet mean volume (Bld) [Entitic vol] 10.5 fL 6.2-12.0 [facility] Determination of erythrocyte mean corpuscular volume (MCV)Ordered By: Dr. Chavez on 10-18-2022 MCV (RBC) [Entitic vol] 88.7 fL 81-99 [facility] Gestational diabetes screen 1-hour screen with 50g oral glucose loadOrdered By: Dr. Chavez on 10-18-2022 Glucose 1 Hr post 50 g glucose PO [Mass/Vol] 107 mg/dL 70-140 [facility] HIV 1 and HIV-2 antibody ass ay with HIV-1 p24 antigen detectionOrdered By: Dr. Chavez on 10-18-2022 HIV 1+2 Ab+HIV1 p24 Ag IA Ql Non-Reactive Nonreactive [facility] Hematocrit Auto (Bld) [Volum e fraction]Ordered By: Dr. Chavez on 10-18-2022 Hematocrit (Bld) [Volume fraction] 38.5 % 37-47 [facility] Laboratory - Chemistry and C hemistry - challengeon 10-18-2022 Glucose Ql (U) Negative [facility] Laboratory - Hematology and Cell countsOrdered By: Dr. Chavez on 10-18-2022 Erythrocyte distribution width (RBC) [Entitic vol] 42.6 fL 35.1-43.9 [facility] Erythrocyte distribution width (RBC) [Ratio] 13.1 % 11.6-14.6 [facility] Immature granulocytes/100 WBC (Bld) 0.400 % 0.0-0.9 [facility] Comment on above: IG% - Immature Granu locytes (promyelocytes, myelocytes and metamyelocytes) > 1% indicates that a LEFT SHIFT is Present. MCH (RBC) [Entitic mass] 28.3 pg 27.0-32.0 [facility] Nucleated RBC/100 WBC (Bld) [Ratio] 0 % 0-5 [facility] Laboratory - Urinalysison Protein Ql (U) Negative [facility] MCHC Auto (RBC) [Mass/Vol]Or dered By: Dr. Chavez on 10-18-2022 MCHC (RBC) [Mass/Vol] 31.9 g/dL 32-36 [facility] No Panel InformationOrdered By: Dr. Chavez on 10-18-2022 Hepatitis B Surface Antigen Non-Reactive Nonreactive [facility] Hepatitis C Antibody Non-Reactive Nonreactive [facility] Comment on above: Non Reactive: < 0.8 Equivocal: >/= 0.8 to < 1.0 Reactive: >/= 1.0The CDC recommends that a reactive/equivocal HCV antibody result be followed up by the HCV Nucleic Acid Amplificationtest (652069) Rubella IgG Antibody Reactive Nonreactive [facility] Comment on above: Antibody Results Int erpretation of Immune Status Non Reactive Presumed Non-Immune Equivocal Equivocal Reactive Presumed Immune Platelets bldOrdered By: Dr. Chavez on 10-18-2022 Platelets (Bld) [#/Vol] 199 10*3/uL 150-450 [facility] Serum Treponema species anti body detectionOrdered By: Dr. Chavez on 10-18-2022 Treponema sp Ab Ql (S) Non-Reactive [facility] Culture, urineOrdered By: Dr Oneyda Chavez on 10-04-2022 Bacteria identified Cx Nom (U) Positive [facility] Chlamydia trachomatis rRNA d etection by probe and target amplification methodOrdered By: Dr. Chavez on 10-02-2022 C. trachomatis rRNA KARIME+probe Ql (Unsp spec) Negative Negative [facility] Laboratory - Microbiology an d Antimicrobial susceptibilityOrdered By: Dr. Chavez on 10-02-2022 N. gonorrhoeae DNA KARIME+probe Ql (Unsp spec) Negative Negative [facility] Comment on above: Performed at: =[address]As[address] car[address] [id number] Director: Janelle Christine MD, Phone: [phone] [place] 04-05-2022 ALT [Catalytic activity/Vol] 16 U/L Normal 0-34 [facility] Comment on above: Order Comment: NOT F ASTING Release to patient->Automatic [id number]&Blood Performed By: #### A LT #### [place] [address] ALT [SGPT] (Lab Collect)on 0 04-05-2022 ALT [Catalytic activity/Vol] 16 U/L 0 - 34 U/L [facility] [place] 04-05-2022 AST [Catalytic activity/Vol] 17 U/L Normal 0-31 [facility] Comment on above: Order Comment: NOT F ASTING Release to patient->Automatic [id number]&Blood Performed By: #### A ST #### [place] [address] AST [SGOT] (Lab Collect)on 0 04-05-2022 AST [Catalytic activity/Vol] 17 U/L 0 - 31 U/L [facility] HCG, Serumon 04-05-2022 HCG, Serum Negative Normal [facility] Comment on above: Order Comment: Relea se to patient->Automatic (5 days after final result) [id number]&Blood Result Comment: Nonp regnant females and males-Negative females-Positive Performed By: #### H CGS #### [place] [address] Hemoglobin A1con 04-05-2022 HbA1c (Bld) [Mass fraction] 5.6 % Normal 0.0-5.6 [facility] Comment on above: Order Comment: NOT F ASTING Release to patient->Automatic [id number]&Blood Result Comment: Refe rence Interval: <5.7% 5.7-6.4% Prediabetes > or = 6.5% Diabetes Targets for diabetes management: Type I <7.5% Type II <7.0% Performed By: #### H BA1C #### [address] [address] Hemoglobin A1c (Lab Collect) on 04-05-2022 HbA1c Elph (Bld) [Mass fraction] 5.6 % 0 - 5.6 % [facility] Comment on above: Reference Interval: <5.7% 5.7-6.4% Prediabetes > or = 6.5% Diabetes Targets for diabetes management: Type I <7.5% Type II <7.0% NOT FASTING Release to patient->Automatic [facility] Lipid Panelon 04-05-2022 Cholesterol in LDL [Mass/Vol] 130 mg/dL High 0-109 [facility] Comment on above: Order Comment: NOT F ASTING Release to patient->Automatic 95150&Blood Performed By: #### L IPID #### [address] [address] Non-HDL Cholesterol 156 mg/dL High 0-119 [facility] Comment on above: Order Comment: NOT F ASTING Release to patient->Automatic 62012&Blood Performed By: #### L IPID #### [address] [address] Triglyceride [Mass/Vol] 127 mg/dL High 0-89 [facility] Comment on above: Order Comment: NOT F ASTING Release to patient->Automatic 80186&Blood Performed By: #### L IPID #### [address] [address] Cholesterol [Mass/Vol] 208 mg/dL High 0-169 [facility] Comment on above: Order Comment: NOT F ASTING Release to patient->Automatic 29033&Blood Result Comment: Acce ptable (mg/dL): <170 Borderline-High (mg/dL): 170-199 High (mg/dL): > or = 200 Reference: Recommendations of the [place] [employer] (Pediatrics, Jul 2011, 128 (Supplement 5) D238-C968; DOI: 10.1542/peds.2009-2107C). Performed By: #### L IPID #### [address] [address] Cholesterol in HDL [Mass/Vol] 52 mg/dL Normal [facility] Comment on above: Order Comment: NOT F ASTING Release to patient->Automatic [id number]&Blood Result Comment: Low (mg/dL): <40 Borderline-Low (mg/dL): 40-45 Acceptable (mg/dL): >45 Performed By: #### L IPID #### [address] [address] Lipid Panel (Lab Collect)on 04-05-2022 Cholesterol [Mass/Vol] 208 mg/dL High 0 - 169 mg/dL [facility] Comment on above: Acceptable (mg/dL): <170 Borderline-High (mg/dL): 170-199 High (mg/dL): > or = 200 Reference: Recommendations of the [place] [employer] (Pediatrics, Jul 2011, 128 (Supplement 5) M071-E446; DOI: 10.1542/peds.2009-2107C). Cholesterol in HDL [Mass/Vol] 52 mg/dL [facility] Comment on above: Low (mg/dL): <40 Borderline-Low (mg/dL): 40-45 Acceptable (mg/dL): >45 Cholesterol in LDL [Mass/Vol] 130 mg/dL High 0 - 109 mg/dL [facility] Interpretation and review of laboratory results Abnormal [facility] Non-HDL Cholesterol 156 mg/dL High 0 - 119 mg/dL [facility] Triglyceride [Mass/Vol] 127 mg/dL High 0 - 89 mg/dL [facility] No Panel Informationon 04-05 NOT FASTING Release to patient->Automatic [facility] hCG, serumon 04-05-2022 HCG, serum Negative mIU/mL [facility] Comment on above: Non females and males-Negative females-Positive Release to patient->Automatic (5 days after final result) [facility] Progress Noteon 04-04-2022 [employer] Aut[employer] Interface Message Text Patient ID: Lucy Anderson is a 17 y.o. female. Her chief complaint(s) include: Menstrual Problem (3 weeks late on period, spotting started yesterday off and on blood clots. ) Assessment 1. Other hyperlipidemia 2. Encounter for test, result unknown Plan Lucy was seen today for menstrual problem. Diagnoses and all orders for this visit: Other hyperlipidemia - Lipid Panel (Lab Collect); Future - Hemoglobin A1c (Lab Collect); Future - ALT [SGPT] (Lab Collect); Future - AST [SGOT] (Lab Collect); Future Encounter for test, result unknown - POCT urine HCG - hCG, serum; Future No follow-ups on file. Subjective HPI Comments: Last period ended 03/10 but was light. Again started period 04/03 but again seems light. Concerned prior to period for , had breast soreness. Not interested in control at this point. Has been sexually active within the last 5 days. Urine HCG was negative. Likely accurate as Josie is currently on her period. Discussed obtaining serum HCG as backup to assure not . Also, strongly encouraged her to seek [employer] care for future similar concerns. She is unaccompanied. Menstrual Problem Primary Care Review of Systems Objective Vital Signs 04/04/22 1121 Temp: 36.8 C (98.2 F) TempSrc: Temporal Weight: 81.4 kg There is no height or weight on file to calculate BMI. Physical Exam Constitutional: She appears well. She is active. No distress. HENT: Head: Atraumatic. Ears: Right Ear: Tympanic membrane normal. Left Ear: Tympanic membrane normal. Mouth/Throat: Mucous membranes are moist. Eyes: Conjunctivae are normal. Cardiovascular: Normal rate and regular rhythm. Heart murmur not heard. Pulmonary/Chest: Breath sounds normal. There is normal air entry. Abdominal: She exhibits no distension. There is no hepatosplenomegaly. There is no abdominal tenderness. Neurological: She is alert. Last Result POCT urine HCG Collection Time: 04/04/22 11:35 AM Result Value Ref Range hCG Urine POCT Negative Negative Control Line *Present Clear Background *Present Lot Number [id number] Normal [facility] Basophil percentageon 2021 Bilirubin [Mass/Vol] 0.20 mg/dL 0.20-1.00 [facility] Work Phone: Comment on above: For patients on eltr ombopag therapy, use of Dimension [place] TBIL is not recommended. Cholesterol [Mass/Vol] 256 mg/dL <200 [facility] Work Phone: Comment on above: <200 mg/dL Desirable 200-240 mg/dL Borderline >240 mg/dL High Risk Protein [Mass/Vol] 7.5 g/dL 6.4-8.2 [facility] Work Phone: [phone] Triglyceride [Mass/Vol] 133 mg/dL [facility] Work Phone: [phone] Comment on above: The drugs N-Acetylcy steine and Metamizole may falsely depress this assay.Serum Triglycerides Reference Interval Normal <150 mg/dL Borderline high 150 - 199 mg/dL High 200 - 499 mg/dL Very High > or = 500 mg/dL Direct bilirubinon 2 Bilirubin.direct [Mass/Vol] 0.10 mg/dL 0.00-0.30 [facility] Work Phone: [phone] Laboratory - Chemistry and C hemistry - challengeon 12-05-2021 ALP [Catalytic activity/Vol] 128 U/L 47-119 [facility] Work Phone: [phone] ALT [Catalytic activity/Vol] 42 U/L 13-56 [facility] Work Phone: [phone] Globulin (S) [Mass/Vol] 3.6 g/dL 2.2-4.2 [facility] Work Phone: [phone] Serum or plasma albumin jewel urement (mass/volume)on 12-05-2021 Albumin [Mass/Vol] 3.9 g/dL 3.2-5.0 [facility] Work Phone: [phone] Serum or plasma cholesterol in HDL measurement (mass/volume)on 12-05-2021 Cholesterol in HDL [Mass/Vol] 47 mg/dL [facility] Work Phone: Comment on above: The drugs N-Acetylcy steine and Metamizole may falsely depress this assay. Reference Range HDL <40 mg/dL Low HDL Cholesterol HDL >or= 60 mg/dL High HDL Cholesterol Serum or plasma cholesterol in VLDL measurement (mass/volume)on 12-05-2021 Cholesterol in VLDL [Mass/Vol] 27 mg/dL 5-40 [facility] Work Phone: [phone] Serum or plasma low density lipoprotein (LDL) cholesterol measurement (mass/volume)on 12-05-2021 Cholesterol in LDL [Mass/Vol] 182 mg/dL 0-130 [facility] Work Phone: Thin prep Papanicolaou smear with manual screeningon 12-05-2021 Thin prep Papanicolaou smear with manual screening 27 U/L 15-37 [facility] Work Phone: Absolute lymphocyte counton 10-07-2021 Lymphocytes Auto (Unsp spec) [#/Vol] 1.73 10*3/uL 0.83-4.51 [facility] Work Phone: Basophil percentageon 2021 Basophils/100 WBC (Bld) 0.7 % 0-1 [facility] Work Phone: [phone] Bilirubin [Mass/Vol] 0.30 mg/dL 0.20-1.00 [facility] Work Phone: [phone] Comment on above: For patients on eltr ombopag therapy, use of Dimension [place] TBIL is not recommended. Cholesterol [Mass/Vol] 184 mg/dL <200 [facility] Work Phone: Comment on above: <200 mg/dL Desirable 200-240 mg/dL Borderline >240 mg/dL High Risk Eosinophils/100 WBC (Bld) 1.1 % 0-3 [facility] Work Phone: [phone] Neutrophils (Bld) [#/Vol] 2.2 10*3/uL 2.0-7.7 [facility] Work Phone: [phone] Neutrophils/100 WBC (Bld) 49.9 % 34-64 [facility] Work Phone: [phone] Protein [Mass/Vol] 7.8 g/dL 6.4-8.2 [facility] Work Phone: [phone] Triglyceride [Mass/Vol] 164 mg/dL [facility] Work Phone: [phone] Comment on above: The drugs N-Acetylcy steine and Metamizole may falsely depress this assay.Serum Triglycerides Reference Interval Normal <150 mg/dL Borderline high 150 - 199 mg/dL High 200 - 499 mg/dL Very High > or = 500 mg/dL WBC (Bld) [#/Vol] 4.4 10*3/uL 4.5-13.0 [facility] Work Phone: [phone] Blood erythrocytes count (nu mber/volume)on 10-07-2021 RBC (Bld) [#/Vol] 4.85 10*6/uL 4.1-4.8 [facility] Work Phone: [phone] Blood hemoglobin measurement (mass/volume)on 10-07-2021 Hemoglobin (Bld) [Mass/Vol] 13.7 g/dL 12.0-15.0 [facility] Work Phone: Blood lymphocytes/100 leukoc yteson 10-07-2021 Lymphocytes/100 WBC (Bld) 39.1 % 25-45 [facility] Work Phone: [phone] Blood monocytes/100 leukocyt eson 10-07-2021 Monocytes/100 WBC (Bld) 9.0 % 3-6 [facility] Work Phone: [phone] Blood platelet mean volumeon 10-07-2021 Platelet mean volume (Bld) [Entitic vol] 10.6 fL 6.2-12.0 [facility] Work Phone: Determination of erythrocyte mean corpuscular volume (MCV)on 10-07-2021 MCV (RBC) [Entitic vol] 84.7 fL 78-96 [facility] Work Phone: [phone] Direct bilirubinon Bilirubin.direct [Mass/Vol] 0.10 mg/dL 0.00-0.30 [facility] Work Phone: [phone] Hematocrit Auto (Bld) [Volum e fraction]on 10-07-2021 Hematocrit (Bld) [Volume fraction] 41.1 % 37-46 [facility] Work Phone: [phone] Laboratory - Chemistry and C hemistry - challengeon 10-07-2021 ALP [Catalytic activity/Vol] 150 U/L 47-119 [facility] Work Phone: [phone] ALT [Catalytic activity/Vol] 50 U/L 13-56 [facility] Work Phone: [phone] Globulin (S) [Mass/Vol] 3.9 g/dL 2.2-4.2 [facility] Work Phone: [phone] Laboratory - Hematology and Cell countson 10-07-2021 Erythrocyte distribution width (RBC) [Entitic vol] 41.3 fL 35.1-43.9 [facility] Work Phone: [phone] Erythrocyte distribution width (RBC) [Ratio] 13.3 % 11.6-14.6 [facility] Work Phone: [phone] Immature granulocytes/100 WBC (Bld) 0.200 % 0.0-0.9 [facility] Work Phone: [phone] Comment on above: IG% - Immature Granu locytes (promyelocytes, myelocytes and metamyelocytes) > 1% indicates that a LEFT SHIFT is Present. MCH (RBC) [Entitic mass] 28.2 pg 25.0-35.0 [facility] Work Phone: [phone] Nucleated RBC/100 WBC (Bld) [Ratio] 0 % 0-5 [facility] Work Phone: [phone] MCHC Auto (RBC) [Mass/Vol]on 10-07-2021 MCHC (RBC) [Mass/Vol] 33.3 g/dL 32-36 [facility] Work Phone: [phone] Platelets bldon 10-07-2021 Platelets (Bld) [#/Vol] 195 10*3/uL 150-450 [facility] Work Phone: Serum or plasma albumin jewel urement (mass/volume)on 10-07-2021 Albumin [Mass/Vol] 3.9 g/dL 3.2-5.0 [facility] Work Phone: Serum or plasma cholesterol in HDL measurement (mass/volume)on 10-07-2021 Cholesterol in HDL [Mass/Vol] 45 mg/dL [facility] Work Phone: Comment on above: The drugs N-Acetylcy steine and Metamizole may falsely depress this assay. Reference Range HDL <40 mg/dL Low HDL Cholesterol HDL >or= 60 mg/dL High HDL Cholesterol Serum or plasma cholesterol in VLDL measurement (mass/volume)on 10-07-2021 Cholesterol in VLDL [Mass/Vol] 33 mg/dL 5-40 [facility] Work Phone: Serum or plasma low density lipoprotein (LDL) cholesterol measurement (mass/volume)on 10-07-2021 Cholesterol in LDL [Mass/Vol] 106 mg/dL 0-130 [facility] Work Phone: Thin prep Papanicolaou smear with manual screeningon 10-07-2021 Thin prep Papanicolaou smear with manual screening 32 U/L 15-37 [facility] Work Phone: Vital Signs Date Time Vital Sign Value Performing Clinician Facility 11-25-2024 02:19-0400 Body temperature 98 [degF] Alisha Heller MD Work Phone: [facility] 11-25-2024 02:19-0400 Diastolic blood pressure 77 mm[Hg] Alisha Heller MD Work Phone: [facility] 11-25-2024 02:19-0400 Heart rate 90 /min Alisha Heller MD Work Phone: [facility] 11-25-2024 02:19-0400 Respiratory rate 18 /min Alisha Heller MD Work Phone: [facility] 11-25-2024 02:19-0400 SaO2% (BldA) [Mass fraction] 100 % Alisha Heller MD Work Phone: [facility] 11-25-2024 02:19-0400 Systolic blood pressure 103 mm[Hg] Alisha Heller MD Work Phone: [facility] 11-24-2024 22:46-0400 Body height 160.02 cm Alisha Heller MD Work Phone: [facility] 11-24-2024 22:46-0400 Body mass index (BMI) [Ratio] 32.4 kg/m2 Alisha Heller MD Work Phone: [facility] 11-24-2024 22:46-0400 Body weight 83 kg Alisha Heller MD Work Phone: [facility] 04-14-2024 09:58-0400 Body temperature 98.2 [degF] Jeremias Arauz 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 Work Phone: [facility] 04-14-2024 09:58-0400 Body weight 86.1 kg Jeremias Arauz 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 Work Phone: [facility] 04-14-2024 09:58-0400 Diastolic blood pressure 82 mm[Hg] Jeremias Pendlegeoff 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 Work Phone: [facility] 04-14-2024 09:58-0400 Heart rate 86 /min Jeremias Arauz 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 Work Phone: [facility] 04-14-2024 09:58-0400 Respiratory rate 16 /min Jeremias Arauz 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 Work Phone: [facility] 04-14-2024 09:58-0400 SaO2% (BldA) [Mass fraction] 98 % Jeremias Arauz 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 Work Phone: [facility] 04-14-2024 09:58-0400 Systolic blood pressure 128 mm[Hg] Jeremias Arauz 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 Work Phone: [facility] 09-11-2023 15:19-0500 Body height 160.02 cm [employer] WORKER-C Marine Brittny BODY AND FENDER WORKER Work Phone: 6(078)629-681002 [place] [address] 09-11-2023 15:12-0500 Body mass index (BMI) [Ratio] 35.1 kg/m2 [employer] AND [employer] WORKER-C Marine Callao BODY AND FENDER WORKER Work Phone: 6(484)741-658202 [place] [address] 09-11-2023 15:12-0500 Body weight 89.86 kg B[employer] AND [employer] WORKER-C Marine Callao BODY AND FENDER WORKER Work Phone: 8(564)798-849302 [place] [address] 09-11-2023 15:12-0500 Diastolic blood pressure 80 mm[Hg] B[employer] AND FENDER WORKER-C Marine Brittny BODY AND FENDER WORKER Work Phone: 5(099)287-326702 [place] [address] 09-11-2023 15:12-0500 Systolic blood pressure 132 mm[Hg] B[employer] AND FENDER WORKER-C Marine Brittny BODY AND FENDER WORKER Work Phone: 2(470)707-368902 [place] [address] 07-01-2023 19:58-0500 Body temperature 98.4 [degF] B[employer] AND FENDER WORKER-C Marine Callao BODY AND FENDER WORKER Work Phone: 9(612)072-416002 [place] [address] 07-01-2023 19:58-0500 Diastolic blood pressure 68 mm[Hg] B[employer] AND FENDER WORKER-C Marine Brittny BODY AND FENDER WORKER Work Phone: 5(982)210-880402 [place] [address] 07-01-2023 19:58-0500 Heart rate 84 /min B[employer] AND [employer]ER WORKER-C Marine Brittny BODY AND FENDER WORKER Work Phone: 2(483)013-020602 [place] [address] 07-01-2023 19:58-0500 SaO2% (BldA) [Mass fraction] 97 % B[employer] AND F[employer]ER WORKER-C Marine Callao BODY AND FENDER WORKER Work Phone: 3(052)242-210702 [place] [address] 07-01-2023 19:58-0500 Systolic blood pressure 113 mm[Hg] B[employer] AND FENDER WORKER-C Marine Callao BODY AND FENDER WORKER Work Phone: 5(849)913-375702 [place] [address] 07-01-2023 19:40-0500 Respiratory rate 16 /min B[employer] AND F[employer]ER WORKER-C Marine Brittny BODY AND FENDER WORKER Work Phone: 5(511)761-851502 [place] [address] 07-01-2023 16:45-0500 Inhaled oxygen flow rate 3 L/min B[employer] AND [employer] WORKER-C Marine Callao BODY AND FENDER WORKER Work Phone: 7(728)790-851702 [place] [address] 07-01-2023 06:19-0500 Body height 160.02 cm B[employer] AND FENDER WORKER-C Marine Callao BODY AND FENDER WORKER Work Phone: 9(898)831-275502 [place] [address] 07-01-2023 06:19-0500 Body mass index (BMI) [Ratio] 33.8 kg/m2 B[employer] AND F[employer]ER WORKER-C Marine Callao BODY AND FENDER WORKER Work Phone: 0(267)536-271402 [place] [address] 07-01-2023 06:19-0500 Body weight 86.6 kg B[employer] AND F[employer]ER WORKER-C Marine Brittny BODY AND FENDER WORKER Work Phone: 1(857)600-067402 [place] [address] 06-30-2023 10:00-0500 Respiratory rate 18 /min B[employer] AND F[employer]ER WORKER-C Marine Callao BODY AND FENDER WORKER Work Phone: 6(755)734-749102 [place] [address] 06-30-2023 06:14-0500 Body temperature 97.7 [degF] BODY AND FENDER WORKER-C Marine Callao BODY AND FENDER WORKER Work Phone: 4(036)081-284902 [place] [address] 06-30-2023 06:14-0500 Diastolic blood pressure 78 mm[Hg] BODY AND FENDER WORKER-C Marine Brittny BODY AND FENDER WORKER Work Phone: 5(116)921-584802 [place] [address] 06-30-2023 06:14-0500 Heart rate 78 /min B[employer] AND F[employer]ER WORKER-C Marine Callao BODY AND FENDER WORKER Work Phone: 8(147)379-122302 [place] [address] 06-30-2023 06:14-0500 SaO2% (BldA) [Mass fraction] 98 % B[employer] AND F[employer]ER WORKER-C Marine Brittny BODY AND FENDER WORKER Work Phone: 6(157)892-506802 [place] [address] 06-30-2023 06:14-0500 Systolic blood pressure 121 mm[Hg] BODY AND FENDER WORKER-C Marine Brittny BODY AND FENDER WORKER Work Phone: 7(767)461-129102 [place] [address] 06-30-2023 02:44-0500 Body height 160.02 cm BODY AND FENDER WORKER-C Marine Callao BODY AND FENDER WORKER Work Phone: 8(107)797-479102 [place] [address] 06-30-2023 02:44-0500 Body mass index (BMI) [Ratio] 33.3 kg/m2 B[employer] AND FENDER WORKER-C Marine Brittny BODY AND FENDER WORKER Work Phone: 3(775)223-560202 [place] [address] 06-30-2023 02:44-0500 Body weight 85.5 kg B[employer] AND F[employer]ER WORKER-C Marine Brittny BODY AND FENDER WORKER Work Phone: 1(397)371-853302 [place] [address] 06-15-2023 11:35-0400 Body mass index (BMI) [Ratio] 34.2 kg/m2 B[employer] AND FENDER WORKER-C Marine Brittny BODY AND FENDER WORKER Work Phone: 4(590)466-577702 [place] [address] 06-15-2023 11:35-0400 Body weight 87.54 kg B[employer] AND FENDER WORKER-C Marine Callao BODY AND FENDER WORKER Work Phone: 5(342)788-483302 [place] [address] 06-15-2023 11:35-0400 Diastolic blood pressure 80 mm[Hg] BODY AND FENDER WORKER-C Marine Brittny BODY AND FENDER WORKER Work Phone: 6(549)002-982202 [place] [address] 06-15-2023 11:35-0400 Systolic blood pressure 128 mm[Hg] BODY AND FENDER WORKER-C Marine Callao BODY AND FENDER WORKER Work Phone: 5(819)053-785502 [place] [address] 05-10-2023 08:34-0400 Body temperature 98.1 [degF] BODY AND FENDER WORKER-C Marine Callao BODY AND FENDER WORKER Work Phone: 9(382)612-441602 [place] [address] 05-10-2023 08:34-0400 Diastolic blood pressure 74 mm[Hg] BODY AND F[employer]ER WORKER-C Marine Brittny B[employer] AND FENDER WORKER Work Phone: 1(099)905-475202 [place] [address] 05-10-2023 08:34-0400 Heart rate 87 /min B[employer] AND F[employer]ER WORKER-C Marine Brittny BODY AND FENDER WORKER Work Phone: 8(438)299-792902 [place] [address] 05-10-2023 08:34-0400 Respiratory rate 16 /min B[employer] AND F[employer]ER WORKER-C Marine Callao BODY AND FENDER WORKER Work Phone: 9(364)089-184002 [place] [address] 05-10-2023 08:34-0400 SaO2% (BldA) [Mass fraction] 99 % B[employer] AND F[employer]ER WORKER-C Marine Callao BODY AND FENDER WORKER Work Phone: 0(339)313-868402 [place] [address] 05-10-2023 08:34-0400 Systolic blood pressure 111 mm[Hg] B[employer] AND FENDER WORKER-C Marine Callao BODY AND FENDER WORKER Work Phone: 1(453)971-650402 [place] [address] 05-07-2023 20:11-0400 Body mass index (BMI) [Ratio] 37.2 kg/m2 B[employer] AND F[employer]ER WORKER-C Marine Callao BODY AND FENDER WORKER Work Phone: 6(123)527-436602 [place] [address] 05-07-2023 20:11-0400 Body weight 95.3 kg B[employer] AND F[employer]ER WORKER-C Marine Callao BODY AND FENDER WORKER Work Phone: 4(555)035-373002 [place] [address] 05-07-2023 11:20-0400 Body mass index (BMI) [Ratio] 37.3 kg/m2 B[employer] AND F[employer]ER WORKER-C Marine Callao BODY AND FENDER WORKER Work Phone: 7(118)323-841202 [place] [address] 05-07-2023 11:20-0400 Body weight 95.42 kg B[employer] AND F[employer]ER WORKER-C Marine Callao BODY AND FENDER WORKER Work Phone: 8(356)122-980102 [place] [address] 05-07-2023 11:20-0400 Diastolic blood pressure 76 mm[Hg] BODY AND FENDER WORKER-C Marine Callao BODY AND FENDER WORKER Work Phone: 9(705)828-180102 [place] [address] 05-07-2023 11:20-0400 Systolic blood pressure 112 mm[Hg] BODY AND FENDER WORKER-C Marine Callao BODY AND FENDER WORKER Work Phone: 3(285)473-763202 [place] [address] 05-01-2023 17:36-0400 Diastolic blood pressure 82 mm[Hg] BODY AND FENDER WORKER-C Marine Callao BODY AND FENDER WORKER Work Phone: 7(850)496-099702 [place] [address] 05-01-2023 17:36-0400 Heart rate 93 /min B[employer] AND F[employer]ER WORKER-C Marine Brittny BODY AND FENDER WORKER Work Phone: 3(017)042-976102 [place] [address] 05-01-2023 17:36-0400 Systolic blood pressure 126 mm[Hg] BODY AND FENDER WORKER-C Marine Callao BODY AND FENDER WORKER Work Phone: 5(162)609-494202 [place] [address] 05-01-2023 17:31-0400 Body mass index (BMI) [Ratio] 37 kg/m2 B[employer] AND F[employer]ER WORKER-C Marine Callao BODY AND FENDER WORKER Work Phone: 6(179)892-380202 [place] [address] 05-01-2023 17:31-0400 Body weight 94.8 kg B[employer] AND FENDER WORKER-C Marine Callao BODY AND FENDER WORKER Work Phone: 7(330)828-218902 [place] [address] 04-30-2023 09:57-0400 Body mass index (BMI) [Ratio] 36.9 kg/m2 B[employer] AND FENDER WORKER-C Marine Brittny BODY AND FENDER WORKER Work Phone: 4(752)615-159102 [place] [address] 04-30-2023 09:57-0400 Body weight 94.57 kg B[employer] AND FENDER WORKER-C Marine Callao BODY AND FENDER WORKER Work Phone: 4(191)397-715302 [place] [address] 04-30-2023 09:57-0400 Diastolic blood pressure 75 mm[Hg] BODY AND FENDER WORKER-C Marine Callao BODY AND FENDER WORKER Work Phone: 2(918)407-590202 [place] [address] 04-30-2023 09:57-0400 Systolic blood pressure 111 mm[Hg] BODY AND FENDER WORKER-C Marine Callao BODY AND FENDER WORKER Work Phone: 8(324)300-993302 [place] [address] 04-24-2023 10:30-0400 Body mass index (BMI) [Ratio] 36.6 kg/m2 B[employer] AND F[employer]ER WORKER-C Marine Brittny BODY AND FENDER WORKER Work Phone: 0(043)226-021902 [place] [address] 04-24-2023 10:30-0400 Body weight 93.89 kg B[employer] AND FENDER WORKER-C Marine Brittny BODY AND FENDER WORKER Work Phone: 0(362)708-690702 [place] [address] 04-24-2023 10:30-0400 Diastolic blood pressure 76 mm[Hg] BODY AND FENDER WORKER-C Marine Callao BODY AND FENDER WORKER Work Phone: 6(314)794-798902 [place] [address] 04-24-2023 10:30-0400 Systolic blood pressure 125 mm[Hg] BODY AND FENDER WORKER-C Marine Callao BODY AND FENDER WORKER Work Phone: 3(475)478-878902 [place] [address] 04-17-2023 10:55-0400 Body mass index (BMI) [Ratio] 36.3 kg/m2 B[employer] AND F[employer]ER WORKER-C Marine Callao BODY AND FENDER WORKER Work Phone: 7(949)985-724902 [place] [address] 04-17-2023 10:55-0400 Body weight 93.09 kg B[employer] AND F[employer]ER WORKER-C Marine Brittny BODY AND FENDER WORKER Work Phone: 0(648)837-907902 [place] [address] 04-17-2023 10:55-0400 Diastolic blood pressure 82 mm[Hg] BODY AND FENDER WORKER-C Marine Callao BODY AND FENDER WORKER Work Phone: 8(658)001-165302 [place] [address] 04-17-2023 10:55-0400 Systolic blood pressure 126 mm[Hg] BODY AND FENDER WORKER-C Marine Callao BODY AND FENDER WORKER Work Phone: 5(910)834-511002 [place] [address] 04-09-2023 08:27-0400 Body height 160.02 cm B[employer] AND FENDER WORKER-C Marine Brittny BODY AND FENDER WORKER Work Phone: 1(113)017-219802 [place] [address] 04-09-2023 08:26-0400 Body mass index (BMI) [Ratio] 36.3 kg/m2 B[employer] AND FENDER WORKER-C Marine Callao BODY AND FENDER WORKER Work Phone: 1(266)279-278302 [place] [address] 04-09-2023 08:26-0400 Body weight 93.09 kg B[employer] AND FENDER WORKER-C Marine Callao BODY AND FENDER WORKER Work Phone: 4(167)787-153302 [place] [address] 04-09-2023 08:26-0400 Diastolic blood pressure 76 mm[Hg] BODY AND FENDER WORKER-C Marine Callao BODY AND FENDER WORKER Work Phone: 0(697)294-219602 [place] [address] 04-09-2023 08:26-0400 Systolic blood pressure 118 mm[Hg] BODY AND FENDER WORKER-C Marine Callao BODY AND FENDER WORKER Work Phone: 4(687)652-378302 [place] [address] 03-26-2023 11:21-0400 Body mass index (BMI) [Ratio] 35.8 kg/m2 B[employer] AND FENDER WORKER-C Marine Callao BODY AND FENDER WORKER Work Phone: 2(654)490-986102 [place] [address] 03-26-2023 11:21-0400 Body weight 91.68 kg BODY AND FENDER WORKER-C Marine Brittny BODY AND FENDER WORKER Work Phone: 0(908)966-855302 [place] [address] 03-26-2023 11:21-0400 Diastolic blood pressure 72 mm[Hg] BODY AND FENDER WORKER-C Marine Brittny BODY AND FENDER WORKER Work Phone: 2(328)672-755102 [place] [address] 03-26-2023 11:21-0400 Systolic blood pressure 109 mm[Hg] BODY AND FENDER WORKER-C Marine Callao BODY AND FENDER WORKER Work Phone: 0(793)408-304202 [place] [address] 03-12-2023 09:00-0400 Body mass index (BMI) [Ratio] 35.6 kg/m2 B[employer] AND F[employer]ER WORKER-C Marine Callao BODY AND FENDER WORKER Work Phone: 5(765)349-728502 [place] [address] 03-12-2023 09:00-0400 Body weight 91.17 kg BODY AND FENDER WORKER-C Marine Brittny BODY AND FENDER WORKER Work Phone: 0(273)354-260102 [place] [address] 03-12-2023 09:00-0400 Diastolic blood pressure 88 mm[Hg] BODY AND FENDER WORKER-C Marine Callao BODY AND FENDER WORKER Work Phone: 2(742)284-732302 [place] [address] 03-12-2023 09:00-0400 Systolic blood pressure 135 mm[Hg] BODY AND FENDER WORKER-C Marine Callao BODY AND FENDER WORKER Work Phone: 5(442)595-976902 [place] [address] 03-09-2023 08:16-0400 Body temperature 98.1 [degF] Jeremias Campbury 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 Work Phone: [facility] 03-09-2023 08:16-0400 Body weight 91.99 kg Jeremias Arauz 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 Work Phone: [facility] 03-09-2023 08:16-0400 Diastolic blood pressure 64 mm[Hg] Jeremias Campbury 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 Work Phone: [facility] 03-09-2023 08:16-0400 Heart rate 102 /min Jeremias Campbury 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 Work Phone: [facility] 03-09-2023 08:16-0400 Respiratory rate 16 /min [facility]ias [facility] 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 Work Phone: [facility] 03-09-2023 08:16-0400 SaO2% (BldA) [Mass fraction] 98 % Jeremias Campgeoff 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 Work Phone: [facility] 03-09-2023 08:16-0400 Systolic blood pressure 118 mm[Hg] [facility]ias [facility] 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 Work Phone: [facility] 02-26-2023 13:24-0400 Body mass index (BMI) [Ratio] 35.4 kg/m2 B[employer] AND FENDER WORKER-C Marine Bloom BODY AND FENDER WORKER Work Phone: [facility] 02-26-2023 13:24-0400 Body weight 90.77 kg BODY AND FENDER WORKER-C Marine Bloom BODY AND FENDER WORKER Work Phone: [facility] 02-26-2023 13:24-0400 Diastolic blood pressure 74 mm[Hg] BODY AND FENDER WORKER-C Marine Bustosborn BODY AND FENDER WORKER Work Phone: [facility] 02-26-2023 13:24-0400 Systolic blood pressure 112 mm[Hg] BODY AND FENDER WORKER-C Marine Bloom BODY AND FENDER WORKER Work Phone: [facility] 02-08-2023 10:57-0400 Body height 160.02 cm BODY AND FENDER WORKER-C Marine Bloom BODY AND FENDER WORKER Work Phone: 7(461)319-166474 [place] [address] 02-08-2023 10:57-0400 Body mass index (BMI) [Ratio] 35.5 kg/m2 B[employer] AND FENDER WORKER-C Marine Brittny BODY AND FENDER WORKER Work Phone: 5(997)689-483902 [place] [address] 02-08-2023 10:57-0400 Body weight 90.94 kg BODY AND FENDER WORKER-C Marine Callao BODY AND FENDER WORKER Work Phone: 1(510)077-094202 [place] [address] 02-08-2023 10:57-0400 Diastolic blood pressure 76 mm[Hg] BODY AND FENDER WORKER-C Marine Callao BODY AND FENDER WORKER Work Phone: 0(247)354-204702 [place] [address] 02-08-2023 10:57-0400 Systolic blood pressure 112 mm[Hg] BODY AND FENDER WORKER-C Marine Callao BODY AND FENDER WORKER Work Phone: 3(970)384-260902 [place] [address] 01-18-2023 09:16-0400 Body height 160.02 cm BODY AND FENDER WORKER-C Marine Callao BODY AND FENDER WORKER Work Phone: 4(017)467-789702 [place] [address] 01-18-2023 09:16-0400 Body mass index (BMI) [Percentile] Per age and sex 97 % BODY AND FENDER WORKER-C Marine Brittny BODY AND FENDER WORKER Work Phone: 5(995)055-242302 [place] [address] 01-18-2023 09:16-0400 Body mass index (BMI) [Ratio] 34.9 kg/m2 BODY AND FENDER WORKER-C Marine Brittny BODY AND FENDER WORKER Work Phone: 3(989)635-785602 [place] [address] 01-18-2023 09:16-0400 Body weight 89.35 kg BODY AND FENDER WORKER-C Marine Callao BODY AND FENDER WORKER Work Phone: 5(771)337-632202 [place] [address] 01-18-2023 08:53-0400 Diastolic blood pressure 65 mm[Hg] BODY AND FENDER WORKER-C Marine Brittny BODY AND FENDER WORKER Work Phone: 2(463)465-278302 [place] [address] 01-18-2023 08:53-0400 Heart rate 80 /min BODY AND FENDER WORKER-C Marine Brittny BODY AND FENDER WORKER Work Phone: 4(813)440-031802 [place] [address] 01-18-2023 08:53-0400 Systolic blood pressure 118 mm[Hg] BODY AND FENDER WORKER-C Marine Callao BODY AND FENDER WORKER Work Phone: 5(436)148-346402 [place] [address] 01-18-2023 08:52-0400 Body temperature 98.1 [degF] BODY AND FENDER WORKER-C Marine Callao BODY AND FENDER WORKER Work Phone: 0(540)404-124202 [place] [address] 01-18-2023 08:52-0400 SaO2% (BldA) [Mass fraction] 99 % BODY AND FENDER WORKER-C Marine Callao BODY AND FENDER WORKER Work Phone: 3(155)406-914102 [place] [address] 01-10-2023 16:01-0400 Body mass index (BMI) [Percentile] Per age and sex 96.5 % BODY AND FENDER WORKER-C Marine Callao BODY AND FENDER WORKER Work Phone: 6(431)020-449102 [place] [address] 01-10-2023 16:01-0400 Body mass index (BMI) [Ratio] 33.9 kg/m2 BODY AND FENDER WORKER-C Marine Brittny BODY AND FENDER WORKER Work Phone: 4(224)427-445102 [place] [address] 01-10-2023 16:01-0400 Body weight 86.8 kg BODY AND FENDER WORKER-C Marine Callao BODY AND FENDER WORKER Work Phone: 8(664)868-521602 [place] [address] 01-10-2023 16:01-0400 Diastolic blood pressure 76 mm[Hg] BODY AND FENDER WORKER-C Marine Callao BODY AND FENDER WORKER Work Phone: 5(332)503-275302 [place] [address] 01-10-2023 16:01-0400 Systolic blood pressure 126 mm[Hg] BODY AND FENDER WORKER-C Marine Brittny BODY AND FENDER WORKER Work Phone: 3(262)552-312702 [place] [address] 12-13-2022 14:10-0400 Diastolic blood pressure 78 mm[Hg] BODY AND FENDER WORKER-C Marine Callao BODY AND FENDER WORKER Work Phone: 8(261)933-046902 [place] [address] 12-13-2022 14:10-0400 Systolic blood pressure 118 mm[Hg] BODY AND FENDER WORKER-C Marine Callao BODY AND FENDER WORKER Work Phone: 9(245)496-628702 [place] [address] 12-13-2022 13:34-0400 Body mass index (BMI) [Percentile] Per age and sex 96.1 % BODY AND FENDER WORKER-C Marine Callao BODY AND FENDER WORKER Work Phone: 3(456)535-387802 [place] [address] 12-13-2022 13:34-0400 Body mass index (BMI) [Ratio] 33.2 kg/m2 BODY AND FENDER WORKER-C Marine Brittny BODY AND FENDER WORKER Work Phone: 6(631)541-116702 [place] [address] 12-13-2022 13:34-0400 Body weight 85.04 kg BODY AND FENDER WORKER-C Marine Brittny BODY AND FENDER WORKER Work Phone: [facility] 11-15-2022 09:02-0400 Body height 160.02 cm BODY AND FENDER WORKER-C Marine Bloom BODY AND FENDER WORKER Work Phone: [facility] 11-15-2022 09:01-0400 Body mass index (BMI) [Percentile] Per age and sex 96.1 % BODY AND FENDER WORKER-C Marine Bustosborn BODY AND FENDER WORKER Work Phone: [facility] 11-15-2022 09:01-0400 Body mass index (BMI) [Ratio] 33.1 kg/m2 BODY AND FENDER WORKER-C Marine Bustosborn BODY AND FENDER WORKER Work Phone: [facility] 11-15-2022 09:01-0400 Body weight 84.93 kg BODY AND FENDER WORKER-C Marine Bustosborn BODY AND FENDER WORKER Work Phone: [facility] 11-15-2022 09:01-0400 Diastolic blood pressure 82 mm[Hg] BODY AND FENDER WORKER-C Marine Bustosborn BODY AND FENDER WORKER Work Phone: [facility] 11-15-2022 09:01-0400 Systolic blood pressure 120 mm[Hg] BODY AND FENDER WORKER-C Marine Bustosborn BODY AND FENDER WORKER Work Phone: [facility] 10-19-2022 15:13-0500 Body temperature 98.49 [degF] Krislyn Aberegg PA Work Phone: [facility] 10-19-2022 15:13-0500 Body weight 87.45 kg Krislyn Aberegg PA Work Phone: [facility] 10-19-2022 15:13-0500 Diastolic blood pressure 80 mm[Hg] Krislyn Aberegg PA Work Phone: [facility] 10-19-2022 15:13-0500 Heart rate 91 /min Krislyn Aberegg PA Work Phone: [facility] 10-19-2022 15:13-0500 Respiratory rate 18 /min Krislyn Aberegg PA Work Phone: [facility] 10-19-2022 15:13-0500 SaO2% (BldA) [Mass fraction] 98 % Krislyn Aberegg PA Work Phone: [facility] 10-19-2022 15:13-0500 Systolic blood pressure 122 mm[Hg] Gal Shellgg PA Work Phone: [facility] 10-18-2022 09:52-0500 Body height 160.02 cm BODY AND FENDER WORKER-C Marine Callao BODY AND FENDER WORKER Work Phone: 9(530)893-748974 [place] [address] 10-18-2022 09:52-0500 Body mass index (BMI) [Percentile] Per age and sex 96.8 % BODY AND FENDER WORKER-C Marine Callao BODY AND FENDER WORKER Work Phone: 6(561)339-185931 [address] 10-18-2022 09:52-0500 Body mass index (BMI) [Ratio] 34.2 kg/m2 BODY AND FENDER WORKER-C Marine Callao BODY AND FENDER WORKER Work Phone: 8(102)599-689374 [place] [address] 10-18-2022 09:52-0500 Body weight 87.54 kg [employer] Work Phone: [phone] [place] [address] 10-18-2022 09:52-0500 Diastolic blood pressure 77 mm[Hg] [employer] Work Phone: [phone] [place] [address] 10-18-2022 09:52-0500 Systolic blood pressure 121 mm[Hg] [employer] Work Phone: [phone] [place] [address] 10-02-2022 09:15-0500 Body height 160.02 cm BODY AND FENDER WORKER-C Marine Brittny BODY AND FENDER WORKER Work Phone: [phone] [address] 10-02-2022 09:14-0500 Body mass index (BMI) [Percentile] Per age and sex 97 % BODY AND FENDER WORKER-C Marine Brittny BODY AND FENDER WORKER Work Phone: [phone] [place] [address] 10-02-2022 09:14-0500 Body mass index (BMI) [Ratio] 34.6 kg/m2 BODY AND FENDER WORKER-C Marine Callao BODY AND FENDER WORKER Work Phone: [phone] [place] [address] 10-02-2022 09:14-0500 Body weight 88.67 kg BODY AND FENDER WORKER-C Marine Brittny BODY AND FENDER WORKER Work Phone: [facility] 10-02-2022 09:14-0500 Diastolic blood pressure 75 mm[Hg] BODY AND FENDER WORKER-C Marine Bloom BODY AND FENDER WORKER Work Phone: [facility] 10-02-2022 09:14-0500 Systolic blood pressure 115 mm[Hg] BODY AND FENDER WORKER-Serenity Bloom BODY AND FENDER WORKER Work Phone: [facility] Encounters Encounter Date Encounter Type Care Provider Facility Start: 02-05-2025 ambulatory Alisha Heller Facility:[facility] Start: 11-24-2024 End: 11-25-2024 Emergency department patient visit Alisha Heller MD Work Phone: -Emergency Department Work Phone: Start: 06-26-2024 End: 06-26-2024 Emergency department patient visit Robb Reinoso Facility:[facility] Start: 06-16-2024 End: 06-16-2024 ambulatory Alisha Heller Facility:[facility] Start: 06-16-2024 End: 06-16-2024 ambulatory Tiffanie Choe NP Facility:[facility] Start: 06-10-2024 End: 06-10-2024 ambulatory Alisha Heller Facility:[facility] Start: 05-15-2024 End: 05-15-2024 ambulatory Anne Brooks Facility:[facility] Start: 05-15-2024 End: 05-15-2024 ambulatory Anne Brooks Facility:[facility] Start: 04-14-2024 End: 04-14-2024 ambulatory Facility:[facility] Start: 04-14-2024 End: 04-14-2024 Office outpatient visit 15 minutes Jeremias Arauz APRN.CNP Work Phone: [facility] Comment on above: Pain, dental (Primar y Dx) Start: 12-12-2023 End: 12-12-2023 ambulatory BODY AND FENDER WORKER-Serenity Bloom BODY AND FENDER WORKER Work Phone: [facility] Work Phone: Start: 12-12-2023 End: 12-12-2023 Patient encounter procedure BODY AND FENDER WORKER-Serenity Bloom BODY AND FENDER WORKER Work Phone: [phone] [place] [address] Start: 09-11-2023 End: 09-11-2023 Patient encounter procedure BODY AND FENDER WORKER-C Marine Bloom BODY AND FENDER WORKER Work Phone: [facility] Work Phone: Start: 07-01-2023 Non-patient / Non-visit BODY AND FENDER WORKER-C C hradam Bustosborn BODY AND FENDER WORKER Work Phone: [facility] Start: 06-30-2023 End: 07-01-2023 Evaluation and management of inpatient BODY AND FENDER WORKER-C Marine Bustosborn BODY AND FENDER WORKER [facility] Work Phone: Start: 06-30-2023 Evaluation and management of inpatient BODY AND FENDER WORKER-C Marine Bustosborn BODY AND FENDER WORKER [facility] Work Phone: Start: 06-30-2023 observation encounter BODY AND FENDER WORKER-C Chr adam Bloom BODY AND FENDER WORKER Work Phone: [facility] Work Phone: Start: 06-15-2023 End: 06-15-2023 Patient encounter procedure BODY AND FENDER WORKER-C Marine Bloom BODY AND FENDER WORKER Work Phone: [facility] Work Phone: Start: 05-10-2023 Non-patient / Non-visit BODY AND FENDER WORKER-C C hradam Bustosborn BODY AND FENDER WORKER Work Phone: [facility] Start: 05-09-2023 Non-patient / Non-visit BODY AND FENDER WORKER-C C hradam Brittny BODY AND FENDER WORKER Work Phone: [facility] Start: 05-08-2023 Non-patient / Non-visit BODY AND FENDER WORKER-C C hradam Callao BODY AND FENDER WORKER Work Phone: [facility] Start: 05-07-2023 Non-patient / Non-visit BODY AND FENDER WORKER-C C hradam Callao BODY AND FENDER WORKER Work Phone: [facility] Start: 05-07-2023 End: 05-10-2023 Evaluation and management of inpatient BODY AND FENDER WORKER-C Marine Bloom BODY AND FENDER WORKER [facility] Phone[facility] Work Phone: Start: 05-07-2023 End: 05-07-2023 Patient encounter procedure BODY AND FENDER WORKER-C Marine Bustosborn BODY AND FENDER WORKER Work Phone: [facility], [facility] Work Phone: Start: 05-07-2023 End: 05-07-2023 Patient encounter procedure BODY AND FENDER WORKER-C Marine Bloom BODY AND FENDER WORKER Work Phone: [facility] Work Phone: Start: 05-02-2023 Non-patient / Non-visit BODY AND FENDER WORKER-C C mandi Bloom BODY AND FENDER WORKER Work Phone: [facility] Start: 05-01-2023 End: 05-01-2023 Patient encounter procedure BODY AND FENDER WORKER-C Marine Bloom BODY AND FENDER WORKER [facility] Phone[facility] Work Phone: Start: 04-30-2023 End: 04-30-2023 Patient encounter procedure BODY AND FENDER WORKER-C Marine Bloom BODY AND FENDER WORKER Work Phone: [facility] Work Phone: Start: 04-24-2023 End: 04-24-2023 Patient encounter procedure BODY AND FENDER WORKER-C Marine Bustosborn BODY AND FENDER WORKER Work Phone: [facility] Work Phone: Start: 04-17-2023 End: 04-17-2023 Patient encounter procedure BODY AND FENDER WORKER-C Marine Bustosborn BODY AND FENDER WORKER Work Phone: [facility] Work Phone: Start: 04-09-2023 End: 04-09-2023 ambulatory BODY AND FENDER WORKER-C Marine Bustosborn BODY AND FENDER WORKER Work Phone: [facility] Work Phone: Start: 04-09-2023 End: 04-09-2023 Patient encounter procedure BODY AND FENDER WORKER-C Marine Bloom BODY AND FENDER WORKER Work Phone: [facility] Work Phone: Start: 04-09-2023 End: 04-09-2023 Patient encounter procedure BODY AND FENDER WORKER-C Marine Bloom BODY AND FENDER WORKER Work Phone: [facility] Work Phone: Start: 03-26-2023 End: 03-26-2023 Patient encounter procedure BODY AND FENDER WORKER-C Marine Bloom BODY AND FENDER WORKER Work Phone: [facility] Work Phone: Start: 03-12-2023 End: 03-12-2023 Patient encounter procedure BODY AND FENDER WORKER-C Marine Bloom BODY AND FENDER WORKER Work Phone: [facility] Work Phone: Start: 03-09-2023 End: 03-09-2023 Office outpatient visit 15 minutes Jeremias Arauz APRN.OVER HAULER HELPER Work Phone: [facility] Comment on above: Sore throat (Primary Dx); URI, acute Start: 02-26-2023 End: 02-26-2023 Patient encounter procedure BODY AND FENDER WORKER-C Marine Bloom BODY AND FENDER WORKER Work Phone: [facility] Work Phone: Start: 02-26-2023 End: 02-26-2023 Patient encounter procedure BODY AND FENDER WORKER-C Marine Bloom BODY AND FENDER WORKER Work Phone: [facility] Work Phone: Start: 02-08-2023 End: 02-08-2023 ambulatory BODY AND FENDER WORKER-C Marine Bloom BODY AND FENDER WORKER Work Phone: [facility] Work Phone: Start: 02-08-2023 End: 02-08-2023 Patient encounter procedure BODY AND FENDER WORKER-C Marine Bloom BODY AND FENDER WORKER Work Phone: [facility] Work Phone: Start: 01-19-2023 Non-patient / Non-visit BODY AND FENDER WORKER-C Serenity Bloom BODY AND FENDER WORKER Work Phone: [facility] Start: 01-18-2023 End: 01-18-2023 ambulatory BODY AND FENDER WORKER-C Marine Bloom BODY AND FENDER WORKER Work Phone: [facility] Work Phone: Start: 01-18-2023 End: 01-18-2023 Patient encounter procedure BODY AND FENDER WORKER-C Marine Bloom BODY AND FENDER WORKER Work Phone: [facility] Start: 01-10-2023 End: 01-10-2023 Patient encounter procedure BODY AND FENDER WORKER-C Marine Bloom BODY AND FENDER WORKER Work Phone: [facility] Start: 12-13-2022 End: 12-13-2022 Patient encounter procedure BODY AND FENDER WORKER-C Marine Bloom BODY AND FENDER WORKER Work Phone: [facility] Start: 12-11-2022 End: 12-11-2022 ambulatory MARINE BLOOM [facility] Start: 11-15-2022 End: 11-15-2022 ambulatory BODY AND FENDER WORKER-C Marine Bloom BODY AND FENDER WORKER Work Phone: [facility] Work Phone: Start: 11-15-2022 End: 11-15-2022 Patient encounter procedure BODY AND FENDER WORKER-C Marine Bolom BODY AND FENDER WORKER Work Phone: [facility] Start: 10-19-2022 End: 10-19-2022 Patient encounter procedure Gal Palma PA Work Phone: [facility] Comment on above: Lumbar pain (Primary Dx); Left hip pain Start: 10-18-2022 End: 10-18-2022 ambulatory BODY AND FENDER WORKER-C Marine Bloom BODY AND FENDER WORKER Work Phone: [facility] Work Phone: Start: 10-18-2022 End: 10-18-2022 Patient encounter procedure BODY AND FENDER WORKER-C Marine Bloom BODY AND FENDER WORKER Work Phone: [facility] Start: 10-02-2022 End: 10-02-2022 ambulatory BODY AND FENDER WORKER-C Marine Bloom BODY AND FENDER WORKER Work Phone: [facility] Work Phone: Start: 10-02-2022 End: 10-02-2022 Patient encounter procedure BODY AND FENDER WORKER-C Marine Bloom BODY AND FENDER WORKER [facility] Start: 10-02-2022 End: 10-02-2022 Patient encounter procedure BODY AND FENDER WORKER-C Marine Bloom BODY AND FENDER WORKER Work Phone: [facility] Start: 04-05-2022 End: 04-06-2022 ambulatory [facility] Start: 04-05-2022 End: 04-05-2022 Subsequent hospital visit by physician Inez Martinez MD Work Phone: [facility] Comment on above: Other hyperlipidemia ; Encounter for test, result unknown Start: 04-04-2022 End: 04-04-2022 ambulatory [facility] Start: 12-05-2021 End: 12-05-2021 Patient encounter procedure [facility] Start: 10-07-2021 End: 10-07-2021 Patient encounter procedure [facility] Procedures Date Procedure Procedure Detail Performing Clinician Start: 11-25-2024 Computed tomography of abdomen and pelvis with intravenous contrast Alisha Heller MD Work Phone: Start: 07-01-2023 Fluoroscopic guidance N P-Serenity Bloom BODY AND FENDER WORKER Work Phone: Start: 07-01-2023 Total cholecystectom y and exploration of common bile duct BODY AND FENDER WORKER-C Marine Bloom BODY AND FENDER WORKER Work Phone: Start: 06-30-2023 US scan of gallbladder BODY AND FENDER WORKER-C Marine Bloom BODY AND FENDER WORKER Work Phone: Start: 06-30-2023 Computed tomography of abdomen and pelvis with intravenous contrast BODY AND FENDER WORKER-C Marine Bloom BODY AND FENDER WORKER Work Phone: Start: 05-07-2023 Ultrasound scan for growth BODY AND FENDER WORKER-C Marine Bloom BODY AND FENDER WORKER Work Phone: Start: 05-01-2023 SARS-CoV-2 & FLU Ant igen (Rapid) BODY AND FENDER WORKER-C Marine Bloom BODY AND FENDER WORKER Work Phone: Start: 05-01-2023 Urine culture BODY AND FENDER WORKER-C Amrit Bloom BODY AND FENDER WORKER Work Phone: Start: 04-09-2023 Group B Streptococcu s Culture BODY AND FENDER WORKER-Serenity Bloom BODY AND FENDER WORKER Work Phone: Start: 03-09-2023 STREP A MOLECULAR (POC) 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 Work Phone: Start: 02-26-2023 Cytopathology proced ure, preparation of smear, genital source BODY AND FENDER WORKER-Serenity Bloom BODY AND FENDER WORKER Work Phone: Start: 02-26-2023 Investigation of transfusion reaction BODY AND FENDER WORKER-Serenity Bloom BODY AND FENDER WORKER Work Phone: Start: 04-05-2022 Hemoglobin glycosyla jaya a1c Inez Martinez MD Work Phone: Start: 04-05-2022 Lipid panel Inez sparks MD Work Phone: History of cholecystectomy Status post laparoscopic cholecystectomy BODY AND FENDER WORKER-Serenity Bloom BODY AND FENDER WORKER Work Phone: Comment on above: This is a 18-year-ol d female who makes her first postoperative visit following laparoscopic cholecystectomy with intraoperative cholangiogram 07/02/2023. She has recovered well and describes no significant issues postoperatively. She appears to be well-healing on exam, but I do confirm evidence of a spitting suture epigastric 5 mm port site. This has yet to break through the skin and I have offered opening the incision to remove the stitch versus simply having patient trim the stitch if it erupts through using fingernail clippers. At this time patient wishes to see if it becomes more of an issue and expresses comfort with the instructions to trim the suture herself. I did review with her her postoperative pathology as well as her intraoperative cholangiogram pictures which showed evidence of chronic cholecystitis and were unremarkable, respectively. Given her clinical progress I do believe she is ready for return to work at this time. Urine culture CRAMEN Bloom BODY AND FENDER WORKER Work Phone: Plan of Treatment Date Care Activity Detail Author Start: 03-12-2033 Urine microalbumin profile DTaP,Tdap,Td Vaccine (10 - Td or Tdap) [facility] Start: 06-28-2031 Urine microalbumin profile DTAP,TDAP,TD (8 - Td or Tdap) [facility] Start: 11-25-2024 [facility] Start: 06-24-2024 Tetanus Diphtheria and Pertussis Vaccines (7 - Td or Tdap) Tetanus Diphtheria and Pertussis Vaccines (7 - Td or Tdap) [facility] Start: 04-13-2024 Covid-19 Vaccine ( season) Covid-19 Vaccine () [facility] Start: 04-13-2024 Influenza vaccination Influenza Vaccine (#1) [facility] Start: 01-31-2024 Screening for malignant neoplasm of cervix Cervical Cancer Screening [facility] Start: 07-01-2023 Patient discharge [facility] Start: 07-01-2023 Cholangiogram Cholangiogram/ O R,Initial [facility] Start: 07-01-2023 XR Biliary ducts and Gallbladder Views W contrast IV [facility] Start: 06-30-2023 Following clinical pathway protocol [facility] Start: 06-30-2023 Application of intermittent pneumatic compression device [facility] Start: 06-30-2023 Incentive spirometry [facility] Start: 06-30-2023 [facility] Start: 06-30-2023 Admission procedure [facility] Start: 06-30-2023 Hospital admission, emergency, from emergency room, medical nature [facility] Start: 05-10-2023 Patient discharge [facility] Start: 05-08-2023 [facility] Start: 05-08-2023 Administration of medication [facility] Start: 05-08-2023 Application of ice collar, cap or bag [facility] Start: 05-08-2023 Catheterization of vein [facility] Start: 05-08-2023 Introduction of urinary catheter [facility] Start: 05-08-2023 Measuring intake and output [facility] Start: 05-08-2023 Notification of physician [facility] Start: 05-08-2023 Procedure discontinued [facility] Start: 05-08-2023 Provision of activity privileges [facility] Start: 05-08-2023 Vital signs measurements [facility] Start: 05-08-2023 [facility] Start: 05-07-2023 Admission procedure [facility] Start: 05-01-2023 Iv infusion hydration initial 31 min-1 hour HYDRATION IV INFUSION INIT [facility] Start: 05-01-2023 Catheterization of vein [facility] Start: 05-01-2023 Patient discharge [facility] Start: 04-13-2023 Influenza vaccination INFLUENZA (#1) [facility] Start: 01-18-2023 Obstetric monitoring [facility] Start: 01-18-2023 Vital signs measurements [facility] Start: 01-18-2023 [facility] Start: 08-13-2022 DEPRESSION ASSESSMENT DEPRESSION ASSESSMENT [facility] Start: 04-13-2022 FLU (#1) FLU (#1) [facility] Start: 04-13-2022 Influenza vaccination INFLUENZA (#1) [facility] Start: 03-08-2022 Well Visit Well Visit [facility] Start: 02-28-2022 COVID-19 VACCINE (4 - Booster for Pfizer series) COVID-19 VACCINE (4 - Booster for Pfizer series) [facility] Start: 02-28-2022 COVID-19 VACCINE (4 - Pfizer series) COVID-19 VACCINE (4 - Pfizer series) [facility] Start: 2021 Anxiety Screening Anxiety Screening [facility] Start: 2021 CHLAMYDIA SCREENING (18-) CHLAMYDIA SCREENING (18-) [facility] Start: 2021 Depression Screening Depression Screening [facility] Start: 2021 GC (GONORRHEA) SCREENING (18-24) GC (GONORRHEA) SCREENING (18-24) [facility] Start: 2021 HEPATITIS C SCREENING HEPATITIS C SCREENING [facility] Start: 2021 Hepatitis C screening Hepatitis C Screening [facility] Start: 2021 HIV SCREENING HIV SCREENING [facility] Start: 2021 HIV screening HIV Screening [facility] Start: 2021 Screening for Chlamydia trachomatis Chlamydia Screening (18-24) [facility] Start: 2019 MenB (1 of 2 - MenB 2-Dose Series) MenB (1 of 2 - MenB 2-Dose Series) [facility] Start: 2019 Meningococcal B Vaccine: Consider Based On Risk (1 of 2 - Patient Seeks Protection) Meningococcal B Vaccine: Consider Based On Risk (1 of 2 - Patient Seeks Protection) [facility] Start: 2019 MENINGOCOCCAL B: Consider based on risk (1 of 2 - Patient Seeks Protection) MENINGOCOCCAL B: Consider based on risk (1 of 2 - Patient Seeks Protection) [facility] Start: 2017 PEDS TO ADULT TRANSITION ANNUAL ASSESSMENT PEDS TO ADULT TRANSITION ANNUAL ASSESSMENT [facility] Start: 2015 PEDS TO ADULT TRANSITION INITIAL DISCUSSION PEDS TO ADULT TRANSITION INITIAL DISCUSSION [facility] Start: 12-22-2014 HPV VACCINE (2 - 2-dose series) HPV VACCINE (2 - 2-dose series) [facility] Start: 2013 MENINGOCOCCAL B: Consider based on risk (1 of 2 - Risk Bexsero 2-dose series) MENINGOCOCCAL B: Consider based on risk (1 of 2 - Risk Bexsero 2-dose series) [facility] CBC W Auto Different ial panel - Blood [facility] CBC W Auto Different ial panel - Blood [facility] Glucose [Mass/volume ] in Serum or Plasma --1 hour post 50 g glucose PO [facility] Glucose [Mass/volume ] in Serum or Plasma --1 hour post 50 g glucose PO [facility] Hepatitis B surface antigen measurement [facility] Hepatitis C antibody measurement [facility] HIV 1+2 Ab+HIV1 p24 Ag [Presence] in Serum or Plasma by Immunoassay [facility] HIV 1+2 Ab+HIV1 p24 Ag [Presence] in Serum or Plasma by Immunoassay [facility] Patient Education [facility] Work Phone: Patient referral [facility] Work Phone: Rubella IgG measurement [facility] Treponema sp Ab [Pre sence] in Serum [facility] Treponema sp Ab [Pre sence] in Serum [facility] Immun[place] Immunization Date Immunization Notes Care Provider Sara dennis 04-17-2023 influenza, injectabl e, quadrivalent, preservative free BODY AND FENDER WORKER-C Marine Bloom BODY AND FENDER WORKER Work Phone: [facility] 04-17-2023 influenza virus vacc ine, unspecified formulation Jeremias Arauz APRN.OVER HAULER HELPER Work Phone: [facility] 03-12-2023 tetanus toxoid, redu kelsey diphtheria toxoid, and acellular pertussis vaccine, adsorbed BODY AND FENDER WORKER-C Marine Bloom BODY AND FENDER WORKER Work Phone: [facility] 06-28-2021 tetanus toxoid, redu kelsey diphtheria toxoid, and acellular pertussis vaccine, adsorbed Bluisdebra Abdariana PA Work Phone: [facility] 03-08-2021 Human Papillomavirus 9-valent vaccine Inez Martinez MD Work Phone: [facility] 03-08-2021 meningococcal polysaccharide (groups A, C, Y and W-135) diphtheria toxoid conjugate vaccine (MCV4P) Inez Martinez MD Work Phone: [facility] 12-22-2020 PFIZER (purple cap) COVID-19, mRNA, LNP-S, 30mcg/0.3mL dose Inez Martinez MD Work Phone: [facility] 12-02-2020 PFIZER (purple cap) COVID-19, mRNA, LNP-S, 30mcg/0.3mL dose Inez Martinez MD Work Phone: [facility] 06-24-2014 human papilloma viru s vaccine, quadrivalent Inez Martinez MD Work Phone: [facility] 06-24-2014 influenza, live, intranasal, quadrivalent Inez Martinez MD Work Phone: [facility] 06-24-2014 meningococcal polysaccharide (groups A, C, Y and W-135) diphtheria toxoid conjugate vaccine (MCV4P) Inez Martinez MD Work Phone: [facility] 06-24-2014 tetanus toxoid, redu kelsey diphtheria toxoid, and acellular pertussis vaccine, adsorbed Inez Martinez MD Work Phone: [facility] 05-04-2008 diphtheria, tetanus toxoids and acellular pertussis vaccine Gal WADE Work Phone: [facility] Work Phone: 05-04-2008 diphtheria, tetanus toxoids and acellular pertussis vaccine, unspecified formulation Inez Martinez MD Work Phone: [facility] 05-04-2008 measles, mumps and rubella virus vaccine Inez Martinez MD Work Phone: [facility] 05-04-2008 varicella virus vaccine Inez Martinez MD Work Phone: [facility] 08-02-2004 influenza virus vacc ine, unspecified formulation Inez Martinez MD Work Phone: [facility] 08-02-2004 measles, mumps and rubella virus vaccine Inez Martinez MD Work Phone: [facility] 08-02-2004 pneumococcal conjuga te vaccine, 7 valent Inez Martinez MD Work Phone: [facility] 08-02-2004 varicella virus vaccine Inez Martinez MD Work Phone: [facility] 06-01-2004 diphtheria, tetanus toxoids and acellular pertussis vaccine, unspecified formulation Inez Martinez MD Work Phone: [facility] 06-01-2004 DTaP-hepatitis B and poliovirus vaccine Inez Martinez MD Work Phone: [facility] 06-01-2004 haemophilus influenz ae type b vaccine, HbOC conjugate Gal WADE Work Phone: [facility] Work Phone: 06-01-2004 haemophilus influenz ae type b vaccine, PRP-T conjugate Inez Martinez MD Work Phone: [facility] 06-01-2004 pneumococcal conjuga te vaccine, 7 valent Inez Martinez MD Work Phone: [facility] 06-01-2004 poliovirus vaccine, inactivated Inez Martinez MD Work Phone: [facility] 2003 diphtheria, tetanus toxoids and acellular pertussis vaccine, unspecified formulation Inez Martinez MD Work Phone: [facility] 2003 DTaP-hepatitis B and poliovirus vaccine Inez Martinez MD Work Phone: [facility] 2003 haemophilus influenz ae type b vaccine, HbOC conjugate Bluisdebra Palma PA Work Phone: [facility] Work Phone: 2003 haemophilus influenz ae type b vaccine, PRP-T conjugate Inez Martinez MD Work Phone: [facility] 2003 hepatitis B vaccine, pediatric or pediatric/adolescent dosage Inez Martinez MD Work Phone: [facility] 2003 poliovirus vaccine, inactivated Inez Martinez MD Work Phone: [facility] 2003 diphtheria, tetanus toxoids and acellular pertussis vaccine Krislyn Louie PA Work Phone: [facility] Work Phone: 2003 diphtheria, tetanus toxoids and acellular pertussis vaccine, unspecified formulation Inez Martinez MD Work Phone: [facility] 2003 haemophilus influenz ae type b vaccine, HbOC conjugate Krislyn Aberegg PA Work Phone: [facility] Work Phone: 2003 haemophilus influenz ae type b vaccine, PRP-T conjugate Inez Martinez MD Work Phone: [facility] 2003 pneumococcal conjuga te vaccine, 7 valent Inez Martinez MD Work Phone: [facility] 2003 poliovirus vaccine, inactivated Inez Martinez MD Work Phone: [facility] 2003 diphtheria, tetanus toxoids and acellular pertussis vaccine Gal WADE Work Phone: [facility] Work Phone: 2003 diphtheria, tetanus toxoids and acellular pertussis vaccine, unspecified formulation Inez Martinez MD Work Phone: [facility] 2003 haemophilus influenz ae type b vaccine, HbOC conjugate Gal WADE Work Phone: [facility] Work Phone: 2003 haemophilus influenz ae type b vaccine, PRP-T conjugate Inez Martinez MD Work Phone: [facility] 2003 pneumococcal conjuga te vaccine, 7 valent Inez Martinez MD Work Phone: [facility] 2003 poliovirus vaccine, inactivated Inez Martinez MD Work Phone: [facility] 2003 hepatitis B vaccine, pediatric or pediatric/adolescent dosage Inez Martinez MD Work Phone: [facility] 2003 hepatitis B vaccine, pediatric or pediatric/adolescent dosage Inez Martinez MD Work Phone: [facility] Payers Date Payer Category Payer Self-pay [id number] 2023 Private Health Insurance [id number] 2019 Private Health Insurance [id number] 2012 Medicaid [id number] 2003 Unknown [id number] 2003 Unknown [id number] 79 2003 Unknown [id number] 79 Private Health Insurance [id number] Private Health Insurance [facility] [id number] Unknown [facility] *DO NOT USE* [id number] Unknown [employer] [id number] Unknown [id number] 62 Unknown [id number] 62 Unknown [id number] 62 Unknown [id number] 62 Unknown [id number] 62 Unknown [id number] 62 Unknown [id number] 62 Unknown [id number] 62 Social History Date Type Detail Facility Start: 07-20-2021 End: 09-11-2023 Tobacco smoking status NHIS Unknown if ever smoked [facility] Start: 12-26-[address] [facility] Start: 2003 Sex Assigned At Female [facility] Start: 04-04-2022 End: 10-19-2022 Tobacco smoking status NHIS Never smoked tobacco [facility] Start: 04-04-2022 End: 10-19-2022 Tobacco use and exposure Smokeless tobacco non-user [facility] Start: 2003 Sex Assigned At Not on file [facility] Start: 03-26-2022 End: 04-05-2022 Exposure to SARS-CoV-2 (event) Not sure [facility] History of tobacco use Passive smoker [facility] Start: 10-19-2022 End: 04-14-2024 Alcohol intake Current non-drinker of alcohol (finding) [facility] Start: 10-19-2022 Tobacco Comment dad and mom chucky shelton outside [facility] Start: 07-18-2020 End: 03-09-2023 History of Social function [facility] Start: 07-18-2020 End: 03-09-2023 Tobacco use panel [facility] Start: 08-09-2022 [facility] National Score (1-100), lower number is lower risk Not on file [facility] Start: 11-24-2024 Tobacco smoking status NHIS Smokes tobacco daily (finding) [facility] Start: 11-25-2024 Sex Female (finding) [facility] NEGATED: Highlighted row [facility] Medical Equipment Procedure Code Equipment Code Equipment Original Text Equipment Identifier Dates Total cholecystectomy with exploration of common bile duct 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 Work Phone: Mental Status Date Assessment Result Facility 07-01-2023 Cognitive function Touch/Shaking [facility] Work Phone: Clinical Notes 10-19-2022 to 11-25-2024 Jeremias Arauz APRN.[facility] - 04/14/2024 9:59 AM EDT Note Date & Type Note Facility 11-25-2024 Discharge summary [facility] 11-25-2024 Radiology Diagnostic study note [facility] Imaging Services [address] [place] [address] Abdomen/Pelvis W IV Cont ONLY MR#: [id number] Acct: [id number] Name: LUCY ANDERSON Rep #: [id number] : 2005 F 19 From: Jw Martinez MD PCP: Dr. Alisha Heller MD Status: REG ER Study:Abdomen/Pelvis W IV Cont ONLY Date of E xam: 11/25/24 Exam# [id number] Ordering Dr: Ramy Mabry DO PROCEDURE: ABDOMEN/PELVIS W IV CONT ONLY 11/25/2024 REASON FOR EXAM: EPIGASTRIC PAIN TECHNIQUE: Abdomen and pelvis CT with intravenous contrast. Coronal and Sagittal reconstruction series were provided. PATIENT PREPARATION: Per protocol ORAL CONTRAST TYPE: None. CONTRAST: 94 cc Isovue 370 IV One or more dose reduction techniques were used (e.g., Automated exposure control, adjustment of the mA and/or kV according to patient size, use of iterative reconstruction technique. RADIATION DOSE SUMMARY: CTDlvol: 18.81 mGy DLP: 938.70 mGycm COMPARISON: None available FINDINGS: The lung bases are clear. The liver, adrenal glands, kidneys, pancreas and spleen appear within limits. CBD appears within limits post cholecystectomy. Abdominal aorta appears within limits. No adenopathy. No bowel dilation or free air. Normal caliber appendix without secondary signs. Ovaries and uterus appear within limits. Couple of follicles suggested right ovary. Intrauterine device appears centrally located. The bladder appears within limits. No free fluid. Subcutaneous soft tissues appear within limits. No hernia identified. CT/Abdomen/Pelvis W IV Cont ONLY IMPRESSION: No evidence of acute process. Reading Location: [facility] CC: Dr. Alisha Heller MD; Dr. Good Mabry DO ~ Industrial Methods Consultant: Signed [facility] 04-14-2024 Note HNO ID: [id number] Author: JEREMIAS ARAUZ APRN.[facility] Service: ? Author Type: Nurse Practitioner Type: Progress Notes Filed: 04/14/2024 10:11 Note Text: Subjective HPI Nontoxic-appearing female presents urgent care chief plaint dental pain. Duration of symptoms 2 weeks. Associated symptoms pain and swelling. Pain is mostly on the left lower. Did have wisdom teeth removed. Presents today with persistent discomfort. Did finish amoxicillin. Has not followed up with dentist yet. No trismus difficulty swallowing and secretion decreased range of motion of neck. Denies any fever body aches chills productive cough chest pain shortness of breath pleuritic pain hemoptysis nausea vomiting abdominal pain change in bowel or bladder habits. Past medical history prescription medication use and allergies reviewed. .Patient presents with: Dental Problem: left wisdom tooth removal x 2 weeks, still swelling after taking amoxicillin PAST MEDICAL HISTORY 10/05/2011: ADD (attention deficit disorder) 06/26/14: NEGATIVE HISTORY OF Comment: Normal Color Vision No date: NEGATIVE MEDICAL HISTORY PAST SURGICAL HISTORY 11/05/08: TONSILLECTOMY AND ADENOIDECTOMY ALLERGIES Doxycycline MEDICATIONS amphetamine-dextroamphetamine XR (ADDERALL XR) 20 mg capsule Take 1 capsule by mouth every afternoon. escitalopram oxalate (LEXAPRO) 20 mg tablet Take 1 tablet by mouth every afternoon. SUMAtriptan (IMITREX) 50 mg tablet Take 1-2 tabs at onset of headache, may repeat dose 2 hours later prn with a max dose of 200 mg per day vit no.124/iron/folic ( VITAMIN ORAL) Take by mouth. (Patient not taking: Reported on 04/14/2024) spironolactone (ALDACTONE) 50 mg tablet TAKE 1 TABLET BY MOUTH ONCE DAILY at the same time every day (Patient not taking: Reported on 10/19/2022) ondansetron (ZOFRAN) 8 mg tablet Take 1 Tablet (8 mg) by mouth every 8 hours as needed for Nausea for up to 21 days (Patient not taking: Reported on 04/14/2024) Azelaic Acid 15 % gel Apply to affected area. (Patient not taking: Reported on 10/19/2022) lisdexamfetamine (VYVANSE) 20 mg capsule Take 1 capsule by mouth once daily. (Patient not taking: Reported on 06/28/2021) FAMILY HISTORY Problem Relation Age of Onset Hypertension Paternal Grandmother Prostate Cancer Paternal Grandfather Social History Tobacco Use Smoking status: Never Passive exposure: Yes Smokeless tobacco: Never Tobacco comments: dad and mom smokes outside Substance Use Topics Alcohol use: No Drug use: No BP 128/82 Pulse 86 Temp 36.8 ?C (98.2 ?F) Resp 16 Wt 86.1 kg (189 lb 13.1 oz) SpO2 98% Review of Systems Constitutional: Negative for chills, fever and malaise/fatigue. HENT: Negative for congestion, ear discharge, ear pain, sinus pain and sore throat. Dental swelling Eyes: Negative for blurred vision, pain, discharge and redness. Respiratory: Negative for cough, hemoptysis, sputum production, shortness of breath, wheezing and stridor. Cardiovascular: Negative for chest pain. Gastrointestinal: Negative for abdominal pain, diarrhea, nausea and vomiting. Musculoskeletal: Negative for myalgias. Skin: Negative for itching and rash. Neurological: Negative for dizziness and headaches. Objective Physical Exam Constitutional: General: She is not in acute distress. Appearance: She is not diaphoretic. HENT: Head: Normocephalic. Jaw: No trismus, tenderness, swelling or pain on movement. Comments: Mild facial swelling noted. No erythema. Mouth/Throat: Mouth: Mucous membranes are moist. Pharynx: Oropharynx is clear. Uvula midline. No pharyngeal swelling, oropharyngeal exudate, posterior oropharyngeal erythema or uvula swelling. Comments: No erythema noted. No evidence of bacterial infection. Eyes: Conjunctiva/sclera: Conjunctivae normal. Pupils: Pupils are equal, round, and reactive to light. Cardiovascular: Rate and Rhythm: Normal rate and regular rhythm. Heart sounds: Normal heart sounds. Pulmonary: Effort: Pulmonary effort is normal. No tachypnea, accessory muscle usage or respiratory distress. Breath sounds: Normal breath sounds. No stridor. No wheezing, rhonchi or rales. Abdominal: Palpations: Abdomen is soft. Musculoskeletal: Cervical back: Normal range of motion and neck supple. No edema, erythema, rigidity or tenderness. No pain with movement. Normal range of motion. Lymphadenopathy: Cervical: No cervical adenopathy. Skin: General: Skin is warm and dry. Neurological: Mental Status: She is alert and oriented to person, place, and time. ASSESSMENT/PLAN: 1. Pain, dental - ICD9: 525.9, ICD10: K08.89 Diagnosed with pain. No evidence of bacterial infection noted. No evidence of deep space infection. [place] teeth removal pain management discussed. Will reach out to dentist tomorrow. Patient was educated on supportive therapies. Patient will follow up with primary care provider as need (more content not included)... [facility] 04-14-2024 History of Present illness Narrative Subjective HPI Nontoxic-appearing female presents urgent care chief plaint dental pain. Duration of symptoms 2 weeks. Associated symptoms pain and swelling. Pain is mostly on the left lower. Did have wisdom teeth removed. Presents today with persistent discomfort. Did finish amoxicillin. Has not followed up with dentist yet. No trismus difficulty swallowing and secretion decreased range of motion of neck. Denies any fever body aches chills productive cough chest pain shortness of breath pleuritic pain hemoptysis nausea vomiting abdominal pain change in bowel or bladder habits. Past medical history prescription medication use and allergies reviewed. .Patient presents with: Dental Problem: left wisdom tooth removal x 2 weeks, still swelling after taking amoxicillin PAST MEDICAL HISTORY 10/05/2011: ADD (attention deficit disorder) 06/26/14: NEGATIVE HISTORY OF Comment: Normal Color Vision No date: NEGATIVE MEDICAL HISTORY PAST SURGICAL HISTORY 11/05/08: TONSILLECTOMY & ADENOIDECTOMY <AGE 10 ALLERGIES Doxycycline MEDICATIONS amphetamine-dextroamphetamine XR (ADDERALL XR) 20 mg capsule Take 1 capsule by mouth every afternoon. escitalopram oxalate (LEXAPRO) 20 mg tablet Take 1 tablet by mouth every afternoon. SUMAtriptan (IMITREX) 50 mg tablet Take 1-2 tabs at onset of headache, may repeat dose 2 hours later prn with a max dose of 200 mg per day vit no.124/iron/folic ( VITAMIN ORAL) Take by mouth. (Patient not taking: Reported on 04/14/2024) spironolactone (ALDACTONE) 50 mg tablet TAKE 1 TABLET BY MOUTH ONCE DAILY at the same time every day (Patient not taking: Reported on 10/19/2022) ondansetron (ZOFRAN) 8 mg tablet Take 1 Tablet (8 mg) by mouth every 8 hours as needed for Nausea for up to 21 days (Patient not taking: Reported on 04/14/2024) Azelaic Acid 15 % gel Apply to affected area. (Patient not taking: Reported on 10/19/2022) lisdexamfetamine (VYVANSE) 20 mg capsule Take 1 capsule by mouth once daily. (Patient not taking: Reported on 06/28/2021) FAMILY HISTORY Problem Relation Age of Onset Hypertension Paternal Grandmother Prostate Cancer Paternal Grandfather Social History Tobacco Use Smoking status: Never Passive exposure: Yes Smokeless tobacco: Never Tobacco comments: dad and mom smokes outside Substance Use Topics Alcohol use: No Drug use: No BP 128/82 Pulse 86 Temp 36.8 C (98.2 F) Resp 16 Wt 86.1 kg (189 lb 13.1 oz) SpO2 98% Review of Systems Constitutional: Negative for chills, fever and malaise/fatigue. HENT: Negative for congestion, ear discharge, ear pain, sinus pain and sore throat. Dental swelling Eyes: Negative for blurred vision, pain, discharge and redness. Respiratory: Negative for cough, hemoptysis, sputum production, shortness of breath, wheezing and stridor. Cardiovascular: Negative for chest pain. Gastrointestinal: Negative for abdominal pain, diarrhea, nausea and vomiting. Musculoskeletal: Negative for myalgias. Skin: Negative for itching and rash. Neurological: Negative for dizziness and headaches. Objective Physical Exam Constitutional: General: She is not in acute distress. Appearance: She is not diaphoretic. HENT: Head: Normocephalic. Jaw: No trismus, tenderness, swelling or pain on movement. Comments: Mild facial swelling noted. No erythema. Mouth/Throat: Mouth: Mucous membranes are moist. Pharynx: Oropharynx is clear. Uvula midline. No pharyngeal swelling, oropharyngeal exudate, posterior oropharyngeal erythema or uvula swelling. Comments: No erythema noted. No evidence of bacterial infection. Eyes: Conjunctiva/sclera: Conjunctivae normal. Pupils: Pupils are equal, round, and reactive to light. Cardiovascular: Rate and Rhythm: Normal rate and regular rhythm. Heart sounds: Normal heart sounds. Pulmonary: Effort: Pulmonary effort is normal. No tachypnea, accessory muscle usage or respiratory distress. Breath sounds: Normal breath sounds. No stridor. No wheezing, rhonchi or rales. Abdominal: Palpations: Abdomen is soft. Musculoskeletal: Cervical back: Normal range of motion and neck supple. No edema, erythema, rigidity or tenderness. No pain with movement. Normal range of motion. Lymphadenopathy: Cervical: No cervical adenopathy. Skin: General: Skin is warm and dry. Neurological: Mental Status: She is alert and oriented to person, place, and time. ASSESSMENT/PLAN: 1. Pain, dental - ICD9: 525.9, ICD10: K08.89 Diagnosed with pain. No evidence of bacterial infection noted. No evidence of deep space infection. [place] teeth removal pain management discussed. Will reach out to dentist tomorrow. Patient was educated on supportive therapies. Patient will follow up with primary care provider as needed. Patient was instructed to immediately proceed to emergency room for any new, worsening, or symptoms lasting longer than anticipated. The patient's clinical presentation is otherwise unremarkable at this time. Based on exam and clinical finding, the patient is stable for discharge. Plan of care was discussed with patient. Patient verbalizes understanding and agrees to plan of care. This note was generated using [employer] software. It may contain errors in wording, punctuation, or spelling. Jeremias Arauz APRN.[employer] documented in this encounter [facility] 07-01-2023 Procedure note [facility] 07-01-2023 Progress note Note Date/Time July 01, 2023 9:05am [facility] Medical Records Department [address] [place] [address] Progress Note - Surgery 07/01/23 09 MR#: [id number] Acct: [id number] Name: LUCY ANDERSON Rep #:[id number] : 2005 18 From: Diego Ramos PCP: Marine Bloom, BAY-C Status:AD M IN Location: MS3 [id number] Subjective Subjective Seen and examined during AM rounds. She is found sitting up in bed but reports that she is feeling much better today. She does not have any significant abdominal discomfort. Objective Data Objective Data Vital Signs: Vital Signs Temp Pulse Resp BP Pulse Ox O2 Del Method 98.9 F 57 L 14 118/75 99 Room Air 11/19/23 08:16 07/01/23 08:16 07/01/23 08:16 07/01/23 08:16 07/01/23 08:16 07/01/23 08:21 Oxygen Delivery Method Room Air Weight: 190 lb 14.725 oz Body Mass Index (BMI) 33.8 Intake & Output: Intake and Output for Last 24 Hours 06/29/23 06/30/23 07/01/23 23:59 23:59 23:59 Intake Total 2460 / 2460 1014.58 / 1014.58 Balance 2460 / 2460 1014.58 / 1014.58 Lab / Micro Data 07/01/23 05:30 07/01/23 05:30 Labs: Laboratory Results - last 24 hr 06/30/23 21:25: Urine Test Negative 07/01/23 05:30: WBC 4.5, RBC 4.31, Hgb 11.5 L, Hct 38.0, MCV 88.2, MCH 26.7 L, MCHC 30.3 L, RDW Std Deviation 45.5 H, RDW Coeff of Cristino 14.0, Plt Count 178, MPV11.5, Immature Gran % (Auto) 0.200, Neut % (Auto) 41.5 L, Lymph % (Auto) 42.8 H,Creek % (Auto) 11.1 H, Eos % (Auto) 4.0, Baso % (Auto) 0.4, Absolute Neuts (auto)1.9 L, Absolute Lymphs (auto) 1.93, Nucleated RBC % 0, Sodium 141, Potassium 3.8, Chloride 109 H, Carbon Dioxide 26.0, Anion Gap 6, BUN 10, Creatinine 0.84, Estim Creat Clear Calc 88.37, Est GFR (MDRD) Af Amer 111, Est GFR (MDRD) Non-Af 92, BUN/Creatinine Ratio 11.9, Glucose 71 L, Calcium 8.5, Phosphorus 4.3, Magnesium 2.1, Total Bilirubin 0.60, AST 188 H, ALT 361 H, Alkaline Phosphatase 308 H, Total Protein 6.5, Albumin 3.7, Globulin 2.8, Albumin/Globulin Ratio 1.3,Lipase 17 Physical Exam Const oriented x3 and no apparent distress Resp normal respiratory effort GI GI Narrative: Persistent epigastric and right upper quadrant tenderness with exam. Positive Hernandez sign persists Assessment & Plan Assessment/Plan (1) Choledocholithiasis with acute cholecystitis: PLAN: This is a 18-year-old female hospital day 2 for admission for probable choledocholithiasis with acute cholecystitis. Her transaminitis and hyperbilirubinemia are responding as would be expected with spontaneous resolution of her choledocholithiasis and her labs are downtrending. However, her exam still suggests cholecystitis with positive Hernandez sign. I have reiterated our plans to proceed with cholecystectomy and intraoperative cholangiogram later today. Patient to remain n.p.o. with empiric antibiotics until that time. All questions were answered from both patient and her family. As long as patient is not confirmed to have persistent choledocholithiasis or there are any other unexpected findings in the operating room, she could be eligible for discharge postoperatively. She and her family were made aware of this possibility and are very interested in discharge given that the separation from her has been difficult. Charges/Coding Visit Charges Inpatient E&M: 93385 Subs Hosp L2 07/01/23 0940 <Electronically signed by Diego Oscar MD> Cosigner Signature (if applicable): CC: ~ Signed [facility] Work Phone: 1(963) 541-196011-18-2023 History and physical note Author Diego Oscar [facility] June 30, 2023 11:50am Note Date/Time June 30, 2023 10:41am [facility] Medical Records Department [address] [place] [id number] History & Physical Exam 06/30/23 1036 MR#: [id number] Acct: [id number] Name: LUCY ANDERSON Rep #:[id number] : 2005 18 From: Diego Ramos PCP: CARMEN Schroeder Status:AD M IN [place] [facility] [place] [id number] HPI - General General Date of Admission: 06/30/23 Date of Service: 06/30/23 Chief Complaint: Acute onset abdominal pain with associated nausea and vomiting HPI Narrative LUCY NADERSON, is a 18 F who presents to [facility] ER with complaints of acute onset upper abdominal pain and associated nausea and vomiting. She states she has experienced this pain to a milder degree ever since her son was born 8 weeks ago, but after this started at approximately 1600 yesterday it became persistentand associated with the vomiting- both of which were new from her prior presentations. She describes the pain as starting in the right upper quadrant and wrapping around to the back shortly after eating clam chowder yesterday. Presently, while at rest, she denies any particular discomfort. Patient's ER work-up is notable for CT imaging that showed periportal edema but no evidence of cholelithiasis. CBC demonstrated normal white blood cell count but there is evidence of neutrophilia in the differential. CMP shows cholestatic pattern to the elevation of patient's LFTs and hyperbilirubinemia with a total bilirubin of 2.0. Reflex ultrasound was requested by me and showedevidence of cholelithiasis with a 8 mm stone in the gallbladder neck as well as mild common bile duct dilatation to a diameter of 8.3. Notably, radiology does not identify any evidence of cholecystitis with gallbladder wall thickening. Patient has no significant past medical history apart from some anxiety and migraines. There is no past surgical history. 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 occupational exposures/hazards: No pets and animals: Yes (boyfriend changing litter box) pets and animals: cat(s) and dog(s) history of recent travel: No sexually active: Yes Smoking Status: Never smoker second hand exposure: Yes alcohol intake: never substance use type: does not use well-balanced diet: rarely or never caffeine: Yes Type: carbonated beverages Number of servings: 2 and coffee Number of servings: 2 eating out: 1-3 times/week what type of physical activity do you participate in: walking frequency: 3-4 times per week seatbelt use: sometimes do you feel safe at home: Yes ROS Constitutional Constitutional: Denies chills or fever(s) Gastrointestinal Gastrointestinal: Reports abdominal pain, nausea and vomiting Vital Signs Vital Signs Vital Signs: 06/30/23 02:44 06/30/23 06:14 06/30/23 08:00 Temperature 97.9 F 97.7 F L Temperature Source Temporal Oral Pulse Rate 76 78 Respiratory Rate 15 16 18 Blood Pressure 111/82 H 121/78 H Blood Pressure Mean 91 92 Pulse Ox 99 98 Oxygen Delivery Method Room Air Room Air 06/30/23 10:00 Temperature Temperature Source Pulse Rate Respiratory Rate 18 Blood Pressure Blood Pressure Mean Pulse Ox Oxygen Delivery Method Weight Weight: 188 lb 7.924 oz Body Mass Index (BMI) 33.3 Physical Exam Const alert, oriented x3, no apparent distress and well nourished General Appearance: cooperative Resp normal respiratory effort GI GI Narrative: Laxity of abdominal wall with some striae consistent with recent weight loss from . Patient's abdomen is nondistended. There is tenderness presentin the right upper quadrant and epigastrium. Patient does have a positive Hernandez sign. Results Lab / Micro Data 06/30/23 03:30 06/30/23 03:30 Labs: Laboratory Results - last 24 hr 06/30/23 03:30: WBC 6.4, RBC 5.10, Hgb 13.5, Hct 43.8, MCV 85.9, MCH 26.5 L, MCHC 30.8 L, RDW Std Deviation 43.7, RDW Coeff of Cristino 13.8, Plt Count 229, MPV 11.2, Immature Gran % (Auto) 0.300, Neut % (Auto) 82.9 H, Lymph % (Auto) 8.6 L, Creek % (Auto) 6.9, Eos % (Auto) 0.8, Baso % (Auto) 0.5, Absolute Neuts (auto) 5.3, Absolute Lymphs (auto) 0.55 L, Nucleated RBC % 0, Differential Comment SCANNED, Sodium 139, Potassium 3.7, Chloride 107, Carbon Dioxide 27.0, Anion Gap5, BUN 11, Creatinine 0.85, Estim Creat Clear Calc 87.33, Est GFR (MDRD) Af Obmd484, Est GFR (MDRD) Non-Af 91, BUN/Creatinine Ratio 13.0, Glucose 151 H, Calcium9.7, Total Bilirubin 2.00 H, Direct Bilirubin 1.49 H, AST 636 H, ALT 399 H, Alkaline Phosphatase 407 H, Total Protein 7.9, Albumin 4.2, Globulin 3.7, Hiedtz39 06/30/23 04:30: Urine Color Yellow, Urine Clarity Clear, Urine pH 6.5, Ur Specific [place] 1.020, Urine Protein 30 H, Urine Glucose (UA) Normal, Urine Ketones 5 H, Urine Occult Blood Negative, Urine Nitrite Negative, Urine Bilirubin 3 H, Urine Urobilinogen 4 H, Ur Leukocyte Esterase 25 H, Urine RBC 0 SEEN, Urine WBC 0 SEEN, Ur Squamous Epith Cells 0-5 SEEN, Urine Bacteria 1+, Urine Mucus 0 SEEN Imagaing Radiology Impression Abdomen/Pelvis CT 06/30/23 04:06 IMPRESSION: 1. Mild pericholecystic and periportal edema. This may be due to rapid IV hydration. No radiopaque stone identified. 2. Constipation. Electronically Signed: Diego Tejada MD at 5:05 EST , Gallbladder Ultrasound 06/30/23 05:33 IMPRESSION: 1. Cholelithiasis and sludge within the gallbladder with an 8 mm stone at the gallbladder neck. 2. Common bile duct is mildly enlarged at 8.3 mm. No choledocholithiasis identified. Electronically Signed: Diego Tejada MD at 7:34 EST , Assessment & Plan Assessment/Plan (1) Choledocholithiasis with acute cholecystitis: PLAN: This is a 18-year-old, otherwise healthy but recently , female who presents with acute onset right upper quadrant abdominal discomfort and associated nausea and vomiting. Given her ER work-up her presentation is highlysuggestive for choledocholithiasis with associated early cholecystitis. More specifically she has transaminitis with hyperbilirubinemia and a cholestatic pattern, dilatation of her common bile duct and cholelithiasis showing on ultrasound. With exam she has a positive Hernandez sign. Taken together, I have recommended that we proceed with admission, IV antibiotics and trending her comprehensive metabolic panel. If it downtrends further tomorrow, will plan forcholecystectomy with intraoperative cholangiography. If, however, we observe anincrease in her LFTs there may be an indication to involve gastroenterology in consultation prior to proceeding to surgery. Given that no operation is plannedfor today will go ahead with a clear liquid diet. Patient has informed me that she is breast-feeding her and wishes to return to this following her hospital stay. Charges/Coding Visit Charges Inpatient E&M: 64923 Init Hosp L2 06/30/23 1150 <Electronically signed by Diego Oscar MD> Cosigner Signature (if applicable): CC: CARMEN Bloom; Dr. Diego Oscar MD~ Signed [facility] Work Phone: [phone] History of Present illness Narrative* Jeremias Arauz APRN.OVER HAULER HELPER - 03/09/2023 8:15 AM EDT Subjective HPI Nontoxic-appearing 31-week female presents to urgent care with chief complaint of upper respiratory tract like infection. Duration of symptoms 2 days. Associated symptoms sore throat, nasal congestion, nasal discharge and nonproductive cough. Patient denies the use of any bifj-ioa-wlccafd medications or home remedies for symptom management. Fever last night has been fever free upon arising. No meds today. Patient denies any productive cough, fever, chest pain, shortness of breath, pleuritic pain, rash, abdominal pain, nausea, vomiting, no vaginal discharge leaking of fluid good fetalmovement, or change in bowel or bladder habit. Past medical history prescription medication use yehuda rgies reviewed. .Patient presents with: Pain, Throat: Pt reported 31 wk gestation, fever x2 days. PAST MEDICAL HISTORY Diagnosis Date ADD (attention deficit disorder) 10/05/2011 NEGATIVE HISTORY OF 06/26/14 Normal Color Vision NEGATIVE MEDICAL HISTORY PAST SURGICAL HISTORY Procedure Laterality Date TONSILLECTOMY & ADENOIDECTOMY <AGE 10 11/05/08 ALLERGIES Doxycycline MEDICATIONS vit no.124/iron/folic ( VITAMIN ORAL) Take by mouth. ondansetron (ZOFRAN) 8 mg tablet Take 1 Tablet (8 mg) by mouth every 8 hours as needed for Nausea for up to 21 days SUMAtriptan (IMITREX) 50 mg tablet Take 1-2 tabs at onset of headache, may repeat dose 2 hours later prn with a max dose of 200 mg per day spironolactone (ALDACTONE) 50 mg tablet TAKE 1 TABLET BY MOUTH ONCE DAILY at the same time every day (Patient not taking: Reported on 10/19/2022) Azelaic Acid 15 % gel Apply to affected area. (Patient not taking: Reported on 10/19/2022) lisdexamfetamine (VYVANSE) 20 mg capsule Take 1 capsule by mouth once daily. (Patient not taking: Reported on 06/28/2021) FAMILY HISTORY Problem Relation Age of Onset Hypertension Paternal Grandmother Prostate Cancer Paternal Grandfather Social History Tobacco Use Smoking status: Never Passive exposure: Yes Smokeless tobacco: Never Tobacco comments: dad and mom smokes outside Substance Use Topics Alcohol use: No Drug use: No BP 118/64 Pulse 102 Temp 36.7 C (98.1 F) (Temporal) Resp 16 Wt 92 kg (202 lb 12.8 oz) LMP(Approximate) SpO2 98% Review of Systems Constitutional: Positive for fever. Negative for chills and malaise/fatigue. HENT: Positive for congestion and sore throat. Negative for ear discharge, ear pain and sinus pain. Eyes: Negative for blurred vision, pain, discharge and redness. Respiratory: Positive for cough. Negative for hemoptysis, sputum production, shortness of breath, wheezing and stridor. Cardiovascular: Negative for chest pain. Gastrointestinal: Negative for abdominal pain, diarrhea, nausea and vomiting. Musculoskeletal: Negative for myalgias. Skin: Negative for itching and rash. Neurological: Positive for headaches. Negative for dizziness. Objective Physical Exam Constitutional: General: She is not in acute distress. Appearance: She is not diaphoretic. HENT: Head: Normocephalic. Jaw: No trismus, tenderness, swelling or pain on movement. Right Ear: Tympanic membrane, ear canal and external ear normal. Left Ear: Tympanic membrane, ear canal and external ear normal. Nose: Congestion present. Mouth/Throat: Mouth: Mucous membranes are moist. Pharynx: Oropharynx is clear. Uvula midline. No pharyngeal swelling, oropharyngeal exudate, posterior oropharyngeal erythema or uvula swelling. Eyes: Conjunctiva/sclera: Conjunctivae normal. Pupils: Pupils are equal, round, and reactive to light. Cardiovascular: Rate and Rhythm: Normal rate and regular rhythm. Heart sounds: Normal heart sounds. Pulmonary: Effort: Pulmonary effort is normal. No tachypnea, accessory muscle usage or respiratory distress. Breath sounds: Normal breath sounds. No stridor. No wheezing, rhonchi or rales. Abdominal: General: There is no distension. Palpations: Abdomen is soft. Tenderness: There is no abdominal tenderness. There is no guarding or rebound. Musculoskeletal: Cervical back: Normal range of motion and neck supple. No edema, erythema, rigidity or tenderness. No pain with movement. Normal range of motion. Lymphadenopathy: Cervical: No cervical adenopathy. Skin: General: Skin is warm and dry. Neurological: Mental Status: She is alert and oriented to person, place, and time. ASSESSMENT/PLAN: 1. Sore throat - ICD9: 462, ICD10: J02.9 (primary diagnosis) - STREP A MOLECULAR (POC) 2. URI, acute - ICD9: 465.9, ICD10: J06.9 Strep test negative. Diagnosed with viral URI. Recommended doing a home COVID test today. 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 Patient was educated on supportive therapies. Patient will follow up with primarycare provider 2 to 3 days reevaluation. Patient was instructed to immediately proceed to emergency room for any new, worsening, or symptoms lasting longer than anticipated. The patient's clinical presentation is otherwise unremarkable at this time. Based on exam and clinical finding, the patient isstable for discharge. Plan of care was discussed with patient. Patient verbalizes understanding andagrees to plan of care. This note was generated using [employer]. It may contain errors in wording, punctuation, or spelling. Jeremias Arauz APRN.NANCY documented in this encounter[facility] History of Present illness Narrative* SHERI Sibley - 10/19/2022 3:21 PM EST Images from the original note were not included. This note was created using NoteWriter. Subjective Lucy Anderson is a 17 year old female. HPI 17-year-old female presents for left-sided buttock/left hip pain for the past 1 to 2 weeks. Patient states she has had issues with her low back in the past. She is currently . She states that she has been having left-sided low back and left buttock pain for the past week or 2. No fall or injury. States pain is worse with walking and movement. She points to her left gluteus and states this is where most of the pain is. Occasionally radiates to the back of her thigh. She denies any mid back pain. No urinary symptoms. No loss of bowel or bladder function. No numbness in the legs. No saddle anesthesia. No vaginal discharge or bleeding. She saw her OB yesterday. She has had an ultrasound confirming IUP. She denies any fevers. She has not tried anything [id number] for pain. PAST MEDICAL HISTORY Diagnosis Date ADD (attention deficit disorder) 10/05/2011 NEGATIVE HISTORY OF 06/26/14 Normal Color Vision NEGATIVE MEDICAL HISTORY PAST SURGICAL HISTORY Procedure Laterality Date TONSILLECTOMY & ADENOIDECTOMY <AGE 10 11/05/08 ALLERGIES Doxycycline MEDICATIONS vit no.124/iron/folic ( VITAMIN ORAL) Take by mouth. SUMAtriptan (IMITREX) 50 mg tablet Take 1-2 tabs at onset of headache, may repeat dose 2 hours later prn with a max dose of 200 mg per day ondansetron (ZOFRAN) 8 mg tablet Take 1 Tablet (8 mg) by mouth every 8 hours as needed for Nausea for up to 21 days spironolactone (ALDACTONE) 50 mg tablet TAKE 1 TABLET BY MOUTH ONCE DAILY at the same time every day (Patient not taking: Reported on 10/19/2022) Azelaic Acid 15 % gel Apply to affected area. (Patient not taking: Reported on 10/19/2022) lisdexamfetamine (VYVANSE) 20 mg capsule Take 1 capsule by mouth once daily. (Patient not taking: Reported on 06/28/2021) FAMILY HISTORY Problem Relation Age of Onset Hypertension Paternal Grandmother Prostate Cancer Paternal Grandfather Social History Tobacco Use Smoking status: Never Passive exposure: Yes Smokeless tobacco: Never Tobacco comments: dad and mom smokes outside Substance Use Topics Alcohol use: No Drug use: No Review of Systems Constitutional: Negative for chills and fever. HENT: Negative for congestion, ear pain and sore throat. Respiratory: Negative for cough and shortness of breath. Cardiovascular: Negative for chest pain. Gastrointestinal: Negative for diarrhea and vomiting. Musculoskeletal: Positive for arthralgias (L hip) and back pain. Objective BP 122/80 Pulse 91 Temp 36.9 C (98.5 F) (Tympanic) Resp 18 Wt 87.5 kg (192 lb 12.8 oz) SpO2 98% Physical Exam Vitals and nursing note reviewed. Constitutional: General: She is not in acute distress. Appearance: Normal appearance. She is not toxic-appearing. Cardiovascular: Rate and Rhythm: Normal rate and regular rhythm. Pulmonary: Effort: Pulmonary effort is normal. Breath sounds: Normal breath sounds. Abdominal: General: Abdomen is flat. Palpations: Abdomen is soft. Tenderness: There is no abdominal tenderness. There is no right CVA tenderness or left CVA tenderness. Comments: No tenderness Musculoskeletal: Lumbar back: Tenderness present. No bony tenderness. Negative right straight leg raise test and negative left straight leg raise test. Back: Comments: Tenderness over left buttock and left lower lumbar paraspinal muscles. No midline tenderness. No CVA tenderness. Pain worse with movement. Negative seated straight leg raise. Normal sensation lower extremities. Normal gait. Skin: General: Skin is warm and dry. Neurological: Mental Status: She is alert. Assessment and Plan ASSESSMENT/PLAN: 1. Lumbar pain - ICD9: 724.2, ICD10: M54.50 (primary diagnosis) -No fall or injury. Low suspicion for fracture. Also, patient is . I do not recommend imaging at this time. -Recommend supportive measures at home, ice, heat, Tylenol as needed. -Follow-up with OB and PCP if symptoms do not improve. -No urinary symptoms. Pain is more in the buttocks, low suspicion for UTI. -Patient had ultrasound yesterday that was normal. 2. Left hip pain - ICD9: 719.45, ICD10: M25.552 -Likely musculoskeletal. See above. Diagnosis and treatment plan were discussed and questions were answered to the patient's satisfaction. Pt acknowledged understanding of concepts and follow up plan. Specific signs and symptoms that would indicate the need for higher level of care were discussed in detail warranting prompt ER evaluation. SHERI Sibley documented in this encounterOhio[facility] HospitalDis[facility] camp[facility] summary Author Good Mabry [facility] Note Date/Time November 25, 2024 2:2 1am [facility] Medical Records Department [address] [place] [address] Emergency Department Summary 11/25/24 MR#: [id number] Acct: [id number] Name: LUCY ANDERSON Rep #:[id number] : 2005 19 From: Good Mabry DO PCP: Dr. Alisha Heller MD Status:REG ER Location: ED HPI History of Present Illness Chief Complaint: Anxiety Narrative Narrative: Patient is a 33-jady[age]bkf-year-old female with past medical history of anxiety, migraines, cholecystectomy who presented to the emergency department the chief complaint of abdominal pain. Patient states that her pain is in the epigastric region rates her pain a 8 out of 10. States that this feels similar to when shehad her gallbladder out. Patient denies recent sick contacts. She states that she has been passing gas. Patient states that she did have 1 episode of vomiting earlier today and feels that this was secondary to her freaking herselfout. [facility] Medical History Vaginal delivery Anxiety Migraines Home Medications ?Medication ?Instructions ?Recorded ?Last Taken ?Type escitalopram oxalate 10 mg tablet 10 mg PO QDAY Unknown History (Lexapro) levonorgestrel 20.4 mcg/24 hr (up 1 device intrauterin e ONCE 06/16/24 Unknown History to 8 yrs) 52 mg intrauterine device (Liletta) dextroamphetamine-amphetamine ER 20 mg PO BID 11/24/24 Unknown History 20 mg 24hr capsule,extend release dicyclomine 20 mg tablet 20 mg PO TID #30 tabs Unknown Rx ondansetron 4 mg disintegrating 4 mg PO Q6H PRN nausea and 11/25/24 Unknown Rx tablet vomiting #20 tabs Allergy/AdvReac Type Severity Reaction Status Date / Time doxycycline Allergy Intermediate hives, Verified 11/24/24 22:46 itching Family History Father Heart disease, Onset Age: 50 [place] Surgical History Status post laparoscopic cholecystectomy Social History adopted: No household members: other details: 3 roommates housing: house current occupational status: employed 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 occupational exposures/hazards: No pets and animals: Yes (boyfriend changing litter box) pets and animals: cat(s) and dog(s) history of recent travel: No sexually active: Yes Smoking Status: Current every day smoker tobacco type: e-cigarettes second hand exposure: Yes alcohol intake: never substance use type: does not use well-balanced diet: rarely or never caffeine: Yes Type: carbonated beverages Number of servings: 2 and coffee Number of servings: 2 eating out: 1-3 times/week what type of physical activity do you participate in: walking frequency: 3-4 times per week seatbelt use: sometimes do you feel safe at home: Yes ROS ROS ED ROS Narrative Constitutional: Denies fevers, chills, headaches Cardiovascular: Denies chest pain or palpitations Respiratory: Denies cough and shortness of breath Abdomen: Complains of abdominal pain as noted above and 1 episode of emesis as noted above denies any other vomiting or diarrhea : Denies urinary symptoms, denies possibility states that she has IUD in place Neurological: Denies numbness, weakness, tingling Musculoskeletal: Denies back pain Skin: Denies rashes or lesions EXAM Physical Exam Narrative Exam Narrative: General: Patient is lying in bed rest comfortably did not appear to be in acute distress Head: Atraumatic, normocephalic Eyes: PERRL bilaterally, EOMI bilateral, no conjunctival injection noted Neck: Soft, supple, trachea midline Cardiovascular: Patient is tachycardic with a regular rhythm Respiratory: Clear to auscultation bilaterally Abdomen: Soft, nondistended, tender to palpation epigastric region no rebound orguarding on exam Extremities: +5/5 strength noted in the bilateral upper and lower extremities Neurological: Patient follow commands and that she was at [facility] [id number] Skin: Warm, dry, intact no rashes or lesions noted Const Vital Signs: 11/24/24 22:46 11/24/24 23:48 11/25/24 01:00 Temperature 96.9 F L Temperature Source Temporal Pulse Rate 139 H 114 H 94 Respiratory Rate 28 H 18 18 Blood Pressure 122/90 H 115/83 H 117/60 Blood Pressure Mean 100 93 79 Pulse Ox 100 100 100 Oxygen Delivery Method Room Air Room Air Room Air MDM MDM MDM Narrative Medical decision making narrative: Patient is a 19-year-old female who presented to the emergency department chief complaint of abdominal pain. On the differential diagnose includes but not limited to bowel obstruction, viral gastroenteritis, pancreatitis. Once workup is obtained reviewed she will be reevaluated. Patient be given IV fluids morphine Zofran. Patient CBC reviewed and was largely unremarkable with no evidence leukocytosis white blood count normal at 10.7, hemoglobin is 14.4, plate count normal at 242. Patient sodium was 139, potassium mildly low at 3.2 she will be given 40 mill equivalents of oral supplementation here, creatinine normal at 0.79. Patient AST and ALT were normal at 18 and 16 respectively total bilirubin normal at 0.39. Patient lipase is normal at 19 test was negative. Patient CT abdomen pelvis with IV contrast reviewed showed no evidence of acute processes. On reevaluation patient she is feeling better she like to go home at this point time. Prescription for Bentyl and Zofran will be sent to the pharmacy. She wasadvised to continue supportive care and return with worsening symptoms or concerns. She is agreeable this plan all question concerns answered she was discharged home in stable condition. Lab Data Labs: Laboratory Results - last 24 hr 11/25/24 00:43 WBC 10.7 RBC 4.95 Hgb 14.4 Hct 42.5 MCV 85.9 MCH 29.1 MCHC 33.9 RDW Std Deviation 40.2 RDW Coeff of Cristino 13.1 Plt Count 242 MPV 11.2 Immature Gran % (Auto) 0.300 Neut % (Auto) 63.0 Lymph % (Auto) 28.7 Creek % (Auto) 6.9 Eos % (Auto) 0.7 Baso % (Auto) 0.4 Absolute Neuts (auto) 6.7 Absolute Lymphs (auto) 3.07 Nucleated RBC % 0 Sodium 139 Potassium 3.2 L Chloride 104 Carbon Dioxide 21.6 Anion Gap 13 BUN 14 Creatinine 0.79 Estim Creat Clear Calc 114.95 Est GFR (MDRD) Non-Af 110 BUN/Creatinine Ratio 17.3 Glucose 103 H Calcium 9.6 Total Bilirubin 0.39 AST 18 ALT 16 Alkaline Phosphatase 107 H Total Protein 7.1 Albumin 4.7 Globulin 2.3 Albumin/Globulin Ratio 2.0 Lipase 19 Serum , Qual NEGATIVE Radiography Diagnostic Testing: Clinical Impression(s) from Imaging Studies Abdomen/Pelvis CT 11/25/24 00:25 IMPRESSION: No evidence of acute process. Reading Location: [facility] Discharge Plan Triage Chief Complaint: Anxiety ED Provider: Good Mabry Dx/Rx/DC Orders Clinical Impression: Abdominal pain, IUD (intrauterine device) in place Prescriptions: New dicyclomine 20 mg tablet 20 mg PO TID Qty: 30 0RF ondansetron 4 mg tablet,disintegrating 4 mg PO Q6H PRN (Reason: nausea and vomiting) Qty: 20 0RF No Action escitalopram oxalate [Lexapro] 10 mg tablet 10 mg PO QDAY Liletta 20.4 mcg/24 hr (8 yrs) 52 mg intrauterine device 1 device intrauterine ONCE Rx Instructions: as a single dose dextroamphetamine-amphetamine 20 mg capsule,extended release 24hr 20 mg PO BID Primary Care Provider: Alisha Heller Referrals: Alisha Heller MD [Primary Care Provider] - Activity Restrictions/Additional Instructions: Your blood work here today was largely normal and your CT scan of your abdomen did not show any acute findings. Take prescriptions that were sent to your pharmacy as prescribed. Return with worsening symptoms or concerns otherwise follow-up with your doctor in outpatient setting. Print Language: Eritrean Disposition Disposition: Home, Self Care What to do if you have Problems For any increased pain, shortness of breath, bleeding, nausea or vomiting, chestpain, or any unexpected problems, contact your Primary Care Provider. Call [facility] ([phone]) or report to the closest Emergency Room. Call 911 if necessary. 11/25/24 0221 <Electronically signed by Good Mabry DO> Cosigner Signature (if applicable): CC: Dr. Alisha Heller MD ~ Signed [facility] Work Phone: Evaluation noteNo assessment information available [facility] Work Phone: Evaluation note* Diagnosis Other hyperlipidemia Encounter for test, result unknown [facility] Diagnosis Onset Date Resolution Status Anxiety disorder affecting , antepartum acute Obesity affecting acute acute Subchorionic hematoma in first trimester acute Supervision of normal first acute [facility] Work Phone: Evaluation note* Diagnosis Lumbar pain- Primary Lumbago Left hip pain Pain in joint, pelvic region and thigh [facility] Diagnosis Onset Date Resolution Status Anxiety disorder affecting , antepartum acute Obesity affecting acute acute Subchorionic hematoma in first trimester acute Supervision of normal first acute Anxiety disorder affecting , antepartum acute Obesity affecting acute acute Subchorionic hematoma in first trimester acute Supervision of normal first acute [facility] Work Phone: Evaluation note* Diagnosis Onset Date Resolution Status Anxiety disorder affecting , antepartum acute Obesity affecting acute acute Subchorionic hematoma in first trimester acute Supervision of normal first acute Anxiety disorder affecting , antepartum acute Obesity affecting acute acute Subchorionic hematoma in first trimester acute Supervision of normal first acute Anxiety disorder affecting , antepartum acute acute Supervision of normal first acute [facility] Work Phone: Evaluation note* Diagnosis Onset Date Resolution Status Anxiety disorder affecting , antepartum acute Obesity affecting acute acute Subchorionic hematoma in first trimester acute Supervision of normal first acute Anxiety disorder affecting , antepartum acute Obesity affecting acute acute Subchorionic hematoma in first trimester acute Supervision of normal first acute Anxiety disorder affecting , antepartum acute acute Supervision of normal first acute Anxiety disorder affecting , antepartum acute Obesity affecting acute acute Subchorionic hematoma in first trimester acute Supervision of normal first acute Anxiety disorder affecting , antepartum acute Obesity affecting acute acute Subchorionic hematoma in first trimester acute Supervision of normal first acute [facility] Work Phone: Evaluation note* Diagnosis Onset Date Resolution Status Anxiety disorder affecting , antepartum acute Obesity affecting acute acute Supervision of normal first acute Subchorionic hematoma in first trimester resolved Anxiety disorder affecting , antepartum acute acute Supervision of normal first acute Anxiety disorder affecting , antepartum acute Obesity affecting acute acute Supervision of normal first acute Subchorionic hematoma in first trimester resolved Anxiety disorder affecting , antepartum acute Obesity affecting acute acute Supervision of normal first acute Subchorionic hematoma in first trimester resolved Anxiety disorder affecting , antepartum acute Obesity affecting acute acute Supervision of normal first acute [facility] Work Phone: Evaluation note* Diagnosis Sore throat- Primary Acute pharyngitis URI, acute Acute upper respiratory infections of unspecified site [facility] Onset Date Resolution Status Anxiety disorder affecting , antepartum acute Obesity affecting acute acute Supervision of normal first acute Subchorionic hematoma in first trimester resolved Anxiety disorder affecting , antepartum acute Obesity affecting acute acute Supervision of normal first acute Anxiety disorder affecting , antepartum acute acute Supervision of normal first acute Vaginal discharge during noneactive Anxiety disorder affecting , antepartum acute Obesity affecting acute acute Supervision of normal first acute Anxiety disorder affecting , antepartum acute Obesity affecting acute acute Supervision of normal first acute Anxiety disorder affecting , antepartum acute Obesity affecting acute acute Supervision of normal first acute [facility] Work Phone: Evaluation note* Diagnosis Onset Date Resolution Status Anxiety disorder affecting , antepartum acute Obesity affecting resolved resolved Supervision of normal first resolved Anxiety disorder affecting , antepartum acute Obesity affecting resolved resolved Supervision of normal first resolved Anxiety disorder affecting , antepartum acute Obesity affecting resolved resolved Supervision of normal first resolved Anxiety disorder affecting , antepartum acute resolved Supervision of normal first resolved Anxiety disorder affecting , antepartum acute Obesity affecting resolved resolved Supervision of normal first resolved Anxiety disorder affecting , antepartum acute Obesity affecting resolved resolved Supervision of normal first resolved Anxiety disorder affecting , antepartum acute Decreased movement aff ecting management of mother, antepartum resolved Obesity affecting resolved resolved Supervision of normal first resolved Anxiety disorder affecting , antepartum acute Decreased movement aff ecting management of mother, antepartum resolved Obesity affecting resolved resolved Supervision of normal first resolved Anxiety disorder affecting , antepartum acute Vaginal delivery acute Encounter for induction of labor resolved Obesity affecting resolved Oligohydramnios in third trimester resolved resolved Supervision of normal first resolved Uterine size date discrepancy resolved Routine Follow-Up noneactive Acute calculous cholecystitis acute Elevated liver enzymes acute [facility] Work Phone: Evaluation note* Diagnosis Onset Date Resolution Status Anxiety disorder affecting , antepartum acute Obesity affecting resolved resolved Supervision of normal first resolved Anxiety disorder affecting , antepartum acute Obesity affecting resolved resolved Supervision of normal first resolved Anxiety disorder affecting , antepartum acute Obesity affecting resolved resolved Supervision of normal first resolved Anxiety disorder affecting , antepartum acute resolved Supervision of normal first resolved Anxiety disorder affecting , antepartum acute Obesity affecting resolved resolved Supervision of normal first resolved Anxiety disorder affecting , antepartum acute Obesity affecting resolved resolved Supervision of normal first resolved Anxiety disorder affecting , antepartum acute Decreased movement aff ecting management of mother, antepartum resolved Obesity affecting resolved resolved Supervision of normal first resolved Anxiety disorder affecting , antepartum acute Decreased movement aff ecting management of mother, antepartum resolved Obesity affecting resolved resolved Supervision of normal first resolved Anxiety disorder affecting , antepartum acute Vaginal delivery acute Encounter for induction of labor resolved Obesity affecting resolved Oligohydramnios in third trimester resolved resolved Supervision of normal first resolved Uterine size date discrepancy resolved Routine Follow-Up noneactive Acute calculous cholecystitis acute Choledocholithiasis with acute cholecystitis acute Elevated liver enzymes acute [facility] Work Phone: Evaluation note* Diagnosis Onset Date Resolution Status IUD check up noneactive [facility] Work Phone: Evaluation note* Diagnosis Pain, dental- Primary Unspecified disorder of the teeth and supporting structures documented in this encounter [facility] Discharge instructions Additional Instructions Your blood work here today was largely normal and your CT scan of your abdomen did not show any acute findings. Take prescriptions that were sent to your pharmacy as prescribed. Return with worsening symptoms or concerns otherwise follow-up with your doctor in outpatient setting.[facility] Work Phone: Reason for referral (narrative)No reason for referral information availableW[facility] Work Phone: Chief Complaint and Reason for Visit Chief Complaint ACNE VULGARIS Chief Complaint NOB LMP 08/04 Reason for Visit Anxiety disorder aff ecting , antepartum Obesity affecting Subchorionic hematoma in first trimester Supervision of normal first Chief Complaint NOB LMP 08/04 10 wk early OB f/u Reason for Visit Anxiety disorder aff ecting , antepartum Obesity affecting Subchorionic hematoma in first trimester Supervision of normal first Anxiety disorder affecting , antepartum Obesity affecting Subchorionic hematoma in first trimester Supervision of normal first Chief Complaint NOB LMP 08/04 10 wk early OB f/u 15 WK OB Reason for Visit Anxiety disorder aff ecting , antepartum Obesity affecting Subchorionic hematoma in first trimester Supervision of normal first Anxiety disorder affecting , antepartum Obesity affecting Subchorionic hematoma in first trimester Supervision of normal first Anxiety disorder affecting , antepartum Supervision of normal first Chief Complaint NOB LMP 08/04 10 wk early OB f/u 15 WK OB 19 WK OB 23 WK EST OB DECREASE MOVEMENT Reason for Visit Anxiety disorder aff ecting , antepartum Obesity affecting Subchorionic hematoma in first trimester Supervision of normal first Anxiety disorder affecting , antepartum Obesity affecting Subchorionic hematoma in first trimester Supervision of normal first Anxiety disorder affecting , antepartum Supervision of normal first Anxiety disorder affecting , antepartum Obesity affecting Subchorionic hematoma in first trimester Supervision of normal first Anxiety disorder affecting , antepartum Obesity affecting Subchorionic hematoma in first trimester Supervision of normal first Chief Complaint 10 wk early OB f/u 15 WK OB 19 WK OB 23 WK EST OB DECREASE MOVEMENT DECREASE MOVEMENT 27 WK OB Reason for Visit Anxiety disorder aff ecting , antepartum Obesity affecting Supervision of normal first Subchorionic hematoma in first trimester Anxiety disorder affecting , antepartum Supervision of normal first Anxiety disorder affecting , antepartum Obesity affecting Supervision of normal first Subchorionic hematoma in first trimester Anxiety disorder affecting , antepartum Obesity affecting Supervision of normal first Subchorionic hematoma in first trimester Anxiety disorder affecting , antepartum Obesity affecting Supervision of normal first Chief Complaint 23 WK EST OB DECREASE MOVEMENT DECREASE MOVEMENT 27 WK OB 30 WK OB 32 WK OB 34 WK OB 36 WK OB Reason for Visit Anxiety disorder aff ecting , antepartum Obesity affecting Supervision of normal first Subchorionic hematoma in first trimester Anxiety disorder affecting , antepartum Obesity affecting Supervision of normal first Anxiety disorder affecting , antepartum Supervision of normal first Vaginal discharge during Anxiety disorder affecting , antepartum Obesity affecting Supervision of normal first Anxiety disorder affecting , antepartum Obesity affecting Supervision of normal first Anxiety disorder affecting , antepartum Obesity affecting Supervision of normal first Chief Complaint 32 WK OB 34 WK OB 36 WK OB 37 WK OB 38 WK OB 39 WK OB RULE OUT LABOR RULE OUT LABOR 40 WK OB GROWTH W RONALDO VAG DELIVERY INDUCITON INDUCITON VAG DELIVERY VAG DELIVERY visit (obstetrics) ACUTE CALCULOUS CHOLECYSTITIS Reason for Visit Anxiety disorder aff ecting , antepartum Obesity affecting Supervision of normal first Anxiety disorder affecting , antepartum Obesity affecting Supervision of normal first Anxiety disorder affecting , antepartum Obesity affecting Supervision of normal first Anxiety disorder affecting , antepartum Supervision of normal first Anxiety disorder affecting , antepartum Obesity affecting Supervision of normal first Anxiety disorder affecting , antepartum Obesity affecting Supervision of normal first Anxiety disorder affecting , antepartum Decreased movement affecting management of mother, antepartum Obesity affecting Supervision of normal first Anxiety disorder affecting , antepartum Decreased movement affecting management of mother, antepartum Obesity affecting Supervision of normal first Anxiety disorder affecting , antepartum Vaginal delivery Encounter for induction of labor Obesity affecting Oligohydramnios in third trimester Supervision of normal first Uterine size date discrepancy Routine Follow-Up Acute calculous cholecystitis Elevated liver enzymes Chief Complaint 32 WK OB 34 WK OB 36 WK OB 37 WK OB 38 WK OB 39 WK OB RULE OUT LABOR RULE OUT LABOR 40 WK OB GROWTH W RONALDO VAG DELIVERY INDUCITON INDUCITON VAG DELIVERY VAG DELIVERY visit (obstetrics) CHOLECYSTITIS WITH CHOLEDOCHOLITHIASIS CHOLECYSTITIS WITH CHOLEDOCHOLITHIASIS Reason for Visit Anxiety disorder aff ecting , antepartum Obesity affecting Supervision of normal first Anxiety disorder affecting , antepartum Obesity affecting Supervision of normal first Anxiety disorder affecting , antepartum Obesity affecting Supervision of normal first Anxiety disorder affecting , antepartum Supervision of normal first Anxiety disorder affecting , antepartum Obesity affecting Supervision of normal first Anxiety disorder affecting , antepartum Obesity affecting Supervision of normal first Anxiety disorder affecting , antepartum Decreased movement affecting management of mother, antepartum Obesity affecting Supervision of normal first Anxiety disorder affecting , antepartum Decreased movement affecting management of mother, antepartum Obesity affecting Supervision of normal first Anxiety disorder affecting , antepartum Vaginal delivery Encounter for induction of labor Obesity affecting Oligohydramnios in third trimester Supervision of normal first Uterine size date discrepancy Routine Follow-Up Acute calculous cholecystitis Choledocholithiasis with acute cholecystitis Elevated liver enzymes Chief Complaint string check Reason for Visit IUD check up Chief Complaint Admit Date anxiety November 24, 2024 10: 45pm Family History No Family History Records Found Relationship Condition Age at Onset Recorded Date/T penelope father Cardiac disease 50 Summary Purpose Advance Directives No Advanced Directives Records Found Advance Directive Response Recorded Date/ Time Living Will No June 30 023 2:49am Power of Stock Puller No June 30, 2023 2:49am Advance Directive Response Recorded Date/ Time Living Will No June 30 023 11:14am Power of Stock Puller No June 30, 2023 11:14am Advance Directive Response Recorded Date/ Time Living Will No June 30 12:14pm Power of Stock Puller No June 30, 2023 12:14pm Advance Directive Response Recorded Date/ Time Living Will No November 24, 2024 11:42pm Do you have a [facility] Power of Stock Puller? No November 24, 2024 11:42pm Additional Source Comments Goals (unrecognized section and content) Goals may be documented in a n alternate sectionGoals may be documented in an alternate sectionGoals may be documented in an alternate sectionGoals may be documented in an alternate sectionGoals may be documented in an alternate sectionGoals may be documented in an alternate sectionGoals may be documented in an alternate sectionGoals may be documented in an alternate sectionGoals may be documented in an alternate section Care Teams (unrecognized sec tion and content) Edging Catcher Relationship Specialty Start Date End Date Inez Martinez MD [facility] [place] [address] PCP - General Pediatrics 03/07/21 Team Status: Active Member Role Status Dates Dr. Salomon Hughes DO Family Provider Active Marine Brittny BODY AND FENDER WORKER, BODY AND FENDER WORKER-C Primary Care Provider Activ e Team Status: Inactive Member Role Status Dates Marine Callao BODY AND FENDER WORKER, BODY AND FENDER WORKER-C Primary Care Provider, Refe rring Provider Active Dr. Negar Chavez MD Attending Provider Active Team Status: Inactive Member Role Status Dates Marine Bloom BODY AND FENDER WORKER, BODY AND FENDER WORKER-C Primary Care Provider Activ e Dr. Negar Chavez MD Attending Provider, Referr ing Provider Active Team Status: Inactive Member Role Status Dates Marine Brittny BODY AND FENDER WORKER, BODY AND FENDER WORKER-C Primary Care Provider, Refe rring Provider Active Dr. Cookie Alvarado DO Attending Provider Activ e Team Status: Inactive Member Role Status Dates Marine Brittny BODY AND FENDER WORKER, BODY AND FENDER WORKER-C Primary Care Provider, Refe rring Provider Active Tiffanie Choe BODY AND FENDER WORKER, BODY AND FENDER WORKER-C Attending Provider Active Team Status: Inactive Member Role Status Dates Marine Callao BODY AND FENDER WORKER, BODY AND FENDER WORKER-C Primary Care Provider, Refe rring Provider Active Anne Brooks CNM Attending Provider Active Team Status: Active Member Role Status Dates Marinerobert Bloom BODY AND FENDER WORKER, BODY AND FENDER WORKER-C Primary Care Provider Activ e Dr. Negar Chavez MD Attending Pr ovider, Referring Provider, Other Provider Active Team Status: Inactive Member Role Status Dates Marinerobert Bloom BODY AND FENDER WORKER, BODY AND FENDER WORKER-C Primary Care Provider Activ e Dr. Cookie Alvarado DO Attending Provider, Refe rring Provider Active Team Status: Inactive Member Role Status Dates Marine Callao BODY AND FENDER WORKER, BODY AND FENDER WORKER-C Primary Care Provider, Refe rring Provider Active Amy Mesa CNM Attending Provider Active Team Status: Inactive Member Role Status Dates Marine Brittny BODY AND FENDER WORKER, BODY AND FENDER WORKER-C Primary Care Provider Activ e Tiffanie Choe NP, BODY AND FENDER WORKER-C Attending Provider, Referring Provider Active Team Status: Inactive Member Role Status Dates Marinerobert Bloom BODY AND FENDER WORKER, BODY AND FENDER WORKER-C Primary Care Provider Activ e Amy Mesa CNM Attending Provider, Referring Pr ovider Active Team Status: Active Member Role Status Dates Marinerobert Bloom BODY AND FENDER WORKER, BODY AND FENDER WORKER-C Primary Care Provider Activ e Dr. Cookie Alvarado DO Attending Provider, Referring Provider, Other Provider Active Team Status: Active Member Role Status Dates Marine Bloom BODY AND FENDER WORKER, BODY AND FENDER WORKER-C Primary Care Provider Activ e Dr. Negar Chavez MD Admit Provid er, Attending Provider, Other Provider Active Team Status: Active Member Role Status Dates Marine Bloom BODY AND FENDER WORKER, BODY AND FENDER WORKER-C Primary Care Provider Activ e Anne Brooks CNM Admit Provider, Other Provider Ac tive Dr. Cookie Alvarado , DO Attending Provider Activ e Team Status: Active Member Role Status Dates Marine Bloom BODY AND FENDER WORKER, BODY AND FENDER WORKER-C Primary Care Provider Activ e Anne Brooks CNM Admit Provider, Other Provider Ac tive Dr. Negar Chavez MD Attending Provider Active Team Status: Inactive Member Role Status Dates Marine Bloom BODY AND FENDER WORKER, BODY AND FENDER WORKER-C Primary Care Provider Activ e Dr. Negar Chavez MD Attending Provider Active Team Status: Active Member Role Status Dates Marine Bloom BODY AND FENDER WORKER, BODY AND FENDER WORKER-C Primary Care Provider Activ e Dr. Cr Hudson , DO Emergency Provider Active Dr. Diego Oscar MD Admit Provider, Attending Provi kirit Active Team Status: Inactive Member Role Status Dates Marine Bloom BODY AND FENDER WORKER, BODY AND FENDER WORKER-C Primary Care Provider Activ e Anne Brooks CNM Admit Provider, Attending Provide r Active Team Status: Active Member Role Status Dates Marine Bloom BODY AND FENDER WORKER, BODY AND FENDER WORKER-C Primary Care Provider Activ e Dr. Cr Hudson , Emergency Provider Active Dr. Diego Oscar MD Admit Provider, A ttending Provider, Other Provider Active Team Status: Inactive Member Role Status Dates Marine Bloom BODY AND FENDER WORKER, BODY AND FENDER WORKER-C Primary Care Provider Activ e Dr. Cr Hudson , Emergency Provider Active Dr. Diego Oscar MD Admit Provider, Attending Provi kirit Active Team Status: Inactive Member Role Status Dates Marine Bloom BODY AND FENDER WORKER, BODY AND FENDER WORKER-C Primary Care Provider Activ e Alisha Heller MD Attending Provider Active Team Status: Active Member Role Status Quiana Heller MD Primary Care Provider Active Team Status: Inactive Member Role Status Quiana Heller MD Primary Care Provider Active St art: November 24, 2024 End: November 25, 2024 Dr. Good Mabry , Emergency Provider Active Start: November 24, 2024 End: November 25, 2024 Source Comments (unrecognize d section and content) In the event this informatio n is protected by the Federal Confidentiality of Alcohol and Drug Abuse Patient Records regulations: The Federal rules restrict any use of the information to criminally investigate or prosecute any alcohol or drug abuse patient.[facility] the event this information is protected by the Federal Confidentiality of Alcohol and Drug Abuse Patient Records regulations: The Federal rules restrict any use of the information to criminally investigate or prosecute any alcohol or drug abuse patient.[facility] the event this information is protected by the Federal Confidentiality of Alcohol and Drug Abuse Patient Records regulations: The Federal rules restrict any use of the information to criminally investigate or prosecute any alcohol or drug abuse patient.[facility] Reason for Visit (unrecogniz ed section and content) Reason Comments left lower back and hip pain X 2 weeks- muscular Reason Comments Pain, Throat Pt reported 31 wk [address] station, fever x2 days. Reason Comments Dental Problem left wisdom tooth re moval x 2 weeks, still swelling after taking amoxicillin INFORMATION SOURCE (unrecogn ized section and content) DATE CREATED AUTHOR 12/12/2022 [facility] DATE CREATED AUTHOR 'S ORGANIZ ATION 04/14/2024 [facility] DATE CREATED AUTHOR AUTHOR'S ORGANIZ ATION 01/22/2025 [facility] FOR RECORDS PERTAINING TO PATIENTS WHO ARE OR HAVE BEEN ENROLLED IN A CHEMICAL DEPENDENCY/SUBSTANCEABUSE PROGRAM, SOME INFORMATION MAY BE OMITTED. This clinical summary was aggregated from multiple sources. Caution should be exercised in using it in the provision of clinical care. This summary normalizes information from multiple sources, and as a consequence, information in this document may materially change the coding, format and clinical context of patient data. In addition, data may be omitted in some cases. CLINICAL DECISIONS SHOULD BE BASED ON THE PRIMARY CLINICAL RECORDS. [facility] [employer] [facility]. provides no warranty or guarantee of the accuracy or completeness of information in this document.
== END | disposition home or self-care (01) ==
PROVIDERS: PCP Family Medicine; Referring Provider Family Medicine; Visit Provider Family Medicine
DX: G43.909 Migraine, unspecified, not intractable, without status migrainosus (principal)
CPT/HCPCS: 70450

== ENCOUNTER → 2025-06-15 | Outpatient (CLI) | payer OTHER, SELFPAY ==
--- NOTE | 2025-06-15 13:54 | US_ITS ---
PROCEDURE: BREAST LIMITED UNILATERAL 06/15/2025 REASON FOR EXAM: F, Age 20 y/o , PAIN Right breast palpable abnormality that is painful. She 1st noticed the palpable abnormality approximately 1 week ago. She noticed it after an IUD was placed. COMPARISON: None. TECHNIQUE: Procedure Code: USBRSTLIMIT Modality: US Procedure: BREAST LIMITED UNILATERAL FINDINGS: There is a solid, hypoechoic, slightly heterogeneous mass in the right breast at the 10 o'clock, 7 cm from nipple position measuring 1.7 x 1.3 x 1.0 cm. The mass is wider than it is tall and does not produce any posterior shadowing. The margins of the mass are indistinct and jagged. There is a small amount of blood flow to the mass. The mass does correlate to the palpable area that is tender. There is an axillary lymph node seen measuring 1.6 x 1.2 x 1.1 cm. The lymph node has a fatty hilum. The cortex of the lymph node is thin measuring 3 mm. There is some blood flow to the lymph node. US/Breast Limited Unilateral IMPRESSION: The solid mass in the right breast correlating to the palpable area may represe nt a fibroadenoma however, a malignancy is another consideration. Ultrasound-guided biopsy is recommended in order to completely exclude a malignancy. BI-RADS 4: SUSPICIOUS RECOMMENDATION: Biopsy Recommended Reading Location: [id number]
== END | disposition home or self-care (01) ==
PROVIDERS: PCP Family Medicine; Referring Provider Nurse Practitioner Women's Health; Visit Provider Nurse Practitioner Women's Health
DX: N64.4 Mastodynia (principal)
CPT/HCPCS: 76642

== ENCOUNTER → 2025-06-22 | Outpatient (CLI) | payer OTHER, SELFPAY ==
--- NOTE | 2025-06-22 12:00 | BRBX_PTH ---
PATIENT: LUCY ANDERSON LOC: [facility] U#:[id number] AGE/SX: 20/ ROOM: RE06/22/[address]: Dr. Diego Oscar MD : 2005 BED: DIS: 06/22/2025 SPEC #: [id number] RECD: 06/22/25 13:08 STATUS: LISA REJerry #: [id number] KESHIA: 06/22/25 12:[address]: Diego Oscar DEPT: SURGICAL PATHOLOGY RECD BY: Micah Burrell ENTERED: 06/22/25 13:43 SP TYPE: BREAST BX OTHR DR: Alisha Heller MD Tissues: A - Right breast, NOS Procedures: Surgery Specimen Level IV HEADER OPERATION: Core needle biopsy of right breast mass PRE-OP DIAGNOSIS: Right breast mass TISSUE SUBMITTED: A- Right breast tissue MICROSCOPIC DIAGNOSIS A. Right breast, mass, core biopsy: - Myxoid fibroadenoma, benign. MICROSCOPIC DESCRIPTION Slides are reviewed. GROSS DESCRIPTION A. Received in formalin labeled with the patient's name and date of . Designated as R breast tissue are multiple rendon-pink to yellow tissue cores, 0.8 cm to 1.2 cm in length by 0.2 cm in diameter. Entirely submitted in 1 cassette. Cold ischemic time: <1-minuteFormalin fixation time: 7 hours, 30 minutes NM 06/22/2025 CPT:12720
== END | disposition home or self-care (01) ==
LOC: LABSPEC 13:28
PROVIDERS: PCP Family Medicine; Referring Provider Surgery; Visit Provider Surgery
DX: D24.1 Benign neoplasm of right breast (principal)
CPT/HCPCS: 88305